=== PATIENT | male | born 1945 | race Caucasian/White ===

== ENCOUNTER 2018-04-17 10:42 | Emergency (ER) | payer OTHER, SELFPAY ==
[2018-04-17 10:49] VITALS: BP 122/81; PULSE 99; RESP 18; TEMP 36.2; O2SAT 98
[2018-04-17 11:07] VITALS: BP 129/85; PULSE 100; RESP 15; TEMP 37.1; O2SAT 97
--- NOTE | 2018-04-17 11:22 | ED_ITS ---
HPI - Male Genitourinary General Chief complaint: Urogenital-Male Stated complaint: BLOOD IN URINE Time Seen by Provider: 04/17/18 11:21 Source: patient Mode of arrival: ambulatory Limitations: no limitations History of Present Illness HPI Narrative: 72-year-old male on Pradaxa after having heart valve surgery here today with hematuria. He describes blood in his urine with pain this morning. No pain. No back pain. No history kidney stones. No fevers. He also has a bruise around his left eye. No specific trauma. He has been taking his medications. Has been having problems with follow-up with his primary doctor and also his surgeon secondary to the [place] system in his primary doctor leaving. Related Data Allergies Allergy/AdvReac Type Severity Reaction Status Date / Time No Known Drug Allergies Allergy Verified 04/17/18 10:52 Review of Systems Constitutional Denies fever(s) Cardiovascular Denies chest pain and Denies dyspnea Respiratory Denies dyspnea Gastrointestinal Gastrointestinal: Denies abdominal pain Genitourinary Reports hematuria, Denies urinary frequency, Denies urinary hesitancy and Denies urinary incontinence Musculoskeletal Denies myalgias and Denies arthralgias Integumentary/Breasts Comments: Bruising around his left eye Hematologic/Lymphatic Comments: On Pradaxa [facility] Medical History Coronary artery disease (Acute) Heart valve disease (Acute) Social History Smoking Status: Never smoker Exam Initial Vital Signs Initial Vital Signs: Vital Signs Temperature 97.2 F L 04/17/18 10:49 Pulse Rate 99 H 04/17/18 10:49 Respiratory Rate 18 04/17/18 10:49 Blood Pressure 122/81 04/17/18 10:49 Pulse Oximetry 98 04/17/18 10:49 Const General: cooperative, healthy appearing, comfortable, well developed, well groomed and No acute distress Orientation: alert, awake and oriented x3 HENMT Head: normal to inspection and normocephalic Eyes Pupils: PERRL EOM: EOM intact bilaterally Resp Effort & Inspection: normal respiratory effort Cardio Rate: regular rate Pulses: radial pulses present GI Inspection: non-distended Palpation: soft Skin Other: Small bruise on the lateral aspect of the left eye. Neuro General: alert, awake and oriented x3 Extrem General: normal to inspection and capillary refill normal Psych Appearance: grossly normal and well kempt Course Orders Ordered: ED Orders 04/17/18 11:38 Basic Metabolic Panel Stat Complete Blood Count AUTO DIFF Stat Partial Thromboplastin Time Stat Prothrombin Time INR Stat 04/17/18 12:09 Urinalysis and Microscopic Stat Vital Signs - 8 hr 04/17/18 10:49 04/17/18 11:07 04/17/18 12:11 Temperature 97.2 F L 98.7 F Pulse Rate 99 H 100 H 95 H Respiratory Rate 18 15 12 Blood Pressure 122/81 Blood Pressure [Right Arm] 129/85 126/83 Pulse Oximetry 98 97 98 MDM - Male Genitourinary Lab Data Attestation: I reviewed the patient's lab results. Result diagrams: 04/17/18 11:38 04/17/18 11:38 Lab Results 04/17/18 04/17/18 04/17/18 Range/Units 11:38 11:38 11:38 WBC 7.6 (4.5-11.0) X10^3/uL RBC 3.70 L (4.5-5.9) X10^6/uL Hgb 12.6 L (13.5-17.5) g/dL Hct 37.1 L (41-53) % MCV 100.1 H (80-100) fL MCH 34.2 H (26-34) PG MCHC 34.1 (30-36) % RDW 13.7 (11.6-14.8) % Plt Count 164 (150-400) X10^3/uL Neut % (Auto) 70.9 (50-75) % Lymph % (Auto) 19.3 L (25-40) % [place] % (Auto) 7.8 (3-14) % Eos % (Auto) 1.7 L (2-4) % Baso % (Auto) 0.3 (0-2) % Neut # (Auto) 5400 (2955-5829) /uL Lymph # (Auto) 1500 (7118-7766) /uL [place] # (Auto) 600 (0-900) /uL Eos # (Auto) 100 (0-450) /uL Baso # (Auto) 0 (0-100) /uL PT 14.4 H (10.1-12.7) SECONDS INR 1.3 (0.9-1.3) APTT 46 H (26.4-36.2) SECONDS Sodium 137 (137-145) mmol/L Potassium 4.0 (3.4-5.1) mmol/L Chloride 104 (98-107) mmol/L Carbon Dioxide 25 (22-32) mmol/L BUN 17 (9-20) mg/dL Creatinine 0.90 (0.66-1.25) mg/dL Estimated GFR > 60.0 (>60) mL/min BUN/Creatinine Ratio 18.9 (6-22) Glucose 96 (80-110) mg/dL Calcium 8.8 (8.4-10.2) mg/dL Urine Color Urine Appearance Urine pH (4.5-8.0) Ur Specific [place] (1.000-1.035) Urine Protein (Negative) Urine Glucose (UA) (Negative) g/dL Urine Ketones (NEGATIVE) Urine Occult Blood (Negative) Urine Nitrate (Negative) Urine Bilirubin (NEGATIVE) Urine Urobilinogen (0.2) E.U./dL Ur Leukocyte Esterase (NEGATIVE) Urine RBC (0-5/HPF) Urine WBC (0-5/HPF) Urine Bacteria (None) Hyaline Casts (None) Ur Culture Indicated? 04/17/18 Range/Units 12:09 WBC (4.5-11.0) X10^3/uL RBC (4.5-5.9) X10^6/uL Hgb (13.5-17.5) g/dL Hct (41-53) % MCV (80-100) fL MCH (26-34) PG MCHC (30-36) % RDW (11.6-14.8) % Plt Count (150-400) X10^3/uL Neut % (Auto) (50-75) % Lymph % (Auto) (25-40) % [place] % (Auto) (3-14) % Eos % (Auto) (2-4) % Baso % (Auto) (0-2) % Neut # (Auto) (2249-2933) /uL Lymph # (Auto) (0375-8703) /uL [place] # (Auto) (0-900) /uL Eos # (Auto) (0-450) /uL Baso # (Auto) (0-100) /uL PT (10.1-12.7) SECONDS INR (0.9-1.3) APTT (26.4-36.2) SECONDS Sodium (137-145) mmol/L Potassium (3.4-5.1) mmol/L Chloride (98-107) mmol/L Carbon Dioxide (22-32) mmol/L BUN (9-20) mg/dL Creatinine (0.66-1.25) mg/dL Estimated GFR (>60) mL/min BUN/Creatinine Ratio (6-22) Glucose (80-110) mg/dL Calcium (8.4-10.2) mg/dL Urine Color Yellow Urine Appearance Clear Urine pH 6.0 (4.5-8.0) Ur Specific [place] 1.015 (1.000-1.035) Urine Protein Negative (Negative) Urine Glucose (UA) Negative (Negative) g/dL Urine Ketones Negative (NEGATIVE) Urine Occult Blood 3+ H (Negative) Urine Nitrate Negative (Negative) Urine Bilirubin Negative (NEGATIVE) Urine Urobilinogen 0.2 (0.2) E.U./dL Ur Leukocyte Esterase Negative (NEGATIVE) Urine RBC 10-30/hpf H (0-5/HPF) Urine WBC 0-1/hpf (0-5/HPF) Urine Bacteria None seen (None) Hyaline Casts 1-5/lpf (None) Ur Culture Indicated? Cult not indicated MDM Narrative Medical decision making narrative: No signs urinary tract infection. He does have a bruise around his left eye but does not involve vision. Patient is urinating without any problems. His physical exam in in history not consistent with a kidney stone. No indication for antibiotics. I do suspect that this is secondary to the Pradaxa. Informed him that he need increase his fluid intake. Informed him that he did need to make contact with his primary care doctor. He was given return precautions. He expressed understanding agreement plan. Discharge Plan Departure Patient Disposition: Home Clinical Impression: Hematuria, Contusion Instructions: DI for Hematuria Activity Restrictions/Additional Instructions: Continue all of your medications return to the emergency department for any new or worsening symptoms. Make sure your increasing your fluid intake like we discussed.
[2018-04-17 11:48] LABS: Add Manual Diff / Slide Review NO; Basophils Absolute Auto 0 /uL (0-100); Basophils Percent Auto 0.3 % (0-2); Eosinophils Absolute Auto 100 /uL (0-450); Eosinophils Percent Auto 1.7 % (2-4); Hematocrit 37.1 % (41-53); Hemoglobin 12.6 g/dL (13.5-17.5); Lymphocytes Absolute Auto 1500 /uL (1100-4500); Lymphocytes Percent Auto 19.3 % (25-40); Mean Corpuscular HGB Conc 34.1 % (30-36); Mean Corpuscular Hemoglobin 34.2 PG (26-34); Mean Corpuscular Volume 100.1 fL (80-100); Monocytes Absolute Auto 600 /uL (0-900); Monocytes Percent Auto 7.8 % (3-14); Neutrophils Absolute Auto 5400 /uL (1500-7000); Neutrophils Percent Auto 70.9 % (50-75); Platelet Count 164 X10^3/uL (150-400); Red Cell Distribution Width 13.7 % (11.6-14.8); White Blood Cell Count 7.6 X10^3/uL (4.5-11.0)
[2018-04-17 11:52] LABS: INR 1.3 (0.9-1.3); Prothrombin Time 14.4 SECONDS (10.1-12.7)
[2018-04-17 11:54] LABS: PTT Partial Thromboplastin Tim 46 SECONDS (26.4-36.2)
[2018-04-17 11:57] LABS: BUN Creatinine Ratio 18.9 (6-22); Blood Urea Nitrogen 17 mg/dL (9-20); Calcium 8.8 mg/dL (8.4-10.2); Carbon Dioxide 25 mmol/L (22-32); Chloride 104 mmol/L (98-107); Estimated Glomerular Filt Rate > 60.0 mL/min (>60); Glucose 96 mg/dL (80-110); HEMOLYSIS < 15 (0-50); Sodium 137 mmol/L (137-145)
[2018-04-17 12:11] VITALS: BP 126/83; PULSE 95; RESP 12; O2SAT 98
[2018-04-17 12:13] LABS: Bacteria Urine None Seen
[2018-04-17 12:15] LABS: Appearance Urine UA CLEAR; Bilirubin Urine UA NEGATIVE (NEGATIVE); Color Urine UA YELLOW; Glucose Urine UA NEGATIVE (Negative); Ketones Urine UA NEGATIVE (NEGATIVE); Leukocyte Esterase Urine UA NEGATIVE (NEGATIVE); Nitrite Urine UA NEGATIVE (Negative); Occult Blood Urine UA 3+ (Negative); Protein Urine UA NEGATIVE (Negative); Specific Gravity Urine UA 1.015 (1.000-1.035); Urobilinogen Urine UA 0.2 E.U./dL (0.2)
[2018-04-17 12:24] LABS: RBC Urine 10-30/HPF (0-5/HPF); WBC Urine 0-1/HPF (0-5/HPF)
[2018-04-17 12:25] LABS: Culture Indicated Urine Cult Not Indicated; Hyaline Casts Urine 1-5/LPF
== END 2018-04-17 13:31 | disposition home or self-care (01) ==
PROVIDERS: Emergency Provider Emergency Medicine
DX: R31.9 Hematuria, unspecified (principal); S05.12XA Contusion of eyeball and orbital tissues, left eye, initial encounter
CPT/HCPCS: 36415; 80048; 81001; 85025; 85610; 85730; 99283

== ENCOUNTER 2022-02-25 11:06 | Inpatient (IN) | payer OTHER, SELFPAY ==
[2022-02-25] VITALS (28 sets, daily range): BP systolic 107–161; BP diastolic 60–91; PULSE 86–108; RESP 18–40; TEMP 36.6–37.9; O2SAT 91–98; BMI 24.4
--- NOTE | 2022-02-25 11:36 | DI.RAD.S_ITS ---
PROCEDURE: XR CHEST 1V INDICATIONS: suspected sepsis TECHNIQUE: One view of the chest was acquired. COMPARISON: None. FINDINGS: Surgical changes and devices: Median sternotomy. Lungs and pleura: Mild diffuse reticulonodular pulmonary opacity. No pleural effusions or pneumothorax. Mediastinum: Mediastinal contours appear normal. Heart size is normal. Bones and chest wall: No suspicious bony lesions. Overlying soft tissues appear unremarkable. IMPRESSION: Mild atypical pneumonia. Dictated by: Leonel Chapin M.D. on 02/25/2022 at 12:19 Approved by: Leonel Chapin M.D. on 02/25/2022 at 12:20
[2022-02-25] MEDS: SODIUM CHLORIDE 0.9% 1,000 ML 1000 ML IV (12:19)
[2022-02-25 12:42] LABS: INR 1.2 (0.9-1.3); Prothrombin Time 13.5 SECONDS (10.1-12.7)
[2022-02-25 12:45] LABS: PTT Partial Thromboplastin Tim 29 SECONDS (26-36)
[2022-02-25 12:56] LABS: Alanine Aminotransferase 26 IU/L (<50); Albumin Globulin Ratio 0.9 (1.0-2.8); Alkaline Phosphatase 101 U/L (38-126); Aspartate Aminotransferase 51 IU/L (17-59); BUN Creatinine Ratio 24.7 (6-22); Bilirubin Total 1.5 mg/dL (0.2-1.3); Blood Urea Nitrogen 22 mg/dL (9-20); Calcium 8.4 mg/dL (8.4-10.2); Carbon Dioxide 20 mmol/L (22-32); Chloride 100 mmol/L (98-107); Estimated Glomerular Filt Rate > 60 mL/min (>60); Globulin 4.3 g/dL (1.7-4.1); Glucose 122 mg/dL (80-110); Lipase 38 U/L (23-300); Sodium 132 mmol/L (137-145); Total Protein 8.3 g/dL (6.3-8.2)
[2022-02-25 12:57] LABS: Lactate (Lactic Acid) 1.4 mmol/L (0.7-2.1)
[2022-02-25 13:00] LABS: HEMOLYSIS 240 (0-50); Potassium 4.6 mmol/L (3.4-5.1)
[2022-02-25 13:04] LABS: Add Manual Diff / Slide Review NO; Basophils Absolute Auto 0 /uL (0-100); Basophils Percent Auto 0.1 % (0-2); Eosinophils Absolute Auto 0 /uL (0-450); Hematocrit 42.5 % (41-53); Hemoglobin 14.5 g/dL (13.5-17.5); Lymphocytes Absolute Auto 1000 /uL (1100-4500); Mean Corpuscular HGB Conc 34.1 % (30-36); Mean Corpuscular Hemoglobin 33.4 PG (26-34); Mean Corpuscular Volume 97.9 fL (80-100); Monocytes Absolute Auto 1000 /uL (0-900); Monocytes Percent Auto 7.5 % (3-14); Neutrophils Absolute Auto 11800 /uL (1500-7000); Neutrophils Percent Auto 85.4 % (50-75); Platelet Count 160 X10^3/uL (150-400); Red Blood Cell Count 4.34 X10^6/uL (4.5-5.9); Red Cell Distribution Width 13.7 % (11.6-14.8); White Blood Cell Count 13.8 X10^3/uL (4.5-11.0)
[2022-02-25 13:13] LABS: Procalcitonin 0.37 ng/mL (<0.5)
--- NOTE | 2022-02-25 13:13 | ED_ITS ---
HPI - Fever <Shanel Soto PA-C - Last Filed: 02/25/22 19:58> General Chief Complaint: Fever Stated Complaint: urinating blood t-4/ weak Time Seen by Provider: 02/25/22 12:22 Source: patient and family Mode of arrival: Wheelchair History of Present Illness HPI Narrative: 76-year-old male with past medical history hyperlipidemia, hypertension, type 2 diabetes, status post tricuspid and mitral valve replacements, presents to the ED with 6 days of URI symptoms. Patient endorses fever, chills, cough, chest pain on inspiration, shortness of breath, diarrhea. Patient denies nausea, vomiting, lightheadedness, dizziness, syncope. Patient states he also has some right-sided flank pain which is aggravated on inspiration. Patient states that several family members have been sick with the flu. Patient takes sildenafil for ED PRN. Last sildenafil dose was 6 days ago. Patient has smoked briefly for 1 year when he was 18 years old. Related Data Home Medications Medication Instructions Recorded Confirmed aspirin 81 mg capsule 81 mg PO DAILY 02/25/22 02/25/22 atorvastatin 40 mg tablet 40 mg PO DAILY 02/25/22 02/25/22 folic acid 1 mg tablet 1 mg PO DAILY 02/25/22 02/25/22 lisinopril 2.5 mg tablet 2.5 mg PO DAILY 02/25/22 02/25/22 mecobalamin (vitamin B12) 1,000 1,000 mcg PO DAILY 02/25/22 02/25/22 mcg chewable tablet (B12 Active) metformin 500 mg tablet 500 mg PO DAILY 02/25/22 02/25/22 metoprolol tartrate 50 mg tablet 25 mg PO DAILY 02/25/22 02/25/22 Allergies Allergy/AdvReac Type Severity Reaction Status Date / Time No Known Drug Allergies Allergy Verified 02/25/22 11:31 Review of Systems <Shanel Soto PA-C - Last Filed: 02/25/22 19:58> Review of Systems ROS Unobtainable: All systems reviewed & are unremarkable except as noted in HPI and below Constitutional Constitutional: Reports chills, Reports fatigue, Reports fever(s), Denies frequent falls and Reports lethargy Eyes Eyes: Denies change in vision, Denies eye discharge, Denies irritation and Denies loss of vision ENT Ears, Nose, Mouth, and Throat: Denies change in voice, Denies dizziness, Denies neck pain, Reports sore throat and Denies throat swelling Cardiovascular Cardiovascular: Reports chest pain, Denies irregular heart rhythm, Denies lightheadedness, Denies palpitations, Reports dyspnea, Reports dyspnea on exertion and Reports orthopnea Respiratory Respiratory: Reports cough, Reports pain on inspiration, Reports dyspnea, Reports dyspnea on exertion and Denies wheezing Gastrointestinal Gastrointestinal: Denies abdominal pain, Denies change in bowel habits, Denies diarrhea, Denies nausea and Denies vomiting Genitourinary Genitourinary: Denies hematuria, Denies flank pain, Denies urinary incontinence and Denies urinary urgency Comments: R sided flank pain Musculoskeletal Musculoskeletal: Denies back pain, Denies muscle weakness, Denies neck pain, Denies numbness and Denies tingling Integumentary/Breasts Skin/Breast: Denies pruritus, Denies erythema, Denies rash and Denies wounds Neurologic Neurologic: Denies behavioral changes, Denies confusion, Denies dizziness, Denies frequent falls, Denies loss of vision, Denies numbness and Denies tingling Psychiatric Psychiatric: Denies anxiety, Denies behavioral changes, Denies confusion, Denies depression, Denies homicidal ideation and Denies suicidal ideation Endocrine Endocrine: Reports fatigue, Denies flushing and Denies palpitations Hematologic/Lymphatic Hematologic/Lymphatic: Denies easy bruising Allergic/Immunologic Allergic/Immunologic: Denies urticaria, Denies throat swelling and Denies wheezing Patient History <Shanel Soto PA-C - Last Filed: 02/25/22 19:58> Medical History Coronary artery disease Coronary artery disease Erectile dysfunction Essential hypertension Heart valve disease Type 2 diabetes mellitus with hyperlipidemia Surgical History Heart valve replaced Family History (Updated 02/26/22 @ 03:50 by MEHRAN Preston) Mother Heart attack Brother Non-traffic vehicular accidental Social History household members: spouse Smoking Status: Never smoker Smoking Status: Never smoker alcohol intake frequency: 0-2 drinks per day Substance Use Type: does not use Exam <Shanel Soto PA-C - Last Filed: 02/25/22 19:58> Narrative Exam Narrative: Const General:?cooperative, healthy appearing and comfortable [facility] Head:?normal to inspection Ears:?hearing grossly normal bilaterally Nose:?external nose normal Face and sinus:?normal facial exam and sinuses nontender Mouth:?oral mucosae normal Throat:?posterior oropharynx normal Eyes General:?appearance normal, both eyes and all related structures Neck Neck:?normal visual inspection and no lymphadenopathy noted Resp Effort & Inspection:?normal respiratory effort Auscultation:? Scattered wheezes; fine crackles auscultated in the right lower lobe Cardio Rate:? Tachycardic Rhythm:?regular rhythm Neuro General:?patient alert, patient awake and patient oriented x3 Initial Vital Signs Initial Vital Signs: Vital Signs Temperature 100.2 F H 02/25/22 11:31 Pulse Rate 103 H 02/25/22 11:31 Respiratory Rate 24 02/25/22 11:31 Blood Pressure 137/87 02/25/22 11:31 Pulse Oximetry 94 02/25/22 11:31 Oxygen Delivery Method 02/25/22 11:31 <Jake Lucero DO - Last Filed: 02/26/22 07:15> Initial Vital Signs Initial Vital Signs: Vital Signs Temperature 100.2 F H 02/25/22 11:31 Pulse Rate 103 H 02/25/22 11:31 Respiratory Rate 24 02/25/22 11:31 Blood Pressure 137/87 02/25/22 11:31 Pulse Oximetry 94 02/25/22 11:31 Oxygen Delivery Method 02/25/22 11:31 Course <Shanel Soto PA-C - Last Filed: 02/25/22 19:58> Orders Ordered: Acetaminophen (Acetaminophen 325 Mg Tablet) 650 mg PO Q6H PRN PRN Reason: Fever/Mild Pain (1-3) Albuterol/Ipratropium (Albuterol/Ipratropium 3 Ml Ampul) 3 ml INH [id number] [facility] Last Admin: 02/25/22 23:57 Dose: 3 ml Documented By: ROSY Aspirin (Aspirin 81 Mg Chew Tab) 81 mg PO DAILY [facility] Atorvastatin Calcium (Atorvastatin 20 Mg Tablet) 40 mg PO DAILY [facility] Dextrose (Dextrose 50 % In Water 25 Gm/50 Ml Syringe) 25 gm IV PRN PRN PRN Reason: Hypoglycemia Enoxaparin Sodium (Enoxaparin 40 Mg/0.4 Ml Syringe) 40 mg SUBCUT DAILY [facility] Sodium Chloride (Normal Saline 0.9%) 1,000 mls @ 60 mls/hr IV CONT [facility] Last Admin: 02/25/22 22:14 Dose: 60 mls/hr Documented By: DEVONTE Doxycycline Hyclate 100 mg/ (Sodium Chloride) 100 mls @ 100 mls/hr IV Q12H [facility] Cefepime HCl 2 gm/ Sodium (Chloride) 100 mls @ 200 mls/hr IV Q8H [facility] Vancomycin HCl (Vancomycin) 1,000 mg in 200 mls @ 200 mls/hr IV Q12H [facility] Insulin Human Lispro (Insulin Lispro 100 Unit/Ml 3ml Vial) 0 unit SUBCUT ACHS [facility]; Protocol Last Admin: 02/25/22 22:04 Dose: Not Given Documented By: DEVONTE Lisinopril (Lisinopril 5 Mg Tablet) 2.5 mg PO DAILY [facility] Metoprolol Tartrate (Metoprolol Ir 50 Mg Tablet) 25 mg PO DAILY [facility] Naloxone HCl (Naloxone 0.4 Mg/Ml Vial) 0.2 mg IV Q2MIN PRN PRN Reason: Opiate Reversal Ondansetron HCl (Ondansetron 4 Mg/2 Ml Inj) 4 mg IV Q6HR PRN PRN Reason: Nausea And Vomiting Vancomycin HCl (Vancomycin Trough) 1 request [facility] Stop: 02/27/22 02:31 Vancomycin HCl (Vancomycin Peak) 1 request [facility] [address] [facility] Stop: 02/27/22 05:01 Discontinued Medications Albuterol/Ipratropium (Albuterol/Ipratropium 3 Ml Ampul) 3 ml INH Q1H PRN PRN Reason: Shortness Of Breath Last Admin: 02/25/22 14:06 Dose: 3 ml Documented By: CROW Diphenhydramine HCl (Diphenhydramine 25 Mg Tablet) 25 mg PO NOW ONE Stop: 02/26/22 03:27 Last Admin: 02/26/22 03:37 Dose: 25 mg Documented By: MELODY Sodium Chloride (Normal Saline 0.9%) 1,000 mls @ 1,000 mls/hr IV BOLUS ONE Stop: 02/25/22 12:35 Last Infusion: 02/25/22 13:29 Dose: 0 mls/hr Documented By: Admin: 02/25/22 12:19 Dose: 1,000 mls/hr Documented By: ROSALINDA Sodium Chloride (Normal Saline 0.9%) 2,381.37 mls @ 793.79 mls/hr 30 ml/kg infuse over 3 hr (2381.37 ml) IV NOW ONE Stop: 02/25/22 16:13 Last Infusion: 02/25/22 16:13 Dose: 0 mls/hr Documented By: Admin: 02/25/22 14:03 Dose: 793.79 mls/hr Documented By: JAYJAY Piperacillin Sod/Tazobactam (Sod 4.5 gm/ Sodium Chloride) 100 mls @ 200 mls/hr IV NOW ONE Stop: 02/25/22 13:24 Last Infusion: 02/25/22 14:49 Dose: 0 mls/hr Documented By: Admin: 02/25/22 14:04 Dose: 200 mls/hr Documented By: JAYJAY Vancomycin HCl (Vancomycin) 1,000 mg in 200 mls @ 200 mls/hr IV NOW ONE Stop: 02/25/22 14:22 Last Infusion: 02/25/22 16:12 Dose: 0 mls/hr Documented By: Admin: 02/25/22 15:04 Dose: 200 mls/hr Documented By: JAYJAY Doxycycline Hyclate 100 mg/ (Sodium Chloride) 100 mls @ 100 mls/hr IV NOW ONE Stop: 02/25/22 17:41 Last Infusion: 02/25/22 20:52 Dose: 0 mls/hr Documented By: Admin: 02/25/22 19:34 Dose: 100 mls/hr Documented By: JAYJAY Cefepime HCl 2 gm/ Sodium (Chloride) 100 mls @ 200 mls/hr IV Q8HR [facility] Last Infusion: 02/25/22 23:40 Dose: 0 mls/hr Documented By: Admin: 02/25/22 23:07 Dose: 200 mls/hr Documented By: MELODY Vancomycin HCl (Vancomycin) 1,250 mg in 250 mls @ 250 mls/hr IV Q12H [facility] Last Infusion: 02/26/22 06:19 Dose: 0 mls/hr Documented By: Admin: 02/26/22 03:37 Dose: 250 mls/hr Documented By: MELODY Ketorolac Tromethamine (Ketorolac 30 Mg/Ml Vial) 15 mg IV NOW ONE Stop: 02/25/22 14:26 Last Admin: 02/25/22 14:50 Dose: 15 mg Documented By: JAYJAY Ondansetron HCl (Ondansetron 4 Mg/2 Ml Inj) 4 mg IV NOW PRN PRN Reason: Nausea And Vomiting Ondansetron HCl (Ondansetron 4 Mg Odt) 4 mg SL NOW PRN PRN Reason: Nausea And Vomiting Vital Signs Vital signs: Vital Signs - 8 hr 02/25/22 12:06 02/25/22 12:07 02/25/22 12:07 Pulse Rate 92 H 91 H Respiratory Rate 30 H 25 H Blood Pressure 143/85 H Pulse Oximetry 94 95 Oxygen Delivery Method Oxygen Flow Rate Fraction of Inspired Oxygen 02/25/22 12:30 02/25/22 12:30 02/25/22 13:00 Pulse Rate 95 H Respiratory Rate 22 Blood Pressure 110/72 155/81 H Pulse Oximetry 94 Oxygen Delivery Method Oxygen Flow Rate Fraction of Inspired Oxygen 02/25/22 13:00 02/25/22 13:31 02/25/22 14:07 Pulse Rate 93 H 92 H Respiratory Rate 22 18 Blood Pressure Pulse Oximetry 93 94 95 Oxygen Delivery Method Room Air Nasal Cannula Nasal Cannula Oxygen Flow Rate 2 2 Fraction of Inspired Oxygen 28 02/25/22 13:30 02/25/22 14:00 02/25/22 14:30 Pulse Rate 95 H 90 97 H Respiratory Rate Blood Pressure 150/77 H 141/78 H 137/72 Pulse Oximetry 95 95 98 Oxygen Delivery Method Room Air Room Air Oxygen Flow Rate Fraction of Inspired Oxygen 02/25/22 15:00 02/25/22 15:30 02/25/22 13:30 Pulse Rate 95 H Respiratory Rate Blood Pressure 139/77 149/75 H 150/77 H Pulse Oximetry 95 Oxygen Delivery Method Room Air Oxygen Flow Rate Fraction of Inspired Oxygen 02/25/22 13:30 02/25/22 14:00 02/25/22 14:00 Pulse Rate 95 H 90 Respiratory Rate 37 H 34 H Blood Pressure 141/78 H Pulse Oximetry 94 95 Oxygen Delivery Method Oxygen Flow Rate Fraction of Inspired Oxygen 02/25/22 14:30 02/25/22 14:30 02/25/22 15:04 Pulse Rate 97 H 108 H Respiratory Rate 31 H 40 H Blood Pressure 137/72 Pulse Oximetry 93 96 Oxygen Delivery Method Oxygen Flow Rate Fraction of Inspired Oxygen 02/25/22 15:06 02/25/22 15:06 02/25/22 15:30 Pulse Rate 107 H Respiratory Rate 37 H Blood Pressure 139/77 149/75 H Pulse Oximetry 95 Oxygen Delivery Method Oxygen Flow Rate Fraction of Inspired Oxygen 02/25/22 15:30 Pulse Rate 106 H Respiratory Rate 33 H Blood Pressure Pulse Oximetry 95 Oxygen Delivery Method Oxygen Flow Rate Fraction of Inspired Oxygen <Jake Lucero, DO - Last Filed: 02/26/22 07:15> Orders Ordered: Acetaminophen (Acetaminophen 325 Mg Tablet) 650 mg PO Q6H PRN PRN Reason: Fever/Mild Pain (1-3) Albuterol/Ipratropium (Albuterol/Ipratropium 3 Ml Ampul) 3 ml INH [id number] [facility] Last Admin: 02/25/22 23:57 Dose: 3 ml Documented By: ROSY Aspirin (Aspirin 81 Mg Chew Tab) 81 mg PO DAILY [facility] Atorvastatin Calcium (Atorvastatin 20 Mg Tablet) 40 mg PO DAILY [facility] Dextrose (Dextrose 50 % In Water 25 Gm/50 Ml Syringe) 25 gm IV PRN PRN PRN Reason: Hypoglycemia Enoxaparin Sodium (Enoxaparin 40 Mg/0.4 Ml Syringe) 40 mg SUBCUT DAILY [facility] Sodium Chloride (Normal Saline 0.9%) 1,000 mls @ 60 mls/hr IV CONT [facility] Last Admin: 02/25/22 22:14 Dose: 60 mls/hr Documented By: TLS Doxycycline Hyclate 100 mg/ (Sodium Chloride) 100 mls @ 100 mls/hr IV Q12H [facility] Cefepime HCl 2 gm/ Sodium (Chloride) 100 mls @ 200 mls/hr IV Q8H [facility] Vancomycin HCl (Vancomycin) 1,000 mg in 200 mls @ 200 mls/hr IV Q12H [facility] Insulin Human Lispro (Insulin Lispro 100 Unit/Ml 3ml Vial) 0 unit SUBCUT ACHS [facility]; Protocol Last Admin: 02/25/22 22:04 Dose: Not Given Documented By: TLS Lisinopril (Lisinopril 5 Mg Tablet) 2.5 mg PO DAILY [facility] Metoprolol Tartrate (Metoprolol Ir 50 Mg Tablet) 25 mg PO DAILY [facility] Naloxone HCl (Naloxone 0.4 Mg/Ml Vial) 0.2 mg IV Q2MIN PRN PRN Reason: Opiate Reversal Ondansetron HCl (Ondansetron 4 Mg/2 Ml Inj) 4 mg IV Q6HR PRN PRN Reason: Nausea And Vomiting Vancomycin HCl (Vancomycin Trough) 1 request [facility] Stop: 02/27/22 02:31 Vancomycin HCl (Vancomycin Peak) 1 request [facility] [address] Stop: 02/27/22 05:01 Discontinued Medications Albuterol/Ipratropium (Albuterol/Ipratropium 3 Ml Ampul) 3 ml INH Q1H PRN PRN Reason: Shortness Of Breath Last Admin: 02/25/22 14:06 Dose: 3 ml Documented By: CROW Diphenhydramine HCl (Diphenhydramine 25 Mg Tablet) 25 mg PO NOW ONE Stop: 02/26/22 03:27 Last Admin: 02/26/22 03:37 Dose: 25 mg Documented By: MELODY Sodium Chloride (Normal Saline 0.9%) 1,000 mls @ 1,000 mls/hr IV BOLUS ONE Stop: 02/25/22 12:35 Last Infusion: 02/25/22 13:29 Dose: 0 mls/hr Documented By: Admin: 02/25/22 12:19 Dose: 1,000 mls/hr Documented By: ROSALINDA Sodium Chloride (Normal Saline 0.9%) 2,381.37 mls @ 793.79 mls/hr 30 ml/kg infuse over 3 hr (2381.37 ml) IV NOW ONE Stop: 02/25/22 16:13 Last Infusion: 02/25/22 16:13 Dose: 0 mls/hr Documented By: Admin: 02/25/22 14:03 Dose: 793.79 mls/hr Documented By: JAYJAY Piperacillin Sod/Tazobactam (Sod 4.5 gm/ Sodium Chloride) 100 mls @ 200 mls/hr IV NOW ONE Stop: 02/25/22 13:24 Last Infusion: 02/25/22 14:49 Dose: 0 mls/hr Documented By: Admin: 02/25/22 14:04 Dose: 200 mls/hr Documented By: JAYJAY Vancomycin HCl (Vancomycin) 1,000 mg in 200 mls @ 200 mls/hr IV NOW ONE Stop: 02/25/22 14:22 Last Infusion: 02/25/22 16:12 Dose: 0 mls/hr Documented By: Admin: 02/25/22 15:04 Dose: 200 mls/hr Documented By: JAYJAY Doxycycline Hyclate 100 mg/ (Sodium Chloride) 100 mls @ 100 mls/hr IV NOW ONE Stop: 02/25/22 17:41 Last Infusion: 02/25/22 20:52 Dose: 0 mls/hr Documented By: Admin: 02/25/22 19:34 Dose: 100 mls/hr Documented By: JAYJAY Cefepime HCl 2 gm/ Sodium (Chloride) 100 mls @ 200 mls/hr IV Q8HR [facility] Last Infusion: 02/25/22 23:40 Dose: 0 mls/hr Documented By: Admin: 02/25/22 23:07 Dose: 200 mls/hr Documented By: MELODY Vancomycin HCl (Vancomycin) 1,250 mg in 250 mls @ 250 mls/hr IV Q12H [facility] Last Infusion: 02/26/22 06:19 Dose: 0 mls/hr Documented By: Admin: 02/26/22 03:37 Dose: 250 mls/hr Documented By: MELODY Ketorolac Tromethamine (Ketorolac 30 Mg/Ml Vial) 15 mg IV NOW ONE Stop: 02/25/22 14:26 Last Admin: 02/25/22 14:50 Dose: 15 mg Documented By: JAYJAY Ondansetron HCl (Ondansetron 4 Mg/2 Ml Inj) 4 mg IV NOW PRN PRN Reason: Nausea And Vomiting Ondansetron HCl (Ondansetron 4 Mg Odt) 4 mg SL NOW PRN PRN Reason: Nausea And Vomiting Vital Signs Vital signs: Vital Signs - 8 hr 02/25/22 12:06 02/25/22 12:07 02/25/22 12:07 Pulse Rate 92 H 91 H Respiratory Rate 30 H 25 H Blood Pressure 143/85 H Pulse Oximetry 94 95 Oxygen Delivery Method Oxygen Flow Rate Fraction of Inspired Oxygen 02/25/22 12:30 02/25/22 12:30 02/25/22 13:00 Pulse Rate 95 H Respiratory Rate 22 Blood Pressure 110/72 155/81 H Pulse Oximetry 94 Oxygen Delivery Method Oxygen Flow Rate Fraction of Inspired Oxygen 02/25/22 13:00 02/25/22 13:31 02/25/22 14:07 Pulse Rate 93 H 92 H Respiratory Rate 22 18 Blood Pressure Pulse Oximetry 93 94 95 Oxygen Delivery Method Room Air Nasal Cannula Nasal Cannula Oxygen Flow Rate 2 2 Fraction of Inspired Oxygen 28 02/25/22 13:30 02/25/22 14:00 02/25/22 14:30 Pulse Rate 95 H 90 97 H Respiratory Rate Blood Pressure 150/77 H 141/78 H 137/72 Pulse Oximetry 95 95 98 Oxygen Delivery Method Room Air Room Air Oxygen Flow Rate Fraction of Inspired Oxygen 02/25/22 15:00 02/25/22 15:30 02/25/22 13:30 Pulse Rate 95 H Respiratory Rate Blood Pressure 139/77 149/75 H 150/77 H Pulse Oximetry 95 Oxygen Delivery Method Room Air Oxygen Flow Rate Fraction of Inspired Oxygen 02/25/22 13:30 02/25/22 14:00 02/25/22 14:00 Pulse Rate 95 H 90 Respiratory Rate 37 H 34 H Blood Pressure 141/78 H Pulse Oximetry 94 95 Oxygen Delivery Method Oxygen Flow Rate Fraction of Inspired Oxygen 02/25/22 14:30 02/25/22 14:30 02/25/22 15:04 Pulse Rate 97 H 108 H Respiratory Rate 31 H 40 H Blood Pressure 137/72 Pulse Oximetry 93 96 Oxygen Delivery Method Oxygen Flow Rate Fraction of Inspired Oxygen 02/25/22 15:06 02/25/22 15:06 02/25/22 15:30 Pulse Rate 107 H Respiratory Rate 37 H Blood Pressure 139/77 149/75 H Pulse Oximetry 95 Oxygen Delivery Method Oxygen Flow Rate Fraction of Inspired Oxygen 02/25/22 15:30 Pulse Rate 106 H Respiratory Rate 33 H Blood Pressure Pulse Oximetry 95 Oxygen Delivery Method Oxygen Flow Rate Fraction of Inspired Oxygen MDM - Fever <Shanel Soto PA-C - Last Filed: 02/25/22 19:58> Lab Data Result diagrams: 02/25/22 11:50 02/25/22 11:50 Labs: Lab Results 02/25/22 02/25/22 02/25/22 Range/Units 11:47 11:50 11:50 WBC 13.8 H (4.5-11.0) X10^3/uL RBC 4.34 L (4.5-5.9) X10^6/uL Hgb 14.5 (13.5-17.5) g/dL Hct 42.5 (41-53) % MCV 97.9 (80-100) fL MCH 33.4 (26-34) PG MCHC 34.1 (30-36) % RDW 13.7 (11.6-14.8) % Plt Count 160 (150-400) X10^3/uL Neut % (Auto) 85.4 H (50-75) % Lymph % (Auto) 7.0 L (25-40) % Citrus % (Auto) 7.5 (3-14) % Eos % (Auto) 0.0 L (2-4) % Baso % (Auto) 0.1 (0-2) % Neut # (Auto) 96886 H (0863-6073) /uL Lymph # (Auto) 1000 L (9740-2643) /uL Citrus # (Auto) 1000 H (0-900) /uL Eos # (Auto) 0 (0-450) /uL Baso # (Auto) 0 (0-100) /uL PT 13.5 H (10.1-12.7) SECONDS INR 1.2 (0.9-1.3) APTT 29 (26-36) SECONDS D-Dimer (<500) ng/ml Sodium (137-145) mmol/L Potassium (3.4-5.1) mmol/L Chloride (98-107) mmol/L Carbon Dioxide (22-32) mmol/L BUN (9-20) mg/dL Creatinine (0.66-1.25) mg/dL Estimated GFR (>60) mL/min BUN/Creatinine Ratio (6-22) Glucose (80-110) mg/dL Lactate (0.7-2.1) mmol/L Calcium (8.4-10.2) mg/dL Magnesium 1.9 (1.6-2.3) mg/dL Total Bilirubin (0.2-1.3) mg/dL AST (17-59) IU/L ALT (<50) IU/L Alkaline Phosphatase (38-126) U/L Total Creatine Kinase (55-170) U/L CK-MB (CK-2) CK-MB (CK-2) Rel Index Troponin I (0.01-0.034) ng/mL NT-Pro-B Natriuret Pep (<450) pg/mL Total Protein (6.3-8.2) g/dL Albumin (3.5-5.0) g/dL Globulin (1.7-4.1) g/dL Albumin/Globulin Ratio (1.0-2.8) Lipase (23-300) U/L Procalcitonin (<0.5) ng/mL SARS-CoV-2 (PCR) (Negative) Influenza A (RT-PCR) (NEGATIVE) Influenza B (RT-PCR) (NEGATIVE) RSV (PCR) (Negative) 02/25/22 02/25/22 02/25/22 Range/Units 11:50 11:50 11:50 WBC (4.5-11.0) X10^3/uL RBC (4.5-5.9) X10^6/uL Hgb (13.5-17.5) g/dL Hct (41-53) % MCV (80-100) fL MCH (26-34) PG MCHC (30-36) % RDW (11.6-14.8) % Plt Count (150-400) X10^3/uL Neut % (Auto) (50-75) % Lymph % (Auto) (25-40) % Citrus % (Auto) (3-14) % Eos % (Auto) (2-4) % Baso % (Auto) (0-2) % Neut # (Auto) (1231-4149) /uL Lymph # (Auto) (4359-2558) /uL Citrus # (Auto) (0-900) /uL Eos # (Auto) (0-450) /uL Baso # (Auto) (0-100) /uL PT (10.1-12.7) SECONDS INR (0.9-1.3) APTT (26-36) SECONDS D-Dimer (<500) ng/ml Sodium 132 L (137-145) mmol/L Potassium 4.6 (3.4-5.1) mmol/L Chloride 100 (98-107) mmol/L Carbon Dioxide 20 L (22-32) mmol/L BUN 22 H (9-20) mg/dL Creatinine 0.89 (0.66-1.25) mg/dL Estimated GFR > 60 (>60) mL/min BUN/Creatinine Ratio 24.7 H (6-22) Glucose 122 H (80-110) mg/dL Lactate 1.4 (0.7-2.1) mmol/L Calcium 8.4 (8.4-10.2) mg/dL Magnesium (1.6-2.3) mg/dL Total Bilirubin 1.5 H (0.2-1.3) mg/dL AST 51 (17-59) IU/L ALT 26 (<50) IU/L Alkaline Phosphatase 101 (38-126) U/L Total Creatine Kinase (55-170) U/L CK-MB (CK-2) CK-MB (CK-2) Rel Index Troponin I (0.01-0.034) ng/mL NT-Pro-B Natriuret Pep (<450) pg/mL Total Protein 8.3 H (6.3-8.2) g/dL Albumin 4.0 (3.5-5.0) g/dL Globulin 4.3 H (1.7-4.1) g/dL Albumin/Globulin Ratio 0.9 L (1.0-2.8) Lipase 38 (23-300) U/L Procalcitonin 0.37 (<0.5) ng/mL SARS-CoV-2 (PCR) Negative (Negative) Influenza A (RT-PCR) Flu a positive H (NEGATIVE) Influenza B (RT-PCR) Flu b negative (NEGATIVE) RSV (PCR) Negative (Negative) 02/25/22 02/25/22 02/25/22 Range/Units 14:00 14:00 14:00 WBC (4.5-11.0) X10^3/uL RBC (4.5-5.9) X10^6/uL Hgb (13.5-17.5) g/dL Hct (41-53) % MCV (80-100) fL MCH (26-34) PG MCHC (30-36) % RDW (11.6-14.8) % Plt Count (150-400) X10^3/uL Neut % (Auto) (50-75) % Lymph % (Auto) (25-40) % Citrus % (Auto) (3-14) % Eos % (Auto) (2-4) % Baso % (Auto) (0-2) % Neut # (Auto) (3158-9231) /uL Lymph # (Auto) (9471-2942) /uL Citrus # (Auto) (0-900) /uL Eos # (Auto) (0-450) /uL Baso # (Auto) (0-100) /uL PT (10.1-12.7) SECONDS INR (0.9-1.3) APTT (26-36) SECONDS D-Dimer 1462 H (<500) ng/ml Sodium (137-145) mmol/L Potassium (3.4-5.1) mmol/L Chloride (98-107) mmol/L Carbon Dioxide (22-32) mmol/L BUN (9-20) mg/dL Creatinine (0.66-1.25) mg/dL Estimated GFR (>60) mL/min BUN/Creatinine Ratio (6-22) Glucose (80-110) mg/dL Lactate (0.7-2.1) mmol/L Calcium (8.4-10.2) mg/dL Magnesium (1.6-2.3) mg/dL Total Bilirubin (0.2-1.3) mg/dL AST (17-59) IU/L ALT (<50) IU/L Alkaline Phosphatase (38-126) U/L Total Creatine Kinase 84 (55-170) U/L CK-MB (CK-2) TNP CK-MB (CK-2) Rel Index TNP Troponin I 0.015 (0.01-0.034) ng/mL NT-Pro-B Natriuret Pep 945 H (<450) pg/mL Total Protein (6.3-8.2) g/dL Albumin (3.5-5.0) g/dL Globulin (1.7-4.1) g/dL Albumin/Globulin Ratio (1.0-2.8) Lipase (23-300) U/L Procalcitonin (<0.5) ng/mL SARS-CoV-2 (PCR) (Negative) Influenza A (RT-PCR) (NEGATIVE) Influenza B (RT-PCR) (NEGATIVE) RSV (PCR) (Negative) Point of Care Testing Glucose POC 112 Imaging Data Chest x-ray: Radiologist's Impression: PROCEDURE:? XR CHEST 1V ? INDICATIONS:? suspected sepsis ? TECHNIQUE:? One view of the chest was acquired.? ? COMPARISON:? None. ? FINDINGS:? ? Surgical changes and devices:? Median sternotomy. ? Lungs and pleura:? Mild diffuse reticulonodular pulmonary opacity.? No pleural effusions or pneumothorax.? ? Mediastinum:? Mediastinal contours appear normal.? Heart size is normal.? ? Bones and chest wall:? No suspicious bony lesions.? Overlying soft tissues appear unremarkable.? ? IMPRESSION:? Mild atypical pneumonia. ? ? Dictated by: Leonel Chapin M.D. on 02/25/2022 at 12:19 ? ? CT scan - chest: Radiologist's Impression: PROCEDURE:? CT ANGIO CHEST PE PROTOCOL ? INDICATIONS:? Pleuritic CP; dyspnea ? TECHNIQUE:? After the administration of intravenous contrast, 2 mm thick sections acquired from the pulmonary apices to the posterior costophrenic angles.? 3-dimensional maximum intensity projection (MIP) coronal and sagittal reformats were then acquired through the thorax.? For radiation dose reduction, the following was used:? automated exposure control, adjustment of mA and/or kV according to patient size.? ? COMPARISON:? [facility], CR, XR CHEST 1V, 02/25/2022, 11:49. ? FINDINGS:? Image quality:? Excellent.? ? Pulmonary arteries:? Pulmonary arteries are normal in size, and demonstrate no intraluminal filling defects to suggest central pulmonary embolism.? ? Lungs and pleura:? There is diffuse bilateral bronchial and peribronchial thickening.? There are innumerable ill-defined miliary nodular densities with associated ground-glass opacities and focal areas of more confluent airspace consolidation.? Findings are consistent with a diffuse inflammatory or infectious process.? Differential also includes sarcoidosis.? Pulmonary tuberculosis is part of the differential.? No pleural effusions or pneumothorax.? Central and peripheral airways are patent.? ? Mediastinum:? Heart size is normal, without pericardial effusion.? Remote midline sternotomy, with mitral clip.? Mitral valvuloplasty.? There is normal variant arch anatomy, in which the right subclavian artery is apparently located off the proximal descending thoracic aorta.? There is fairly extensive symmetric mediastinal and bilateral hilar adenopathy.? [place] [employer] [place] lymph nodes include a pretracheal lymph node measuring 1.6 cm x 1.5 cm in diameter, a cluster of AP window lymph nodes, the largest of which measures 1.7 cm, and conglomerate subcarinal lymphadenopathy measuring approximately 3.4 x 1.4 cm.? There are calcifications in the subcarinal lymph nodes consistent with chronic granulomatous disease.? Thoracic aorta is normal in caliber and enhancement.? Esophagus is normal in caliber, without hiatal hernia.? ? Bones and chest wall:? No suspicious bony lesions.? Ribs and thoracic spine appear intact throughout.? Thyroid gland is unremarkable..? No axillary or supraclavicular adenopathy.? ? ? Abdomen:? There is mild to moderate right hydronephrosis and proximal hydroureter.? Numerous tiny splenic calcifications are consistent with chronic granulomatous disease. ? IMPRESSION:? ? 1. No evidence acute pulmonary emboli. ? 2. There are findings which are consistent with chronic granulomatous disease. ? 3. There is extensive symmetric mediastinal and hilar adenopathy, which may all be secondary to chronic granulomatous disease. ? 4. In addition, there is diffuse bronchial wall thickening and peribronchial thickening, and there are innumerable ill-defined miliary densities in the lungs, some of which cholecystic to create more confluent areas of airspace consolidation. ? 5.? Constellation of findings is consistent with a diffuse inflammatory or infectious process.? Included in the differential is pulmonary tuberculosis, as well as sarcoidosis. ? ? Comment: Findings were discussed with Dr. Lucero on? 02/25/2022 at 1614 hours ? ? Dictated by: Law Orozco M.D. on 02/25/2022 at 16:06 ? ? Approved by: Law Orozco M.D. on 02/25/2022 at 16:22 ? MDM Narrative Medical decision making narrative: 76-year-old male with past medical history hyperlipidemia, hypertension, type 2 diabetes, status post tricuspid and mitral valve replacements, presents to the ED with 6 days of URI symptoms. Concern for URI versus bronchitis versus pneumonia versus PE versus ACS versus CHF exacerbation versus sepsis versus other. Will obtain EKG, chest x-ray, labs, troponin, BNP, D-dimer, lactate. Patient was observed to desat to 90 % on room air when he attempted to sit up. Patient is on 2 L of nasal cannula for dyspnea. Patient is saturating in the mid to high 90s on 2 L of nasal cannula. Patient endorses orthopnea, states he is able to breathe better when upright. Patient complains of lower back pain. Patient given ketorolac. White count elevated to 13.8, patient is tachypneic to 24, , tachycardic to 92. Temp 100.2? F. chest x-ray shows atypical pneumonia. Patient positive for influenza A. Patient is positive SIRS with the source as pneumonia. Sepsis protocol was activated, blood cultures were obtained, sepsis fluids initiated, broad-spectrum antibiotics started. Dimer was elevated, CTA done to rule out PE. CTA does not show a pulmonary embolism, however showed diffuse bronchial wall thickening, peribronchial thi ckening, innumerable ill-defined miliary densities in the lungs with airspace consolidation. The constellation of findings is consistent with a diffuse inflammatory or infectious process, with pulmonary tuberculosis as well as sarcoidosis included in the differential. Dr. Hammond from Infectious diseases at [facility] was consulted. She recommends further infectious diseases workup including sputum testing every 8 hours which should be induced if not able to be produced spontaneously by the patient, testing for Coccidioides, urinary antigen. She recommends starting oseltamivir. She also recommended cefepime, vancomycin, doxycycline. Patient continued to be stable in the emergency room, saturating at the mid 90s on 2 L of nasal cannula. Hospitalist Dr. Echols was consulted, he accepts the patient for admission. <Jake Lucero, DO - Last Filed: 02/26/22 07:15> Lab Data Labs: Lab Results 02/25/22 02/25/22 02/25/22 Range/Units 11:47 11:50 11:50 WBC 13.8 H (4.5-11.0) X10^3/uL RBC 4.34 L (4.5-5.9) X10^6/uL Hgb 14.5 (13.5-17.5) g/dL Hct 42.5 (41-53) % MCV 97.9 (80-100) fL MCH 33.4 (26-34) PG MCHC 34.1 (30-36) % RDW 13.7 (11.6-14.8) % Plt Count 160 (150-400) X10^3/uL Neut % (Auto) 85.4 H (50-75) % Lymph % (Auto) 7.0 L (25-40) % Citrus % (Auto) 7.5 (3-14) % Eos % (Auto) 0.0 L (2-4) % Baso % (Auto) 0.1 (0-2) % Neut # (Auto) 02201 H (4881-4942) /uL Lymph # (Auto) 1000 L (1897-1795) /uL Citrus # (Auto) 1000 H (0-900) /uL Eos # (Auto) 0 (0-450) /uL Baso # (Auto) 0 (0-100) /uL PT 13.5 H (10.1-12.7) SECONDS INR 1.2 (0.9-1.3) APTT 29 (26-36) SECONDS D-Dimer (<500) ng/ml Sodium (137-145) mmol/L Potassium (3.4-5.1) mmol/L Chloride (98-107) mmol/L Carbon Dioxide (22-32) mmol/L BUN (9-20) mg/dL Creatinine (0.66-1.25) mg/dL Estimated GFR (>60) mL/min BUN/Creatinine Ratio (6-22) Glucose (80-110) mg/dL Lactate (0.7-2.1) mmol/L Calcium (8.4-10.2) mg/dL Magnesium 1.9 (1.6-2.3) mg/dL Total Bilirubin (0.2-1.3) mg/dL AST (17-59) IU/L ALT (<50) IU/L Alkaline Phosphatase (38-126) U/L Total Creatine Kinase (55-170) U/L CK-MB (CK-2) CK-MB (CK-2) Rel Index Troponin I (0.01-0.034) ng/mL NT-Pro-B Natriuret Pep (<450) pg/mL Total Protein (6.3-8.2) g/dL Albumin (3.5-5.0) g/dL Globulin (1.7-4.1) g/dL Albumin/Globulin Ratio (1.0-2.8) Lipase (23-300) U/L Procalcitonin (<0.5) ng/mL SARS-CoV-2 (PCR) (Negative) Influenza A (RT-PCR) (NEGATIVE) Influenza B (RT-PCR) (NEGATIVE) RSV (PCR) (Negative) 02/25/22 02/25/22 02/25/22 Range/Units 11:50 11:50 11:50 WBC (4.5-11.0) X10^3/uL RBC (4.5-5.9) X10^6/uL Hgb (13.5-17.5) g/dL Hct (41-53) % MCV (80-100) fL MCH (26-34) PG MCHC (30-36) % RDW (11.6-14.8) % Plt Count (150-400) X10^3/uL Neut % (Auto) (50-75) % Lymph % (Auto) (25-40) % Citrus % (Auto) (3-14) % Eos % (Auto) (2-4) % Baso % (Auto) (0-2) % Neut # (Auto) (3327-4033) /uL Lymph # (Auto) (8592-6232) /uL Citrus # (Auto) (0-900) /uL Eos # (Auto) (0-450) /uL Baso # (Auto) (0-100) /uL PT (10.1-12.7) SECONDS INR (0.9-1.3) APTT (26-36) SECONDS D-Dimer (<500) ng/ml Sodium 132 L (137-145) mmol/L Potassium 4.6 (3.4-5.1) mmol/L Chloride 100 (98-107) mmol/L Carbon Dioxide 20 L (22-32) mmol/L BUN 22 H (9-20) mg/dL Creatinine 0.89 (0.66-1.25) mg/dL Estimated GFR > 60 (>60) mL/min BUN/Creatinine Ratio 24.7 H (6-22) Glucose 122 H (80-110) mg/dL Lactate 1.4 (0.7-2.1) mmol/L Calcium 8.4 (8.4-10.2) mg/dL Magnesium (1.6-2.3) mg/dL Total Bilirubin 1.5 H (0.2-1.3) mg/dL AST 51 (17-59) IU/L ALT 26 (<50) IU/L Alkaline Phosphatase 101 (38-126) U/L Total Creatine Kinase (55-170) U/L CK-MB (CK-2) CK-MB (CK-2) Rel Index Troponin I (0.01-0.034) ng/mL NT-Pro-B Natriuret Pep (<450) pg/mL Total Protein 8.3 H (6.3-8.2) g/dL Albumin 4.0 (3.5-5.0) g/dL Globulin 4.3 H (1.7-4.1) g/dL Albumin/Globulin Ratio 0.9 L (1.0-2.8) Lipase 38 (23-300) U/L Procalcitonin 0.37 (<0.5) ng/mL SARS-CoV-2 (PCR) Negative (Negative) Influenza A (RT-PCR) Flu a positive H (NEGATIVE) Influenza B (RT-PCR) Flu b negative (NEGATIVE) RSV (PCR) Negative (Negative) 02/25/22 02/25/22 02/25/22 Range/Units 14:00 14:00 14:00 WBC (4.5-11.0) X10^3/uL RBC (4.5-5.9) X10^6/uL Hgb (13.5-17.5) g/dL Hct (41-53) % MCV (80-100) fL MCH (26-34) PG MCHC (30-36) % RDW (11.6-14.8) % Plt Count (150-400) X10^3/uL Neut % (Auto) (50-75) % Lymph % (Auto) (25-40) % Citrus % (Auto) (3-14) % Eos % (Auto) (2-4) % Baso % (Auto) (0-2) % Neut # (Auto) (3894-4683) /uL Lymph # (Auto) (7342-1256) /uL Citrus # (Auto) (0-900) /uL Eos # (Auto) (0-450) /uL Baso # (Auto) (0-100) /uL PT (10.1-12.7) SECONDS INR (0.9-1.3) APTT (26-36) SECONDS D-Dimer 1462 H (<500) ng/ml Sodium (137-145) mmol/L Potassium (3.4-5.1) mmol/L Chloride (98-107) mmol/L Carbon Dioxide (22-32) mmol/L BUN (9-20) mg/dL Creatinine (0.66-1.25) mg/dL Estimated GFR (>60) mL/min BUN/Creatinine Ratio (6-22) Glucose (80-110) mg/dL Lactate (0.7-2.1) mmol/L Calcium (8.4-10.2) mg/dL Magnesium (1.6-2.3) mg/dL Total Bilirubin (0.2-1.3) mg/dL AST (17-59) IU/L ALT (<50) IU/L Alkaline Phosphatase (38-126) U/L Total Creatine Kinase 84 (55-170) U/L CK-MB (CK-2) TNP CK-MB (CK-2) Rel Index TNP Troponin I 0.015 (0.01-0.034) ng/mL NT-Pro-B Natriuret Pep 945 H (<450) pg/mL Total Protein (6.3-8.2) g/dL Albumin (3.5-5.0) g/dL Globulin (1.7-4.1) g/dL Albumin/Globulin Ratio (1.0-2.8) Lipase (23-300) U/L Procalcitonin (<0.5) ng/mL SARS-CoV-2 (PCR) (Negative) Influenza A (RT-PCR) (NEGATIVE) Influenza B (RT-PCR) (NEGATIVE) RSV (PCR) (Negative) Point of Care Testing Glucose POC 112 Discharge Plan Departure Patient Disposition: Admitted As Inpatient Clinical Impression: Sepsis Admit Date/Time: 02/25/22 17:31 Admit Provider: Jareth Echols <Jake Lucero, DO - Last Filed: 02/26/22 07:15> Cosign ED Attending Coschantelature Attestation: Dr Lucero Co-Sign Statement: I was available for consultation during this patient's emergency department visit. This chart is signed by myself for administrative purposes only. I did not have direct contact with this patient during this visit. They were seen independently by the APC.
[2022-02-25 13:24] LABS: Influenza A - CEPHEID Flu A POSITIVE (NEGATIVE); Influenza B - CEPHEID Flu B NEGATIVE (NEGATIVE); Respiratory Syncytial Virus Negative (Negative)
[2022-02-25 13:27] LABS: COVID-19 CEPHEID 4-PLEX PCR Negative (Negative)
[2022-02-25] MEDS: SODIUM CHLORIDE 0.9% 2,381.37 ML 793.79 ML IV (14:03)
[2022-02-25] MEDS: PIPERACILLIN/TAZO 4.5 GM in SODIUM CHLORIDE 0.9% 100 ML IV (14:04)
[2022-02-25] MEDS: ALBUTEROL/IPRATROPIUM 3 ML AMPUL INH ×2 (14:06→23:57)
[2022-02-25 14:22] LABS: Creatine Kinase 84 U/L (55-170)
[2022-02-25 14:24] LABS: D Dimer 1462 ng/ml (<500)
--- NOTE | 2022-02-25 14:28 | DI.CT.S_ITS ---
PROCEDURE: CT ANGIO CHEST PE PROTOCOL INDICATIONS: Pleuritic CP; dyspnea TECHNIQUE: After the administration of intravenous contrast, 2 mm thick sections acquired from the pulmonary apices to the posterior costophrenic angles. 3-dimensional maximum intensity projection (MIP) coronal and sagittal reformats were then acquired through the thorax. For radiation dose reduction, the following was used: automated exposure control, adjustment of mA and/or kV according to patient size. COMPARISON: [facility], CR, XR CHEST 1V, 02/25/2022, 11:49. FINDINGS: Image quality: Excellent. Pulmonary arteries: Pulmonary arteries are normal in size, and demonstrate no intraluminal filling defects to suggest central pulmonary embolism. Lungs and pleura: There is diffuse bilateral bronchial and peribronchial thickening. There are innumerable ill-defined miliary nodular densities with associated ground-glass opacities and focal areas of more confluent airspace consolidation. Findings are consistent with a diffuse inflammatory or infectious process. Differential also includes sarcoidosis. Pulmonary tuberculosis is part of the differential. No pleural effusions or pneumothorax. Central and peripheral airways are patent. Mediastinum: Heart size is normal, without pericardial effusion. Remote midline sternotomy, with mitral clip. Mitral valvuloplasty. There is normal variant arch anatomy, in which the right subclavian artery is apparently located off the proximal descending thoracic aorta. There is fairly extensive symmetric mediastinal and bilateral hilar adenopathy. [place] lymph nodes include a pretracheal lymph node measuring 1.6 cm x 1.5 cm in diameter, a cluster of AP window lymph nodes, the largest of which measures 1.7 cm, and conglomerate subcarinal lymphadenopathy measuring approximately 3.4 x 1.4 cm. There are calcifications in the subcarinal lymph nodes consistent with chronic granulomatous disease. Thoracic aorta is normal in caliber and enhancement. Esophagus is normal in caliber, without hiatal hernia. Bones and chest wall: No suspicious bony lesions. Ribs and thoracic spine appear intact throughout. Thyroid gland is unremarkable.. No axillary or supraclavicular adenopathy. Abdomen: There is mild to moderate right hydronephrosis and proximal hydroureter. Numerous tiny splenic calcifications are consistent with chronic granulomatous disease. IMPRESSION: 1. No evidence acute pulmonary emboli. 2. There are findings which are consistent with chronic granulomatous disease. 3. There is extensive symmetric mediastinal and hilar adenopathy, which may all be secondary to chronic granulomatous disease. 4. In addition, there is diffuse bronchial wall thickening and peribronchial thickening, and there are innumerable ill-defined miliary densities in the lungs, some of which cholecystic to create more confluent areas of airspace consolidation. 5. Constellation of findings is consistent with a diffuse inflammatory or infectious process. Included in the differential is pulmonary tuberculosis, as well as sarcoidosis. Comment: Findings were discussed with Dr. Lucero on 02/25/2022 at 1614 hours Dictated by: Law Orozco M.D. on 02/25/2022 at 16:06 Approved by: Law Orozco M.D. on 02/25/2022 at 16:22
[2022-02-25 14:34] LABS: Troponin I 0.015 ng/mL (0.01-0.034)
[2022-02-25 14:45] LABS: NT-proBNP (BNP-Adult 18+) 945 pg/mL (<450)
[2022-02-25] MEDS: KETOROLAC 30 MG/ML VIAL 15 MG IV (14:50)
[2022-02-25] MEDS: VANCOMYCIN 1,000 MG/200 ML PIGGYBACK 200 MG IV (15:04)
[2022-02-25] MEDS: DOXYCYCLINE 100 MG in SODIUM CHLORIDE 0.9% 100 ML IV (19:34)
[2022-02-25 20:47] LABS: RBC Urine 30-100/HPF (0-5/HPF); WBC Urine 5-10/HPF (0-5/HPF)
[2022-02-25 20:48] LABS: Amorphous Sediment Urine 1+; Bacteria Urine Occasional (0-1); Culture Indicated Urine Specimen Cultured; Mucus Urine 1+ (Negative); Squamous Epithelial Cell Urine 0-1 /HPF (0-5/HPF); Transitional Epi Cells Urine 0-1/HPF (0-5/HPF)
--- NOTE | 2022-02-25 20:50 | P.HP_ITS ---
History of Present Illness History of Present Illness Date Patient Seen: 02/25/22 Time Patient Seen: 20:50 Chief complaint: urinating blood t-4/ weak Narrative: Primo Farnsworth is a 76-year-old male with a history of hyperlipidemia, CAD, hypertension, diabetes type 2, ED, status post tricuspid and mitral valve replacement who presented to the ED complaining of 6 days of fever, chills, cough, chest pain with inspiration, shortness of breath, diarrhea, and right-megan ed flank pain with inspiration. Patient also notes that he has been exposed to multiple family members who have tested positive for the flu. Patient was febrile 100.2, tachycardic heart rate 103, tachypneic RR 24, and 90% on room air BP was labile. 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 Time admit temp 97? point BP 160/85, HR 90, R 24, O2 saturation 94% on 2 L nasal cannula. Patient has a small elevated white count 13.8 with a left shift neutrophils 11,800 mono 1000. procalcitonin, lactate, flu B, COVID, RSV, all normal. Patient's BNP 945, dimer 1462, chest x- ray demonstrates mild atypical pneumonia. CTA is negative for PE, but presented with findings consistent with chronic granulomatous disease extensive symmetric mediastinal and hilar adenopathy, diffuse bronchial wall thickening and peribronchial thickening, and innumerable ill-defined miliary densities in the lungs, some of which cholecystic to create more confluent areas of airspace consolidation.Findings are suggestive of diffuse inflammatory or infectious process like pulmonary tuberculosis or sarcoidosis. Patient is admitted for sepsis without shock, atypical pneumonia, and influenza A. ? 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 Safety & Behavioral: Feels Safe in Current Yes Environment Tobacco & Substance use: Smoking Status Never smoker alcohol intake frequency 0-2 drinks per day Substance Use Type does not use Meds Home Medications and Allergies Home Medications Medication Instructions Recorded Confirmed Type aspirin 81 mg capsule 81 mg PO DAILY 02/25/22 02/25/22 History atorvastatin 40 mg tablet 40 mg PO DAILY 02/25/22 02/25/22 History folic acid 1 mg tablet 1 mg PO DAILY 02/25/22 02/25/22 History lisinopril 2.5 mg tablet 2.5 mg PO DAILY 02/25/22 02/25/22 History mecobalamin (vitamin B12) 1,000 1,000 mcg PO DAILY 02/25/22 02/25/22 History mcg chewable tablet (B12 Active) metformin 500 mg tablet 500 mg PO DAILY 02/25/22 02/25/22 History metoprolol tartrate 50 mg tablet 25 mg PO DAILY 02/25/22 02/25/22 History Allergies Allergy/AdvReac Type Severity Reaction Status Date / Time No Known Drug Allergies Allergy Verified 02/25/22 11:31 Review of Systems Review of Systems Narrative: All 12 point systems reviewed with the patient and are negative except otherwise documented. Exam Vital Signs (past 8 hours): - 02/25/22 13:00 02/25/22 13:00 02/25/22 13:31 Pulse Rate 93 H Respiratory Rate 22 Blood Pressure 155/81 H Pulse Oximetry 93 94 Oxygen Delivery Method Room Air Nasal Cannula Oxygen Flow Rate 2 Fraction of Inspired Oxygen 02/25/22 14:07 02/25/22 13:30 02/25/22 14:00 Pulse Rate 92 H 95 H 90 Respiratory Rate 18 Blood Pressure 150/77 H 141/78 H Pulse Oximetry 95 95 95 Oxygen Delivery Method Nasal Cannula Room Air Oxygen Flow Rate 2 Fraction of Inspired Oxygen 28 02/25/22 14:30 02/25/22 15:00 02/25/22 15:30 Pulse Rate 97 H 95 H Respiratory Rate Blood Pressure 137/72 139/77 149/75 H Pulse Oximetry 98 95 Oxygen Delivery Method Room Air Room Air Oxygen Flow Rate Fraction of Inspired Oxygen 02/25/22 13:30 02/25/22 13:30 02/25/22 14:00 Pulse Rate 95 H Respiratory Rate 37 H Blood Pressure 150/77 H 141/78 H Pulse Oximetry 94 Oxygen Delivery Method Oxygen Flow Rate Fraction of Inspired Oxygen 02/25/22 14:00 02/25/22 14:30 02/25/22 14:30 Pulse Rate 90 97 H Respiratory Rate 34 H 31 H Blood Pressure 137/72 Pulse Oximetry 95 93 Oxygen Delivery Method Oxygen Flow Rate Fraction of Inspired Oxygen 02/25/22 15:04 02/25/22 15:06 02/25/22 15:06 Pulse Rate 108 H 107 H Respiratory Rate 40 H 37 H Blood Pressure 139/77 Pulse Oximetry 96 95 Oxygen Delivery Method Oxygen Flow Rate Fraction of Inspired Oxygen 02/25/22 15:30 02/25/22 15:30 02/25/22 16:00 Pulse Rate 106 H 93 H Respiratory Rate 33 H Blood Pressure 149/75 H 126/60 Pulse Oximetry 95 94 Oxygen Delivery Method Nasal Cannula Nasal Cannula High Flow Nasal Cannula Oxygen Flow Rate 2 2 Fraction of Inspired Oxygen 02/25/22 16:30 02/25/22 17:00 02/25/22 17:30 Pulse Rate 88 87 87 Respiratory Rate 18 Blood Pressure 137/77 138/75 135/73 Pulse Oximetry 94 96 97 Oxygen Delivery Method Nasal Cannula Nasal Cannula Nasal Cannula Oxygen Flow Rate 2 2 2 Fraction of Inspired Oxygen 02/25/22 18:00 02/25/22 18:30 02/25/22 19:00 Pulse Rate 87 86 87 Respiratory Rate Blood Pressure 135/74 129/73 107/91 H Pulse Oximetry 97 93 91 Oxygen Delivery Method Nasal Cannula Nasal Cannula Nasal Cannula Oxygen Flow Rate 2 2 2 Fraction of Inspired Oxygen 02/25/22 19:30 Pulse Rate 88 Respiratory Rate Blood Pressure 134/85 Pulse Oximetry 92 Oxygen Delivery Method Nasal Cannula Oxygen Flow Rate 2 Fraction of Inspired Oxygen Fraction of Inspired Oxygen 28 SaO2/FiO2 Ratio 339 Oxygen Delivery Method Nasal Cannula Oxygen Flow Rate 2 Narrative Exam Narrative: General: Patient is a well-developed, well-nourished youngish 76 yr old male in no distress at this time. HEENT: Normocephalic, atraumatic, extraocular muscles intact, oral pharynx is clear and mucous membranes are moist. Neck is supple and symmetric, trachea is midline, no adenopathy, no thyroid enlargement, nontender, no masses palpated. Negative for JVD Chest: mild nasal flaring, retractions, tachypnic and labored breathing. Lungs: Auscultation of all lung lujan coarse, type decreased, left greater than right, crackles bilateral bases, occasional diffuse expiratory wheezing Cardio: S1 & S2 with regular rate and rhythm without murmur, rubs, or gallops, no carotid bruit, no cardiac pulsations present. Abdomen: Soft possible mild tenderness (pt grimace with palpation but denied pain) negative for organomegaly, or masses. Bowel sounds are hypoactive present in all 4 quadrants without guarding or rebound, no CVA tenderness. Musculoskeletal: Muscle strength and tone are equal within normal limits, no deformity, crepitus, effusions, cyanosis, clubbing or edema present. Full range of motion intact radial and pedal pulses are normal. Skin: Warm dry and intact without rashes, ulcerations or petechiae. Neuro: Alert and orientated x3, moves all extremity all extremities, sensation to touch intact, no gross deficits noted of cranial nerves. Psych: Patient has a well-kept appearance, appropriate affect, patient's mental status attitude thought context and judgments appear slightly inappropriate suggestive mild dementia, lower suspicion for encephalopathy. Objective Labs Result Diagrams: 02/25/22 11:50 02/25/22 11:50 Labs: Laboratory Results - last 24 hr 02/25/22 02/25/22 02/25/22 11:50 11:50 11:50 WBC 13.8 H RBC 4.34 L Hgb 14.5 Hct 42.5 MCV 97.9 MCH 33.4 MCHC 34.1 RDW 13.7 Plt Count 160 Neut % (Auto) 85.4 H Lymph % (Auto) 7.0 L Meagher % (Auto) 7.5 Eos % (Auto) 0.0 L Baso % (Auto) 0.1 Neut # (Auto) 36552 H Lymph # (Auto) 1000 L Meagher # (Auto) 1000 H Eos # (Auto) 0 Baso # (Auto) 0 PT 13.5 H INR 1.2 APTT 29 D-Dimer Sodium 132 L Potassium 4.6 Chloride 100 Carbon Dioxide 20 L BUN 22 H Creatinine 0.89 Estimated GFR > 60 BUN/Creatinine Ratio 24.7 H Glucose 122 H Lactate Calcium 8.4 Total Bilirubin 1.5 H AST 51 ALT 26 Alkaline Phosphatase 101 Total Creatine Kinase CK-MB (CK-2) CK-MB (CK-2) Rel Index Troponin I NT-Pro-B Natriuret Pep Total Protein 8.3 H Albumin 4.0 Globulin 4.3 H Albumin/Globulin Ratio 0.9 L Lipase 38 Procalcitonin 0.37 Urine RBC Urine WBC Ur Squamous Epith Cells Ur Transition Epith Cell Amorphous Sediment Urine Bacteria Urine Mucus Ur Culture Indicated? SARS-CoV-2 (PCR) Influenza A (RT-PCR) Influenza B (RT-PCR) RSV (PCR) 02/25/22 02/25/22 02/25/22 11:50 11:50 14:00 WBC RBC Hgb Hct MCV MCH MCHC RDW Plt Count Neut % (Auto) Lymph % (Auto) Meagher % (Auto) Eos % (Auto) Baso % (Auto) Neut # (Auto) Lymph # (Auto) Meagher # (Auto) Eos # (Auto) Baso # (Auto) PT INR APTT D-Dimer Sodium Potassium Chloride Carbon Dioxide BUN Creatinine Estimated GFR BUN/Creatinine Ratio Glucose Lactate 1.4 Calcium Total Bilirubin AST ALT Alkaline Phosphatase Total Creatine Kinase 84 CK-MB (CK-2) TNP CK-MB (CK-2) Rel Index TNP Troponin I 0.015 NT-Pro-B Natriuret Pep Total Protein Albumin Globulin Albumin/Globulin Ratio Lipase Procalcitonin Urine RBC Urine WBC Ur Squamous Epith Cells Ur Transition Epith Cell Amorphous Sediment Urine Bacteria Urine Mucus Ur Culture Indicated? SARS-CoV-2 (PCR) Negative Influenza A (RT-PCR) Flu a positive H Influenza B (RT-PCR) Flu b negative RSV (PCR) Negative 02/25/22 02/25/22 02/25/22 14:00 14:00 19:45 WBC RBC Hgb Hct MCV MCH MCHC RDW Plt Count Neut % (Auto) Lymph % (Auto) Meagher % (Auto) Eos % (Auto) Baso % (Auto) Neut # (Auto) Lymph # (Auto) Meagher # (Auto) Eos # (Auto) Baso # (Auto) PT INR APTT D-Dimer 1462 H Sodium Potassium Chloride Carbon Dioxide BUN Creatinine Estimated GFR BUN/Creatinine Ratio Glucose Lactate Calcium Total Bilirubin AST ALT Alkaline Phosphatase Total Creatine Kinase CK-MB (CK-2) CK-MB (CK-2) Rel Index Troponin I NT-Pro-B Natriuret Pep 945 H Total Protein Albumin Globulin Albumin/Globulin Ratio Lipase Procalcitonin Urine RBC 30-100/hpf H Urine WBC 5-10/hpf H Ur Squamous Epith Cells 0-1 /hpf Ur Transition Epith Cell 0-1/hpf Amorphous Sediment 1+ Urine Bacteria Occasional (0-1) Urine Mucus 1+ H Ur Culture Indicated? Specimen cultured SARS-CoV-2 (PCR) Influenza A (RT-PCR) Influenza B (RT-PCR) RSV (PCR) Assessment & Plan Assessment & Plan narrative: Primo Farnsworth is a 76-year-old male with a history of hyperlipidemia, CAD, hypertension, diabetes type 2, ED, status post tricuspid and mitral valve replacement who presented to the ED complaining of 6 days of fever, chills, cough, chest pain with inspiration, shortness of breath, diarrhea, and right- sided flank pain with inspiration presented to ED was febrile, tachycardic, tachypneic, 90% on room air with labile blood pressures, positive influenza a, atypical pneumonia, meeting SIRS criteria. 1. Sepsis without septic shock, likely secondary to atypical pneumonia, acute, present on admission -ED was febrile 100.2, tachycardic heart rate 103, tachypneic RR 24, and 90% on room air (dyspneic on exertion and mild desaturate) BP was labile. SOFA:3 -patient desatting 90% rm air, oxygen support for O2 sat 94% with 2 L appears more for comfort than actual respiratory support. -atypical pneumonia possible chronic granulomatous disease, pulmonary TB, or sarcoidosis. -On Admit observable increased work of breathing, continued mild diaphoresis, and inability to complete a sentence without taking multiple breaths -admit temp 97? point BP 160/85, HR 90, R 24, O2 saturation 94% on 2 L nasal cannula -white count 13.8 with a left shift neutrophils 11,800 mono 1000. procalcitonin, lactate, flu B, COVID, RSV- WNL. -ordered CRP, ESR, repeat procalcitonin -chest x-ray demonstrates mild atypical pneumonia -dimer 1462, CTA is negative for PE, but presented with findings consistent with chronic granulomatous disease extensive symmetric mediastinal and hilar adenopathy, diffuse bronchial wall thickening and peribronchial thickening, and innumerable ill-defined miliary densities in the lungs, some of which cholecystic to create more confluent areas of airspace consolidation.Findings are suggestive of diffuse inflammatory or infectious process like pulmonary tuberculosis or sarcoidosis. -[facility] infectious disease consult Dr. Danyelle Hammond: has graciously agreed to follow this case for phone consult. -in ED received Zosyn, vanco, doxycycline. -patient to continue vancomycin, doxycycline and cefepime -symptoms support: Respiratory consult, DuoNeb, incentive spirometry 2. Influenza A, acute, present on admission -symptom management -respiratory consult, DuoNebs, incentive spirometry 3. Hypertension, essential, chronic, present on admission -history tricuspid and mitral valve replacement -continue metoprolol 4. Diabetes [id number] in addition to hyperlipidemia, chronic, present on admission -patient admitted under diabetic protocol, low-dose sliding scale -hold metformin -continue atorvastatin, lisinopril Code status:Full Surrogate decision maker:Alicia JULIAN PCR:Negative DVT/VTE prophylaxis: Lovenox 40 and SCDs Disposition: Patient admitted to acute care, for treatment of sepsis, and symptom management of influenza a, expected length stay greater than 2 midnights. I have utilized all available immediate resources to obtain, update, or review the patient's current medications. I confirmed that the patient's advanced care plan is present, Code status is documented and/or surrogate decision maker is listed in the patient's medical record. I have personally reviewed patient's chart notes from PCP, specialists, diagnostic imaging, and laboratory, Time Spent With Patient Critical Care time: I spent a total of [] minutes of critical care time on this patient's care today; this time is exclusive of procedural time.
[2022-02-25] MEDS: SODIUM CHLORIDE 0.9% 1,000 ML 60 ML IV (22:14)
[2022-02-25 22:23] LABS: Magnesium 1.9 mg/dL (1.6-2.3)
[2022-02-25] MEDS: CEFEPIME 2 GM in SODIUM CHLORIDE 0.9% 100 ML IV (23:07)
[2022-02-26] VITALS (13 sets, daily range): BP systolic 152–168; BP diastolic 85–100; PULSE 83–107; RESP 18–26; TEMP 35.8–36.8; O2SAT 93–98
[2022-02-26] MEDS: VANCOMYCIN 1,250 MG/250 ML PIGGYBACK 250 MG IV (03:37)
[2022-02-26] MEDS: diphenhydrAMINE 25 MG TABLET PO (03:37)
[2022-02-26 07:53] LABS: Add Manual Diff / Slide Review NO; Basophils Absolute Auto 0 /uL (0-100); Basophils Percent Auto 0.1 % (0-2); Eosinophils Absolute Auto 0 /uL (0-450); Hematocrit 34.4 % (41-53); Hemoglobin 11.7 g/dL (13.5-17.5); Lymphocytes Absolute Auto 1300 /uL (1100-4500); Lymphocytes Percent Auto 12.3 % (25-40); Mean Corpuscular HGB Conc 34.1 % (30-36); Mean Corpuscular Hemoglobin 33.1 PG (26-34); Mean Corpuscular Volume 96.9 fL (80-100); Monocytes Absolute Auto 900 /uL (0-900); Monocytes Percent Auto 8.1 % (3-14); Neutrophils Absolute Auto 8700 /uL (1500-7000); Neutrophils Percent Auto 79.5 % (50-75); Platelet Count 152 X10^3/uL (150-400); Red Blood Cell Count 3.55 X10^6/uL (4.5-5.9); Red Cell Distribution Width 13.8 % (11.6-14.8); White Blood Cell Count 10.9 X10^3/uL (4.5-11.0)
[2022-02-26 07:57] LABS: Lactate (Lactic Acid) 0.9 mmol/L (0.7-2.1)
[2022-02-26 07:58] LABS: Alanine Aminotransferase 22 IU/L (<50); Albumin Globulin Ratio 0.9 (1.0-2.8); Alkaline Phosphatase 93 U/L (38-126); Aspartate Aminotransferase 34 IU/L (17-59); BUN Creatinine Ratio 21.8 (6-22); Bilirubin Total 0.5 mg/dL (0.2-1.3); Blood Urea Nitrogen 19 mg/dL (9-20); Calcium 7.8 mg/dL (8.4-10.2); Carbon Dioxide 22 mmol/L (22-32); Chloride 107 mmol/L (98-107); Estimated Glomerular Filt Rate > 60 mL/min (>60); Globulin 3.3 g/dL (1.7-4.1); Glucose 88 mg/dL (80-110); HEMOLYSIS < 15 (0-50); Potassium 3.4 mmol/L (3.4-5.1); Sodium 138 mmol/L (137-145); Total Protein 6.3 g/dL (6.3-8.2)
[2022-02-26] MEDS: CEFEPIME 2 GM in SODIUM CHLORIDE 0.9% 100 ML IV ×2 (08:07→16:39)
--- NOTE | 2022-02-26 08:40 | P.PN_ITS ---
Subjective Subjective Date Patient Seen: 02/26/22 Interval history: Patient feeling better today. 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 Due to this he smokes cannabis with a pipe, and he is wondering if his CT findings are from this. Exam Vital Signs (past 8 hours): - 02/26/22 01:00 02/26/22 04:00 02/26/22 04:03 Temperature 98.0 F 98.3 F Pulse Rate 91 H 88 Respiratory Rate 26 H 26 H Blood Pressure 161/86 H 159/92 H Pulse Oximetry 96 98 98 Oxygen Delivery Method Nasal Cannula Oxygen Flow Rate 2 2 2 Fraction of Inspired Oxygen 28 SaO2/FiO2 Ratio 339 Oxygen Delivery Method Nasal Cannula Oxygen Flow Rate 2 Narrative Exam Narrative: General: Patient is a well-developed, well-nourished youngish 76 yr old male in no distress at this time. HEENT: Normocephalic, atraumatic, extraocular muscles intact, oral pharynx is clear and mucous membranes are moist. Neck is supple and symmetric, trachea is midline, no adenopathy, no thyroid enlargement, nontender, no masses palpated. Negative for JVD Chest: mild nasal flaring, retractions, tachypnic and labored breathing. Lungs: Auscultation of all lung lujan coarse, type decreased, left greater than right, crackles bilateral bases, occasional diffuse expiratory wheezing Cardio: S1 & S2 with regular rate and rhythm without murmur, rubs, or gallops, no carotid bruit, no cardiac pulsations present. Abdomen: Soft possible mild tenderness (pt grimace with palpation but denied pain) negative for organomegaly, or masses. Bowel sounds are hypoactive present in all 4 quadrants without guarding or rebound, no CVA tenderness. Musculoskeletal: Muscle strength and tone are equal within normal limits, no deformity, crepitus, effusions, cyanosis, clubbing or edema present. Full range of motion intact radial and pedal pulses are normal. Skin: Warm dry and intact without rashes, ulcerations or petechiae. Neuro: Alert and orientated x3, moves all extremity all extremities, sensation to touch intact, no gross deficits noted of cranial nerves. Psych: Patient has a well-kept appearance, appropriate affect, patient's mental status attitude thought context and judgments appear slightly inappropriate suggestive mild dementia, lower suspicion for encephalopathy. Objective Labs Result Diagrams: 02/26/22 07:27 02/26/22 07:27 Labs: Laboratory Results - last 24 hr 02/25/22 02/25/22 02/25/22 11:47 11:50 11:50 WBC 13.8 H RBC 4.34 L Hgb 14.5 Hct 42.5 MCV 97.9 MCH 33.4 MCHC 34.1 RDW 13.7 Plt Count 160 Neut % (Auto) 85.4 H Lymph % (Auto) 7.0 L [place] % (Auto) 7.5 Eos % (Auto) 0.0 L Baso % (Auto) 0.1 Neut # (Auto) 93681 H Lymph # (Auto) 1000 L Trimble # (Auto) 1000 H Eos # (Auto) 0 Baso # (Auto) 0 PT 13.5 H INR 1.2 APTT 29 D-Dimer Sodium Potassium Chloride Carbon Dioxide BUN Creatinine Estimated GFR BUN/Creatinine Ratio Glucose Lactate Calcium Magnesium 1.9 Total Bilirubin AST ALT Alkaline Phosphatase Total Creatine Kinase CK-MB (CK-2) CK-MB (CK-2) Rel Index Troponin I NT-Pro-B Natriuret Pep Total Protein Albumin Globulin Albumin/Globulin Ratio Lipase Procalcitonin Urine RBC Urine WBC Ur Squamous Epith Cells Ur Transition Epith Cell Amorphous Sediment Urine Bacteria Urine Mucus Ur Culture Indicated? SARS-CoV-2 (PCR) Influenza A (RT-PCR) Influenza B (RT-PCR) RSV (PCR) 02/25/22 02/25/22 02/25/22 11:50 11:50 11:50 WBC RBC Hgb Hct MCV MCH MCHC RDW Plt Count Neut % (Auto) Lymph % (Auto) Trimble % (Auto) Eos % (Auto) Baso % (Auto) Neut # (Auto) Lymph # (Auto) Trimble # (Auto) Eos # (Auto) Baso # (Auto) PT INR APTT D-Dimer Sodium 132 L Potassium 4.6 Chloride 100 Carbon Dioxide 20 L BUN 22 H Creatinine 0.89 Estimated GFR > 60 BUN/Creatinine Ratio 24.7 H Glucose 122 H Lactate 1.4 Calcium 8.4 Magnesium Total Bilirubin 1.5 H AST 51 ALT 26 Alkaline Phosphatase 101 Total Creatine Kinase CK-MB (CK-2) CK-MB (CK-2) Rel Index Troponin I NT-Pro-B Natriuret Pep Total Protein 8.3 H Albumin 4.0 Globulin 4.3 H Albumin/Globulin Ratio 0.9 L Lipase 38 Procalcitonin 0.37 Urine RBC Urine WBC Ur Squamous Epith Cells Ur Transition Epith Cell Amorphous Sediment Urine Bacteria Urine Mucus Ur Culture Indicated? SARS-CoV-2 (PCR) Negative Influenza A (RT-PCR) Flu a positive H Influenza B (RT-PCR) Flu b negative RSV (PCR) Negative 02/25/22 02/25/22 02/25/22 14:00 14:00 14:00 WBC RBC Hgb Hct MCV MCH MCHC RDW Plt Count Neut % (Auto) Lymph % (Auto) [place]im[place] % (Auto) Eos % (Auto) Baso % (Auto) Neut # (Auto) Lymph # (Auto) Trimble # (Auto) Eos # (Auto) Baso # (Auto) PT INR APTT D-Dimer 1462 H Sodium Potassium Chloride Carbon Dioxide BUN Creatinine Estimated GFR BUN/Creatinine Ratio Glucose Lactate Calcium Magnesium Total Bilirubin AST ALT Alkaline Phosphatase Total Creatine Kinase 84 CK-MB (CK-2) TNP CK-MB (CK-2) Rel Index TNP Troponin I 0.015 NT-Pro-B Natriuret Pep 945 H Total Protein Albumin Globulin Albumin/Globulin Ratio Lipase Procalcitonin Urine RBC Urine WBC Ur Squamous Epith Cells Ur Transition Epith Cell Amorphous Sediment Urine Bacteria Urine Mucus Ur Culture Indicated? SARS-CoV-2 (PCR) Influenza A (RT-PCR) Influenza B (RT-PCR) RSV (PCR) 02/25/22 02/26/22 02/26/22 19:45 05:00 07:27 WBC 10.9 RBC 3.55 L Hgb 11.7 L Hct 34.4 L MCV 96.9 MCH 33.1 MCHC 34.1 RDW 13.8 Plt Count 152 Neut % (Auto) 79.5 H Lymph % (Auto) 12.3 L Trim[place] % (Auto) 8.1 Eos % (Auto) 0.0 L Baso % (Auto) 0.1 Neut # (Auto) 8700 H Lymph # (Auto) 1300 Trimble # (Auto) 900 Eos # (Auto) 0 Baso # (Auto) 0 PT INR APTT D-Dimer Sodium Potassium Chloride Carbon Dioxide BUN Creatinine Estimated GFR BUN/Creatinine Ratio Glucose Lactate Calcium Magnesium Total Bilirubin AST ALT Alkaline Phosphatase Total Creatine Kinase CK-MB (CK-2) CK-MB (CK-2) Rel Index Troponin I NT-Pro-B Natriuret Pep Total Protein Albumin Globulin Albumin/Globulin Ratio Lipase Procalcitonin 0.40 Urine RBC 30-100/hpf H Urine WBC 5-10/hpf H Ur Squamous Epith Cells 0-1 /hpf Ur Transition Epith Cell 0-1/hpf Amorphous Sediment 1+ Urine Bacteria Occasional (0-1) Urine Mucus 1+ H Ur Culture Indicated? Specimen cultured SARS-CoV-2 (PCR) Influenza A (RT-PCR) Influenza B (RT-PCR) RSV (PCR) 02/26/22 02/26/22 07:27 07:27 WBC RBC Hgb Hct MCV MCH MCHC RDW Plt Count Neut % (Auto) Lymph % (Auto) Trimble % (Auto) Eos % (Auto) Baso % (Auto) Neut # (Auto) Lymph # (Auto) Trimble # (Auto) Eos # (Auto) Baso # (Auto) PT INR APTT D-Dimer Sodium 138 Potassium 3.4 D Chloride 107 Carbon Dioxide 22 BUN 19 Creatinine 0.87 Estimated GFR > 60 BUN/Creatinine Ratio 21.8 Glucose 88 Lactate 0.9 Calcium 7.8 L Magnesium Total Bilirubin 0.5 AST 34 ALT 22 Alkaline Phosphatase 93 Total Creatine Kinase CK-MB (CK-2) CK-MB (CK-2) Rel Index Troponin I NT-Pro-B Natriuret Pep Total Protein 6.3 Albumin 3.0 L Globulin 3.3 Albumin/Globulin Ratio 0.9 L Lipase Procalcitonin Urine RBC Urine WBC Ur Squamous Epith Cells Ur Transition Epith Cell Amorphous Sediment Urine Bacteria Urine Mucus Ur Culture Indicated? SARS-CoV-2 (PCR) Influenza A (RT-PCR) Influenza B (RT-PCR) RSV (PCR) [facility] Medical History Coronary artery disease Coronary artery disease Erectile dysfunction Essential hypertension Heart valve disease Type 2 diabetes mellitus with hyperlipidemia Surgical History Heart valve replaced Family History (Updated 02/26/22 @ 03:50 by MEHRAN Preston) Mother Heart attack Brother Non-traffic vehicular accidental Social History household members: spouse Smoking Status: Never smoker Assessment & Plan Assessment & Plan narrative: 1. Sepsis without septic shock, likely secondary to atypical pneumonia vs influenza, acute, present on admission -ED was febrile 100.2, tachycardic heart rate 103, tachypneic RR 24, and 90% on room air (dyspneic on exertion and mild desaturate) BP was labile. SOFA:3 -patient desatting 90% rm air, oxygen support for O2 sat 94% with 2 L appears more for comfort than actual respiratory support. -atypical pneumonia possible chronic granulomatous disease, pulmonary TB, or sarcoidosis. -On Admit observable increased work of breathing, continued mild diaphoresis, and inability to complete a sentence without taking multiple breaths -admit temp 97? point BP 160/85, HR 90, R 24, O2 saturation 94% on 2 L nasal cannula -white count 13.8 with a left shift neutrophils 11,800 mono 1000. pr ocalcitonin, lactate, flu B, COVID, RSV- WNL. -ordered CRP, ESR, repeat procalcitonin -chest x-ray demonstrates mild atypical pneumonia -dimer 1462, CTA is negative for PE, but presented with findings consistent with chronic granulomatous disease extensive symmetric mediastinal and hilar adenopathy, diffuse bronchial wall thickening and peribronchial thickening, and innumerable ill-defined miliary densities in the lungs, some of which cholecystic to create more confluent areas of airspace consolidation. Findings are suggestive of diffuse inflammatory or infectious process like pulmonary tu berculosis or sarcoidosis. -[facility] infectious disease consult Dr. Danyelle Hammond: has graciously agreed to follow this case for phone consult. -in ED received Zosyn, vanco, doxycycline. -patient to continue vancomycin, doxycycline and cefepime -symptoms support: Respiratory consult, DuoNeb, incentive spirometry -add ESAU serum level to test for sarcoidosis -continue airborne isolation until AFB sputums neg x3 2. Influenza A, acute, present on admission -symptom management -respiratory consult, DuoNebs, incentive spirometry 3. Hypertension, essential, chronic, present on admission -history tricuspid and mitral valve replacement -continue metoprolol 4. Diabetes [id number] in addition to hyperlipidemia, chronic, present on admission -patient admitted under diabetic protocol, low-dose sliding scale -hold metformin -continue atorvastatin, lisinopril Code status:Full Surrogate decision maker:Kaaron Farnsworth COVID PCR:Negative DVT/VTE prophylaxis: Lovenox 40 and SCDs Disposition: Pending infectious workup for pulmonary findings. Likely 2-3 days. Time Spent With Patient Critical Care time: I spent a total of [] minutes of critical care time on this patient's care today; this time is exclusive of procedural time. Quality VTE Deep Vein Thrombosis/Pulmonary Embolism Present on Admission: No
[2022-02-26] MEDS: ALBUTEROL/IPRATROPIUM 3 ML AMPUL INH (08:55)
[2022-02-26] MEDS: ASPIRIN 81 MG CHEW TAB PO (09:33)
[2022-02-26] MEDS: lisinopriL 5 MG TABLET 2.5 MG PO (09:33)
[2022-02-26] MEDS: METOPROLOL IR 50 MG TABLET 25 MG PO (09:35)
[2022-02-26] MEDS: ATORVASTATIN 20 MG TABLET 40 MG PO (09:36)
[2022-02-26] MEDS: DOXYCYCLINE 100 MG in SODIUM CHLORIDE 0.9% 100 ML IV ×2 (09:37→21:15)
[2022-02-26] MEDS: ENOXAPARIN 40 MG/0.4 ML SYRINGE SUBCUT (09:37)
[2022-02-26] MEDS: POTASSIUM CHLORIDE 20 MEQ TAB 40 MEQ PO (09:39)
[2022-02-26 10:20] LABS: Erythrocyte Sedimentation Rate 83 MM/HR (0-15)
[2022-02-26] MEDS: INSULIN LISPRO 100 UNIT/ML 3ML VIAL SUBCUT (12:19)
--- NOTE | 2022-02-26 13:13 | PT-IP ANOTE ---
PT eval received. Pt with pending TB test result talked to hospitalist and agreed to hold PT eval at this time. pt mobilizing with nursing and stated that pt is SBA with mobility.
--- NOTE | 2022-02-26 13:29 | OT.IPNOTE ---
Hold OT eval as awaiting results of TB, nursing able to assist pt for all ADl needs.
--- NOTE | 2022-02-26 14:18 | CM.DANOTE ---
DCP Assessment: [facility] confirmed[facility] confirmed: Le[facility] De Leon MD @ [place] Pt is a 76 y.o. F who presented to the ER with URI symptoms. Pt admitted to the AC unit for sepsis related symptoms and to further manage and evaluation symptoms. DCP attempted to get in contact with pt by phone but DCP not able to. DCP able to get in contact with Alicia, pt . She states that pt is normally independent at baseline and drives his own POV. She states that they live in a single family home in [place]. Alicia states she attempted to come up here but they are not allowing any visits. DCP explained further to Alicia and she verbalized understanding. Alicia wants to be informed of any results and be contacted with any new information. DCP verbalized that the team will keep her aware. Alicia thankful for discussion. P: Unclear needs at this time. R/o TB infection. Anticipate home once medically stable. DCP to continue to follow case. Argelia Hill RN/CHAD Discharge Planning/Care Management CM Discharge Assessment Start: 02/26/22 14:17 Freq: Status: Active Protocol: Document 02/26/22 14:17 FERNANDO (Rec: 02/26/22 14:18 FERNANDO [id number]) Discharge Planning Assessment Assigned Civil Engineering Manager Argelia Hill RN/CHAD Advance Directives? Yes Advance Directives on File No History Provided By Patient,Medical Record Prior Living Arrangements House Household Members spouse Type of transporation used prior to Drives own vehicle admit Independent with ADL's Yes Is patient alert and oriented? Yes Discharge Plan Home Transportation Arrangement Spouse POV Referrals Initiated None needed Additional Comment At this time. Unclear needs. Whiteboard Updated in Patient Room with No name and ext. # of Civil Engineering Manager Comment Unable to enter room due to isolation precautions. Review Status In Process Please Provide Date Initial DC 02/26/22 Assessment Was Performed Next Review Type Continued Stay Review
--- NOTE | 2022-02-26 14:31 | PC.NURSE ---
Pt a&o conversant, continues on NC O2. sats in mid 90's. brought in home meds. Pt offers novjonathan c/o.
[2022-02-26] MEDS: VANCOMYCIN 1,000 MG/200 ML PIGGYBACK 200 MG IV (15:38)
[2022-02-26 19:03] LABS: Hemoglobin A1C% w Est Avg Glu 6.1 % (4.0-6.0)
[2022-02-26] MEDS: SODIUM CHLORIDE 0.9% 1,000 ML 60 ML IV (22:12)
[2022-02-26] MEDS: ACETAMINOPHEN 325 MG TABLET 650 MG PO (22:13)
[2022-02-27] VITALS (14 sets, daily range): BP systolic 117–178; BP diastolic 66–98; PULSE 78–111; RESP 16–22; TEMP 36.4–36.8; O2SAT 94–97
[2022-02-27] MEDS: diphenhydrAMINE 25 MG TABLET PO (00:19)
[2022-02-27] MEDS: CEFEPIME 2 GM in SODIUM CHLORIDE 0.9% 100 ML IV ×3 (00:19→16:18)
[2022-02-27] MEDS: VANCOMYCIN TROUGH 1 REQUEST MISC (02:35)
[2022-02-27] MEDS: VANCOMYCIN 1,000 MG/200 ML PIGGYBACK 200 MG IV (03:15)
[2022-02-27 03:55] LABS: Vancomycin Trough 7.4 ug/mL (10-20)
[2022-02-27] MEDS: VANCOMYCIN PEAK 1 REQUEST MISC (05:15)
[2022-02-27 06:00] LABS: Alanine Aminotransferase 27 IU/L (<50); Albumin 3.4 g/dL (3.5-5.0); Alkaline Phosphatase 112 U/L (38-126); Aspartate Aminotransferase 36 IU/L (17-59); Bilirubin Total 0.7 mg/dL (0.2-1.3); Blood Urea Nitrogen 18 mg/dL (9-20); Calcium 8.4 mg/dL (8.4-10.2); Carbon Dioxide 20 mmol/L (22-32); Chloride 110 mmol/L (98-107); Estimated Glomerular Filt Rate > 60 mL/min (>60); Globulin 3.5 g/dL (1.7-4.1); Glucose 115 mg/dL (80-110); HEMOLYSIS < 15 (0-50); Potassium 3.6 mmol/L (3.4-5.1); Sodium 141 mmol/L (137-145); Total Protein 6.9 g/dL (6.3-8.2)
[2022-02-27 06:04] LABS: Vancomycin Peak 18.4 ug/mL (20-40)
[2022-02-27 07:10] LABS: Add Manual Diff / Slide Review NO; Basophils Absolute Auto 0 /uL (0-100); Basophils Percent Auto 0.2 % (0-2); Eosinophils Absolute Auto 0 /uL (0-450); Eosinophils Percent Auto 0.1 % (2-4); Hematocrit 35.5 % (41-53); Hemoglobin 12.1 g/dL (13.5-17.5); Lymphocytes Absolute Auto 1400 /uL (1100-4500); Lymphocytes Percent Auto 12.4 % (25-40); Mean Corpuscular HGB Conc 34.2 % (30-36); Mean Corpuscular Hemoglobin 33.2 PG (26-34); Mean Corpuscular Volume 96.9 fL (80-100); Monocytes Absolute Auto 1000 /uL (0-900); Monocytes Percent Auto 8.9 % (3-14); Neutrophils Absolute Auto 9100 /uL (1500-7000); Neutrophils Percent Auto 78.4 % (50-75); Platelet Count 193 X10^3/uL (150-400); Red Blood Cell Count 3.66 X10^6/uL (4.5-5.9); Red Cell Distribution Width 13.5 % (11.6-14.8); White Blood Cell Count 11.7 X10^3/uL (4.5-11.0)
--- NOTE | 2022-02-27 08:28 | PT-IP ANOTE ---
Pt is still pending TB test result. Per nursing notes, pt is SBA with mobility and also confirmed yesterday by [facility]. Talked with hospitalist who stated that no therapy needs at this time and orders can be discharged.
[2022-02-27] MEDS: DOXYCYCLINE 100 MG in SODIUM CHLORIDE 0.9% 100 ML IV ×2 (08:37→22:18)
[2022-02-27] MEDS: ATORVASTATIN 20 MG TABLET 40 MG PO (08:38)
[2022-02-27] MEDS: ASPIRIN 81 MG CHEW TAB PO (08:38)
[2022-02-27] MEDS: ENOXAPARIN 40 MG/0.4 ML SYRINGE SUBCUT (08:39)
--- NOTE | 2022-02-27 08:49 | P.PN_ITS ---
Subjective Subjective Date Patient Seen: 02/27/22 Interval history: Patient feeling better but fatigued. Now off O2. No sputum was collected yesterday unfortunately. Exam Vital Signs (past 8 hours): - 02/27/22 01:55 02/27/22 04:00 02/27/22 06:00 Temperature 97.5 F L 98.3 F Pulse Rate 111 H 86 Respiratory Rate 19 22 Blood Pressure 165/97 H 162/95 H Pulse Oximetry 95 96 97 Oxygen Delivery Method Nasal Cannula Oxygen Flow Rate 2 2 2 02/27/22 02:15 Temperature Pulse Rate 88 Respiratory Rate 20 Blood Pressure Pulse Oximetry 95 Oxygen Delivery Method Oxygen Flow Rate Fraction of Inspired Oxygen 28 SaO2/FiO2 Ratio 339 Oxygen Delivery Method Nasal Cannula Oxygen Flow Rate 2 Narrative Exam Narrative: General: Patient is a well-developed, well-nourished youngish 76 yr old male in no distress at this time. HEENT: Normocephalic, atraumatic, extraocular muscles intact, oral pharynx is clear and mucous membranes are moist. Neck is supple and symmetric, trachea is midline, no adenopathy, no thyroid enlargement, nontender, no masses palpated. Negative for JVD Chest: mild nasal flaring, retractions, tachypnic and labored breathing. Lungs: Auscultation of all lung lujan coarse, type decreased, left greater th an right, crackles bilateral bases, occasional diffuse expiratory wheezing Cardio: S1 & S2 with regular rate and rhythm without murmur, rubs, or gallops, no carotid bruit, no cardiac pulsations present. Abdomen: Soft possible mild tenderness (pt grimace with palpation but denied pain) negative for organomegaly, or masses. Bowel sounds are hypoactive present in all 4 quadrants without guarding or rebound, no CVA tenderness. Musculoskeletal: Muscle strength and tone are equal within normal limits, no deformity, crepitus, effusions, cyanosis, clubbing or edema present. Full range of motion intact radial and pedal pulses are normal. Skin: Warm dry and intact without rashes, ulcerations or petechiae. Neuro: Alert and orientated x3, moves all extremity all extremities, sensation to touch intact, no gross deficits noted of cranial nerves. Psych: Patient has a well-kept appearance, appropriate affect, patient's mental status attitude thought context and judgments appear slightly inappropriate suggestive mild dementia, lower suspicion for encephalopathy. Objective Labs Result Diagrams: 02/27/22 05:15 02/27/22 05:15 Labs: Laboratory Results - last 24 hr 02/25/22 02/26/22 02/26/22 11:47 05:00 07:00 WBC RBC Hgb Hct MCV MCH MCHC RDW Plt Count Neut % (Auto) Lymph % (Auto) Wright % (Auto) Eos % (Auto) Baso % (Auto) Neut # (Auto) Lymph # (Auto) Wright # (Auto) Eos # (Auto) Baso # (Auto) ESR 83 H Sodium Potassium Chloride Carbon Dioxide BUN Creatinine Estimated GFR BUN/Creatinine Ratio Glucose Hemoglobin A1c 6.1 H Calcium Total Bilirubin AST ALT Alkaline Phosphatase C-Reactive Protein 35.0 H Total Protein Albumin Globulin Albumin/Globulin Ratio Vancomycin Peak Vancomycin Trough 02/27/22 02/27/22 02/27/22 02:35 05:15 05:15 WBC 11.7 H RBC 3.66 L Hgb 12.1 L Hct 35.5 L MCV 96.9 MCH 33.2 MCHC 34.2 RDW 13.5 Plt Count 193 Neut % (Auto) 78.4 H Lymph % (Auto) 12.4 L Wright % (Auto) 8.9 Eos % (Auto) 0.1 L Baso % (Auto) 0.2 Neut # (Auto) 9100 H Lymph # (Auto) 1400 Wright # (Auto) 1000 H Eos # (Auto) 0 Baso # (Auto) 0 ESR Sodium Potassium Chloride Carbon Dioxide BUN Creatinine Estimated GFR BUN/Creatinine Ratio Glucose Hemoglobin A1c Calcium Total Bilirubin AST ALT Alkaline Phosphatase C-Reactive Protein Total Protein Albumin Globulin Albumin/Globulin Ratio Vancomycin Peak 18.4 L Vancomycin Trough 7.4 L 02/27/22 05:15 WBC RBC Hgb Hct MCV MCH MCHC RDW Plt Count Neut % (Auto) Lymph % (Auto) Wright % (Auto) Eos % (Auto) Baso % (Auto) Neut # (Auto) Lymph # (Auto) Wright # (Auto) Eos # (Auto) Baso # (Auto) ESR Sodium 141 Potassium 3.6 Chloride 110 H Carbon Dioxide 20 L BUN 18 Creatinine 0.82 Estimated GFR > 60 BUN/Creatinine Ratio 22.0 Glucose 115 H Hemoglobin A1c Calcium 8.4 Total Bilirubin 0.7 AST 36 ALT 27 Alkaline Phosphatase 112 C-Reactive Protein Total Protein 6.9 Albumin 3.4 L Globulin 3.5 Albumin/Globulin Ratio 1.0 Vancomycin Peak Vancomycin Trough [facility] Medical History Coronary artery disease Coronary artery disease Erectile dysfunction Essential hypertension Heart valve disease Type 2 diabetes mellitus with hyperlipidemia Surgical History Heart valve replaced Family History (Updated 02/26/22 @ 03:50 by MEHRAN Preston) Mother Heart attack Brother Non-traffic vehicular accidental Social History household members: spouse Smoking Status: Never smoker Assessment & Plan Assessment & Plan narrative: 1. Sepsis without septic shock, likely secondary to atypical pneumonia vs influenza, acute, present on admission. Sepsis now resolved. -ED was febrile 100.2, tachycardic heart rate 103, tachypneic RR 24, and 90% on room air (dyspneic on exertion and mild desaturate) BP was labile. SOFA:3 -patient desatting 90% rm air, oxygen support for O2 sat 94% with 2 L appears more for comfort than actual respiratory support. -chest x-ray demonstrates mild atypical pneumonia -dimer 1462, CTA is negative for PE, but presented with findings consistent with chronic granulomatous disease extensive symmetric mediastinal and hilar a denopathy, diffuse bronchial wall thickening and peribronchial thickening, and innumerable ill-defined miliary densities in the lungs, some of which cholecystic to create more confluent areas of airspace consolidation. Findings are suggestive of diffuse inflammatory or infectious process like pulmonary tuberculosis or sarcoidosis. -[facility] infectious disease consult Dr. Danyelle Hammond: has graciously agreed to follow this case for phone consult. -patient to continue vancomycin, doxycycline and cefepime -symptoms support: Respiratory consult, DuoNeb, incentive spirometry -added ESAU serum level to test for sarcoidosis -continue airborne isolation until AFB sputums neg x3 2. Influenza A, acute, present on admission -symptom management -respiratory consult, DuoNebs, incentive spirometry 3. Hypertension, essential, chronic, present on admission -history tricuspid and mitral valve replacement -continue metoprolol 4. Diabetes [id number] in addition to hyperlipidemia, chronic, presen t on admission -patient admitted under diabetic protocol, low-dose sliding scale -hold metformin -continue atorvastatin, lisinopril Code status:Full Surrogate decision maker: Alicia JULIAN PCR:Negative DVT/VTE prophylaxis: Lovenox 40 and SCDs Disposition: Pending infectious workup for pulmonary findings. Likely 2-3 days. Time Spent With Patient Critical Care time: I spent a total of [] minutes of critical care time on this patient's care today; this time is exclusive of procedural time. Quality VTE Deep Vein Thrombosis/Pulmonary Embolism Present on Admission: No
[2022-02-27] MEDS: lisinopriL 5 MG TABLET 2.5 MG PO (09:06)
[2022-02-27] MEDS: METOPROLOL IR 50 MG TABLET 25 MG PO (09:06)
[2022-02-27] MEDS: VANCOMYCIN 1,500 MG/300 ML PIGGYBACK 200 MG IV ×2 (10:54→23:22)
--- NOTE | 2022-02-27 11:09 | OT.IPNOTE ---
Okay per hospitalist to discharge OT eval orders as per nursing,pt doing well with ADl and mobility needs. Still pending TB results.
[2022-02-27 14:49] LABS: Legionella pneumo Antigen Negative (Negative)
--- NOTE | 2022-02-27 15:27 | PC.NURSE ---
1st sputum sample collected at 1445 and sent to lab
[2022-02-27] MEDS: SODIUM CHLORIDE 0.9% 1,000 ML 60 ML IV (16:18)
[2022-02-27] MEDS: ALBUTEROL/IPRATROPIUM 3 ML AMPUL INH (19:39)
[2022-02-28] VITALS (19 sets, daily range): BP systolic 130–199; BP diastolic 71–106; PULSE 75–81; RESP 18–20; TEMP 36.4–36.7; O2SAT 94–98
[2022-02-28] MEDS: CEFEPIME 2 GM in SODIUM CHLORIDE 0.9% 100 ML IV ×4 (01:24→23:35)
[2022-02-28] MEDS: ACETAMINOPHEN 325 MG TABLET 650 MG PO ×2 (01:30→21:43)
[2022-02-28] MEDS: diphenhydrAMINE 25 MG TABLET PO ×2 (01:31→21:41)
[2022-02-28] MEDS: HYDROCODONE/ACET 5/325 TABLET 1 TAB PO (03:21)
[2022-02-28] MEDS: MORPHINE 2 MG/ML INJ IV (03:56)
[2022-02-28] MEDS: KETOROLAC 30 MG/ML VIAL 15 MG IV ×2 (06:59→13:37)
[2022-02-28 07:22] LABS: Add Manual Diff / Slide Review NO; Basophils Absolute Auto 0 /uL (0-100); Basophils Percent Auto 0.2 % (0-2); Eosinophils Absolute Auto 0 /uL (0-450); Eosinophils Percent Auto 0.2 % (2-4); Hematocrit 35.6 % (41-53); Hemoglobin 12.4 g/dL (13.5-17.5); Lymphocytes Absolute Auto 1600 /uL (1100-4500); Lymphocytes Percent Auto 13.2 % (25-40); Mean Corpuscular HGB Conc 34.6 % (30-36); Mean Corpuscular Hemoglobin 33.4 PG (26-34); Mean Corpuscular Volume 96.4 fL (80-100); Monocytes Absolute Auto 1100 /uL (0-900); Monocytes Percent Auto 8.9 % (3-14); Neutrophils Absolute Auto 9700 /uL (1500-7000); Neutrophils Percent Auto 77.5 % (50-75); Platelet Count 247 X10^3/uL (150-400); Red Cell Distribution Width 13.1 % (11.6-14.8); White Blood Cell Count 12.5 X10^3/uL (4.5-11.0)
--- NOTE | 2022-02-28 07:32 | PC.NURSE ---
pt alert and oriented X4 able to make needs known, RA sats >94 % voids per urinal clear sosa UOP able to ambulate in room independently. pt had been sleeping well , but awoke at approximately 0315 c/o severe pain in lower lungs and low back described as pressure. Md notified and order for [place] 1 tabs givn at 0321, on reassess pain had increased to 8/10 and pt was writhing in bed and unable to tolerate discomfort, again Md notified and MS 2 mg IVP administered at 0356 with relief for awhile. @ 0645 pt called and said the pain was aagian 10/10 and writhing in bed Md notified and 15mg Toradol IVP administered reassess pt was calm and appeared to be sleeping. Report given to oncheather RAMIREZ .
[2022-02-28 07:34] LABS: Alanine Aminotransferase 30 IU/L (<50); Albumin 3.5 g/dL (3.5-5.0); Alkaline Phosphatase 118 U/L (38-126); Aspartate Aminotransferase 40 IU/L (17-59); BUN Creatinine Ratio 19.6 (6-22); Bilirubin Total 0.6 mg/dL (0.2-1.3); Blood Urea Nitrogen 18 mg/dL (9-20); Calcium 8.8 mg/dL (8.4-10.2); Carbon Dioxide 19 mmol/L (22-32); Chloride 111 mmol/L (98-107); Estimated Glomerular Filt Rate > 60 mL/min (>60); Globulin 3.6 g/dL (1.7-4.1); Glucose 120 mg/dL (80-110); HEMOLYSIS < 15 (0-50); Potassium 3.8 mmol/L (3.4-5.1); Sodium 141 mmol/L (137-145); Total Protein 7.1 g/dL (6.3-8.2)
[2022-02-28] MEDS: lisinopriL 5 MG TABLET 2.5 MG PO (08:26)
[2022-02-28] MEDS: ASPIRIN 81 MG CHEW TAB PO (08:26)
[2022-02-28] MEDS: METOPROLOL IR 50 MG TABLET 25 MG PO ×2 (08:27→21:41)
[2022-02-28] MEDS: ENOXAPARIN 40 MG/0.4 ML SYRINGE SUBCUT (08:27)
[2022-02-28] MEDS: ATORVASTATIN 20 MG TABLET 40 MG PO (08:27)
--- NOTE | 2022-02-28 09:25 | PM.PN.1 ---
Subjective Subjective Interval history: Patient having severe bilateral flank pain which started last night and improved with IV toradol. Also some chest tightness this morning. Says pain is like getting kicked in the back and is worse with deep breaths. Exam Vital Signs (past 8 hours): - 02/28/22 03:46 02/28/22 03:47 02/28/22 04:00 Temperature 98.1 F Pulse Rate 81 Respiratory Rate 20 Blood Pressure 194/102 H Pulse Oximetry 96 96 Oxygen Delivery Method Room Air Oxygen Flow Rate 0 02/28/22 08:11 02/28/22 08:26 Temperature 97.5 F L Pulse Rate 80 80 Respiratory Rate 20 Blood Pressure 182/97 H 182/97 H Pulse Oximetry 98 Oxygen Delivery Method Oxygen Flow Rate 1 Fraction of Inspired Oxygen 21 SaO2/FiO2 Ratio 447 Oxygen Delivery Method Room Air Oxygen Flow Rate 1 Narrative Exam Narrative: General: Patient is a well-developed, well-nourished youngish 76 yr old male in no distress at this time. HEENT: Normocephalic, atraumatic, extraocular muscles intact, oral pharynx is clear and mucous membranes are moist. Neck is supple and symmetric, trachea is midline, no adenopathy, no thyroid enlargement, nontender, no masses palpated. Negative for JVD Chest: mild nasal flaring, retractions, tachypnic and labored breathing. Lungs: Auscultation of all lung lujan coarse, type decreased, left greater than right, crackles bilateral bases, occasional diffuse expiratory wheezing Cardio: S1 & S2 with regular rate and rhythm without murmur, rubs, or gallops, no carotid bruit, no cardiac pulsations present. Abdomen: Soft possible mild tenderness (pt grimace with palpation but denied pain) negative for organomegaly, or masses. Bowel sounds are hypoactive present in all 4 quadrants without guarding or rebound, no CVA tenderness. Musculoskeletal: Pain to palpation of bilateral flanks, worse pain with deep breaths Skin: Warm dry and intact without rashes, ulcerations or petechiae. Neuro: Alert and orientated x3, moves all extremity all extremities, sensation to touch intact, no gross deficits noted of cranial nerves. Psych: Patient has a well-kept appearance, appropriate affect, patient's mental status attitude thought context and judgments appear slightly inappropriate suggestive mild dementia, lower suspicion for encephalopathy. Objective Labs Result Diagrams: 02/28/22 06:53 02/28/22 06:53 Labs: Laboratory Results - last 24 hr 02/26/22 02/28/22 02/28/22 07:27 06:53 06:53 WBC 12.5 H RBC 3.70 L Hgb 12.4 L Hct 35.6 L MCV 96.4 MCH 33.4 MCHC 34.6 RDW 13.1 Plt Count 247 Neut % (Auto) 77.5 H Lymph % (Auto) 13.2 L Kimble % (Auto) 8.9 Eos % (Auto) 0.2 L Baso % (Auto) 0.2 Neut # (Auto) 9700 H Lymph # (Auto) 1600 Kimble # (Auto) 1100 H Eos # (Auto) 0 Baso # (Auto) 0 Sodium 141 Potassium 3.8 Chloride 111 H Carbon Dioxide 19 L BUN 18 Creatinine 0.92 Estimated GFR > 60 BUN/Creatinine Ratio 19.6 Glucose 120 H Calcium 8.8 Total Bilirubin 0.6 AST 40 ALT 30 Alkaline Phosphatase 118 Total Protein 7.1 Albumin 3.5 Globulin 3.6 Albumin/Globulin Ratio 1.0 L.pneumophila Antigen Negative [facility] Medical History Coronary artery disease Coronary artery disease Erectile dysfunction Essential hypertension Heart valve disease Type 2 diabetes mellitus with hyperlipidemia Surgical History Heart valve replaced Family History (Updated 02/26/22 @ 03:50 by MEHRAN Preston) Mother Heart attack Brother Non-traffic vehicular accidental Social History household members: spouse Smoking Status: Never smoker Assessment & Plan Assessment & Plan narrative: 1. Sepsis without septic shock, likely secondary to atypical pneumonia vs influenza, acute, present on admission. Sepsis now resolved. -ED was febrile 100.2, tachycardic heart rate 103, tachypneic RR 24, and 90% on room air (dyspneic on exertion and mild desaturate) BP was labile. SOFA:3 -patient desatting 90% rm air, oxygen support for O2 sat 94% with 2 L appears more for comfort than actual respiratory support. -chest x-ray demonstrates mild atypical pneumonia -dimer 1462, CTA is negative for PE, but presented with findings consistent with chronic granulomatous disease extensive symmetric mediastinal and hilar adenopathy, diffuse bronchial wall thickening and peribronchial thickening, and innumerable ill-defined miliary densities in the lungs, some of which cholecystic to create more confluent areas of airspace consolidation. Findings are suggestive of diffuse inflammatory or infectious process like pulmonary tuberculosis or sarcoidosis. -[facility] infectious disease consult Dr. Danyelle Hammond: has graciously agreed to follow this case for phone consult. -patient to continue vancomycin, doxycycline and cefepime -symptoms support: Respiratory consult, DuoNeb, incentive spirometry -added ESAU serum level to test for sarcoidosis -continue airborne isolation until AFB sputums neg x3 2. Influenza A, acute, present on admission -symptom management -respiratory consult, DuoNebs, incentive spirometry 3. Hypertension, essential, chronic, present on admission -history tricuspid and mitral valve replacement -continue metoprolol 4. Diabetes [id number]-[id number] in addition to hyperlipidemia, chronic, present on admission -patient admitted under diabetic protocol, low-dose sliding scale -hold metformin -continue atorvastatin, lisinopril 5. Bilateral flank pain, not present on admission -etiology could be pleuritic pain from PNA vs kidney stones vs dissection -stat CTA CAP ordered -continue IV toradol PRN Code status:Full Surrogate decision maker: Alicia JULIAN PCR:Negative DVT/VTE prophylaxis: Lovenox 40 and SCDs Disposition: Pending infectious workup for pulmonary findings. Likely 2-3 days. Time Spent With Patient Critical Care time: I spent a total of [] minutes of critical care time on this patient's care today; this time is exclusive of procedural time. Quality VTE Deep Vein Thrombosis/Pulmonary Embolism Present on Admission: No
[2022-02-28] MEDS: VANCOMYCIN 1,500 MG/300 ML PIGGYBACK 200 MG IV (10:44)
[2022-02-28] MEDS: DOXYCYCLINE 100 MG in SODIUM CHLORIDE 0.9% 100 ML IV (13:13)
--- NOTE | 2022-02-28 14:08 | DI.CT.S_ITS ---
PROCEDURE: CT ANGIO CHEST ABDOMEN PELVIS INDICATIONS: severe flank pain,rule out AAA, dissection, or kidney stones TECHNIQUE: Precontrast 5 mm thick sections acquired from the lung apices to the iliac crests. After the administration of intravenous contrast, 2.5 mm thick sections again acquired from the lung apices to the iliac crests. Maximum intensity projection (MIP) oblique sagittal and coronal reformats were then acquired. For radiation dose reduction, the following was used: automated exposure control. COMPARISON: [facility], CT, CT ANGIO CHEST PE PROTOCOL, 02/25/2022, 14:49. FINDINGS: Image quality: Adequate. Aorta: No aneurysm or dissection. CHEST: Lungs and pleura: Interval worsening of left lower lobe consolidation and bilateral diffuse micronodularity, which appears largely in a peribronchovascular/centrilobular distribution. Interlobular septal thickening also demonstrated, also worsened compared to before. Small bilateral pleural effusions, left larger than right, new. Mediastinum: Aberrant right subclavian artery variant anatomy. No pericardial effusion. Coronary artery calcifications are present. Mitral valve prosthesis. Nonspecific mediastinal and hilar adenopathy present. Bones and chest wall: No axillary adenopathy by size criteria. No vertebral body compression fractures. Prior median sternotomy. ABDOMEN: Solid organs: Liver is unremarkable in size. Multiple hepatic and splenic calcifications/granulomata redemonstrated. Gallbladder is unremarkable . Biliary system is non dilated. Pancreas enhances normally. Spleen is normal in size and enhancement. No adrenal nodules. A 6 millimeter stone is present at the right UPJ with moderate upstream hydronephrosis. Density of the stone is approximately 851 Hounsfield units. Mild delay in right renal enhancement. Peritoneum and bowel: No free air or substantial free fluid. No bowel obstruction. Colonic diverticulosis present without evidence of acute diverticulitis. Mild right retroperitoneal edema/fluid/stranding. Nodes and vessels: No retroperitoneal or mesenteric adenopathy by size criteria. Inferior vena cava is normal in morphology. PELVIS: Genitourinary: Bladder wall thickness is normal. Bones: No vertebral body compression fractures. IMPRESSION: 1. No aortic dissection demonstrated. 2. A 6 millimeter stone is present at the right ureteropelvic junction with moderate upstream hydronephrosis. 3. Interval worsening of left lower lobe consolidation and bilateral pulmonary micronodularity. New pleural effusions also demonstrated. Findings are suspected to be at least in part related to pulmonary edema, underlying infection/pneumonia also possible/suspected. Dictated by: Evan Shoemaker M.D. on 02/28/2022 at 14:54 Approved by: Evan Shoemaker M.D. on 02/28/2022 at 15:14
[2022-02-28] MEDS: FUROSEMIDE 40 MG/4 ML VIAL IV (16:08)
[2022-02-28 16:25] LABS: Troponin I 0.014 ng/mL (0.01-0.034)
[2022-02-28] MEDS: TAMSULOSIN 0.4 MG CAPSULE 0.8 MG PO (17:25)
[2022-02-28 18:34] LABS: Angiotensin Converting Enzyme 12 U/L (14-82)
--- NOTE | 2022-02-28 20:20 | PC.NURSE ---
13:20 Pt used call light for help. Pt states, pain 10/10 sharp, right and left side of back under ribs and chest ache that is dull left side of chest that is worse when he breathes in. Patient moaning and states,pain is killing me. Pt states, [facility] told me that he has kidney stones that are deep and not concerning. Vital signs b/p 199/106, HR 78, O2 97%, RR 22, temp. 97.8. 13:30 IV toradol given see MAY. Spoke to Dr. Echols in person and notified. Dr. Echols states, will order troponin, EKG, CTA chest/abdomen/pelvis, nitroglycerin, b/p increase may be from pain will do cardiac work up, will see patient. 14:03 Reassessed patient, patient states,pain 0/10 and no chest ache, reassessed vital signs b/p 178/90 heart rate 80, notified Dr. Echols and he states, do not give nitroglycerin since chest ache has resolved, blood pressure ok.
[2022-02-28] MEDS: KETOROLAC 30 MG/ML VIAL IV (21:41)
[2022-02-28 22:37] LABS: Vancomycin Trough 21.1 ug/mL (10-20)
[2022-02-28] MEDS: VANCOMYCIN TROUGH 1 REQUEST MISC (22:47)
[2022-03-01] VITALS (9 sets, daily range): BP systolic 160–186; BP diastolic 88–96; PULSE 72–94; RESP 16–20; TEMP 36.3–37.1; O2SAT 95–98
[2022-03-01] MEDS: DOXYCYCLINE 100 MG in SODIUM CHLORIDE 0.9% 100 ML IV ×2 (00:54→12:01)
--- NOTE | 2022-03-01 09:04 | PM.PN.1 ---
Subjective Subjective Date Patient Seen: 03/01/22 Interval history: Patient feeling much better today and has no further flank pain. Exam Vital Signs (past 8 hours): - 03/01/22 02:58 03/01/22 03:11 Temperature 97.3 F L Pulse Rate 72 Respiratory Rate 20 Blood Pressure 160/88 H Pulse Oximetry 96 98 Oxygen Delivery Method Nasal Cannula Oxygen Flow Rate 2 4 Fraction of Inspired Oxygen 28 SaO2/FiO2 Ratio 342 Oxygen Delivery Method Nasal Cannula Oxygen Flow Rate 4 Narrative Exam Narrative: General: Patient is a well-developed, well-nourished youngish 76 yr old male in no distress at this time. HEENT: Normocephalic, atraumatic, extraocular muscles intact, oral pharynx is clear and mucous membranes are moist. Neck is supple and symmetric, trachea is midline, no adenopathy, no thyroid enlargement, nontender, no masses palpated. Negative for JVD Chest: mild nasal flaring, retractions, tachypnic and labored breathing. Lungs: Auscultation of all lung lujan coarse, type decreased, left greater than right, crackles bilateral bases, occasional diffuse expiratory wheezing Cardio: S1 & S2 with regular rate and rhythm without murmur, rubs, or gallops, no carotid bruit, no cardiac pulsations present. Abdomen: Soft possible mild tenderness (pt grimace with palpation but denied pain) negative for organomegaly, or masses. Bowel sounds are hypoactive present in all 4 quadrants without guarding or rebound, no CVA tenderness. Musculoskeletal: No flank pain currently Skin: Warm dry and intact without rashes, ulcerations or petechiae. Neuro: Alert and orientated x3, moves all extremity all extremities, sensation to touch intact, no gross deficits noted of cranial nerves. Psych: Patient has a well-kept appearance, appropriate affect, patient's mental status attitude thought context and judgments appear slightly inappropriate suggestive mild dementia, lower suspicion for encephalopathy. Objective Labs Result Diagrams: 02/28/22 06:53 02/28/22 06:53 Labs: Laboratory Results - last 24 hr 02/26/22 02/28/22 02/28/22 07:27 15:35 21:45 Troponin I 0.014 Angiotensin Convert Enz 12 L Vancomycin Trough 21.1 H* [facility] Medical History Coronary artery disease Coronary artery disease Erectile dysfunction Essential hypertension Heart valve disease Type 2 diabetes mellitus with hyperlipidemia Surgical History Heart valve replaced Family History (Updated 02/26/22 @ 03:50 by Nedra Morgan [facility]) Mother Heart attack Brother Non-traffic vehicular accidental Social History household members: spouse Smoking Status: Never smoker Assessment & Plan Assessment & Plan narrative: 1. Sepsis without septic shock, likely secondary to atypical pneumonia vs influenza, acute, present on admission. Sepsis now resolved. -ED was febrile 100.2, tachycardic heart rate 103, tachypneic RR 24, and 90% on room air (dyspneic on exertion and mild desaturate) BP was labile. SOFA:3 -patient desatting 90% rm air, oxygen support for O2 sat 94% with 2 L appears more for comfort than actual respiratory support. -chest x-ray demonstrates mild atypical pneumonia -dimer 1462, CTA is negative for PE, but presented with findings consistent with chronic granulomatous disease extensive symmetric mediastinal and hilar adenopathy, diffuse bronchial wall thickening and peribronchial thickening, and innumerable ill-defined miliary densities in the lungs, some of which cholecystic to create more confluent areas of airspace consolidation. Findings are suggestive of diffuse inflammatory or infectious process like pulmonary tuberculosis or sarcoidosis. -[facility] infectious disease consult Dr. Danyelle Hammond: has graciously agreed to follow this case for phone consult. -patient to continue vancomycin, doxycycline and cefepime -symptoms support: Respiratory consult, DuoNeb, incentive spirometry -ESAU level 12 pointing away from sarcoidosis -continue airborne isolation until AFB sputums neg x3 2. Influenza A, acute, present on admission -symptom management -respiratory consult, DuoNebs, incentive spirometry 3. Hypertension, essential, chronic, present on admission -history tricuspid and mitral valve replacement -continue metoprolol 4. Diabetes plu-xoadsnq-lgmwshohj in addition to hyperlipidemia, chronic, present on admission -patient admitted under diabetic protocol, low-dose sliding scale -hold metformin -continue atorvastatin, lisinopril 5. Right nephrolithiasis with mod hydronephrosis, not present on admission -CT KUB on 02/28 with 6mm stone at uteropelvic juction with mod hydro -Dr. Dyson urology consulted, rec flomax and pain control -patient's pain resolved on 03/01 suggesting he may have passed the stone -repeat CT KUB ordered to confirm resolution -continue IV toradol PRN Code status:Full Surrogate decision maker: Alicia JULIAN PCR:Negative DVT/VTE prophylaxis: Lovenox 40 and SCDs Disposition: Pending infectious workup for pulmonary findings. Home in likely 1 day. Time Spent With Patient Critical Care time: I spent a total of [] minutes of critical care time on this patient's care today; this time is exclusive of procedural time. Quality VTE Deep Vein Thrombosis/Pulmonary Embolism Present on Admission: No
[2022-03-01] MEDS: TAMSULOSIN 0.4 MG CAPSULE 0.8 MG PO (09:21)
[2022-03-01] MEDS: ATORVASTATIN 20 MG TABLET 40 MG PO (09:21)
[2022-03-01] MEDS: CEFEPIME 2 GM in SODIUM CHLORIDE 0.9% 100 ML IV ×2 (09:21→15:09)
[2022-03-01] MEDS: lisinopriL 5 MG TABLET 2.5 MG PO (09:22)
[2022-03-01] MEDS: METOPROLOL IR 50 MG TABLET 25 MG PO ×2 (09:23→21:13)
[2022-03-01] MEDS: SENNOSIDES 8.6 MG TABLET PO ×2 (11:08→21:14)
[2022-03-01] MEDS: polyethylene glycoL 3350 17 GM POWD.PACK PO (11:08)
[2022-03-01 11:54] LABS: Vancomycin Peak 14.9 ug/mL (20-40)
--- NOTE | 2022-03-01 15:25 | CM.DPC ---
Addendum entered by Argelia Hill R.N. 03/01/22 15:28: PT/OT are discharging orders. ADJ Original Note: DCP Cont: Pt was discussed in morning rounds. Per MD, pt now has kidney stone and being managed with pain medication. Pt needing to pass stone and urology is consulted. Awaiting sputum results. PT still not able to work with pt. Unclear needs. DCP to continue to follow case. Argelia Hill RN/DCP
--- NOTE | 2022-03-01 15:33 | DI.CT.S_ITS ---
PROCEDURE: CT KIDNEY URETER BLADDER (KUB) INDICATIONS: assess for resolution of kidney stone TECHNIQUE: Axial sections were acquired from the lung bases to the pubic symphysis. Coronal and sagittal reformats were performed. For radiation dose reduction, the following was used: automated exposure control, adjustment of mA and/or kV according to patient size. COMPARISON: [facility], CT, CT ANGIO CHEST ABDOMEN PELVIS, 02/28/2022, 14:31. FINDINGS: Image quality: Excellent. Lung bases: Ill-defined patchy ground-glass opacities are again seen scattered in visualized bilateral lower lung lujan not significantly changed from previous study. Small bilateral pleural effusion is seen. Calcified granuloma are again seen in right lower lobe unchanged from prior study. Heart: N heart size is normal, no pericardial effusion. Pacemaker leads are seen. URINARY: Right Kidney: There is moderate right-sided hydronephrosis unchanged from previous study. 6 millimeter hyperdensity is noted involving posterior cortex of lower pole right kidney new since previous study and is of indeterminate etiology. Right Ureter: 7 millimeter proximal right ureteral stone is again seen just distal to right UPJ and measures 648 Hounsfield unit in density. More distal right ureter is normal in size. Left Kidney: 1-2 mm nonobstructing left renal calculi are seen. No left-sided hydronephrosis. Left Ureter: No hydroureter. Bladder: Diffuse bladder wall thickening is seen. No discrete bladder wall mass. Excreted contrast material is noted in bilateral ureters and urinary bladder. No definite bladder stones. ABDOMEN: Liver: There is hepatomegaly. No discrete hepatic lesion.. Gallbladder: Unremarkable. Biliary ducts: Unremarkable. Pancreas: Unremarkable. Spleen: Numerous calcified granuloma are seen scattered in splenic parenchyma.. Adrenal Glands: Unremarkable. Stomach and Bowel: Stomach, small bowel loops, and colon are unremarkable. Sigmoid diverticulosis is again seen no CT evidence of acute diverticulitis. No abscess collection. Peritoneum: No abnormal intraperitoneal fluid. No free air. Ventral Wall: No hernia. Abdominal Nodes: No enlarged retroperitoneal or mesenteric lymph nodes. Vessels: Aorta and inferior vena cava are normal in size. PELVIS: Pelvic Organs: Enlarged prostate gland with mass effect on floor of urinary bladder is again seen and unchanged. Pelvic Nodes: Unremarkable. Miscellaneous: No inguinal hernias are seen. Bones: No suspicious bony lesion. No acute vertebral body compression fracture. IMPRESSION: 1. 7 mm obstructing right proximal ureteral stone unchanged in appearance or position compared to previous study. Persistent moderate right-sided hydronephrosis. Interval development of 6 millimeter hyperdense nodule involving posterior cortex of lower pole right kidney new since prior study and may represent a hemorrhagic cyst. 2. Nonobstructing left renal calculi. No left-sided hydronephrosis or hydroureter. 3. Diffuse bladder wall thickening, no discrete bladder wall mass. Enlarged prostate gland with mass effect on floor of urinary bladder. Finding may represent chronic urinary outlet obstruction. 4. Persistent patchy airspace opacities and ground-glass opacities in bilateral lower lung lujan suggestive of pulmonary infiltrates possibly from atypical viral pneumonia. Dictated by: Dwaine Jenkins M.D. on 03/01/2022 at 16:56 Approved by: Dwaine Jenkins M.D. on 03/01/2022 at 17:05
[2022-03-01] MEDS: INSULIN LISPRO 100 UNIT/ML 3ML VIAL SUBCUT (16:47)
[2022-03-01] MEDS: diphenhydrAMINE 25 MG TABLET PO (21:13)
[2022-03-01] MEDS: KETOROLAC 30 MG/ML VIAL IV (21:14)
[2022-03-01] MEDS: SODIUM CHLORIDE 0.9% FLUSH 10 ML IV (21:14)
[2022-03-02] VITALS (13 sets, daily range): BP systolic 150–189; BP diastolic 78–105; PULSE 74–91; RESP 14–20; TEMP 36.3–37; O2SAT 94–97
[2022-03-02] MEDS: CEFEPIME 2 GM in SODIUM CHLORIDE 0.9% 100 ML IV ×4 (01:00→23:06)
[2022-03-02] MEDS: DOXYCYCLINE 100 MG in SODIUM CHLORIDE 0.9% 100 ML IV ×2 (01:32→11:52)
[2022-03-02] MEDS: ATORVASTATIN 20 MG TABLET 40 MG PO (09:26)
[2022-03-02] MEDS: METOPROLOL IR 50 MG TABLET 25 MG PO ×2 (09:26→21:09)
[2022-03-02] MEDS: polyethylene glycoL 3350 17 GM POWD.PACK PO (09:26)
[2022-03-02] MEDS: SENNOSIDES 8.6 MG TABLET PO ×2 (09:26→21:09)
[2022-03-02] MEDS: lisinopriL 5 MG TABLET 2.5 MG PO (09:27)
[2022-03-02] MEDS: SODIUM CHLORIDE 0.9% FLUSH 10 ML IV ×2 (09:27→21:20)
[2022-03-02] MEDS: TAMSULOSIN 0.4 MG CAPSULE 0.8 MG PO (09:27)
[2022-03-02] MEDS: INSULIN LISPRO 100 UNIT/ML 3ML VIAL SUBCUT ×2 (09:38→11:45)
[2022-03-02] MEDS: ENOXAPARIN 40 MG/0.4 ML SYRINGE SUBCUT (11:13)
--- NOTE | 2022-03-02 15:47 | CM.DPC ---
DCP Cont: It is noted by last P.T. note that patient is ambulating in room, one person assist, no therapy needs, patient was discharged from therapy. Discussed patient during team rounds. Hospitalist is awaiting test to see if patient has TB. Patient also has kidney stone, unclear at this time if this would be surgically removed. P: DCP to continue to follow. Patient should be able to go home when deemed medically stable. Justine Alarcon RN/Set Up Mold Technician
--- NOTE | 2022-03-02 17:46 | PC.NURSE ---
Day shift: Dr Harry made aware that Pt's BP still elevated. No new orders at this time.
--- NOTE | 2022-03-02 18:43 | PM.PN.1 ---
Subjective Subjective Interval history: 76 yo male w/DM2, CAD, HTN, hyperlipidemia, ED, s/p TVR and MVR admitted w/influenza A. 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 Patient reports he is feeling better overall. No significant myalgias or arthralgias. He is expectorating some clear to whitish sputum. He denies any prior history of hemoptysis. No prior history of TB exposures. His is home with influenza. Exam Vital Signs (past 8 hours): - 03/01/22 14:08 03/01/22 14:59 03/01/22 18:18 Temperature 98.7 F Pulse Rate 94 H Respiratory Rate 18 Blood Pressure 171/96 H Pulse Oximetry 96 98 97 Oxygen Delivery Method Room Air Room Air Oxygen Flow Rate 0 03/01/22 20:27 Temperature 97.7 F Pulse Rate 86 Respiratory Rate 18 Blood Pressure 164/95 H Pulse Oximetry 96 Oxygen Delivery Method Oxygen Flow Rate Fraction of Inspired Oxygen 28 SaO2/FiO2 Ratio 342 Oxygen Delivery Method Room Air Oxygen Flow Rate 0 Narrative Exam Narrative: GEN: Alert and oriented x 3, NAD HEENT:NC, Face symmetric CHEST: Respiratory excursions symmetric, inspiratory wheezes/rhonchi bilaterally CV: RRR, no M/R/G ABD: Soft, NT/ND, BT present in all 4 quadrants, no organomegaly or masses EXTR: warm, well perfused, no C/C/E SKIN: warm and dry, no rash NEURO: Alert and oriented x 3, nonfocal Objective Labs Result Diagrams: 02/28/22 06:53 02/28/22 06:53 Labs: Laboratory Results - last 24 hr 02/26/22 02/28/22 03/01/22 07:27 21:45 11:22 Vancomycin Peak 14.9 L Vancomycin Trough 21.1 H* Coccidioides Ab CF Ttr 1:2 H [facility] Medical History Coronary artery disease Coronary artery disease Erectile dysfunction Essential hypertension Heart valve disease Type 2 diabetes mellitus with hyperlipidemia Surgical History Heart valve replaced Family History (Updated 02/26/22 @ 03:50 by MEHRAN Preston) Mother Heart attack Brother Non-traffic vehicular accidental Social History household members: spouse Smoking Status: Never smoker Assessment & Plan Assessment & Plan narrative: 1. Influenza A Patient was influenza positive on 02/25/22. Continuing symptomatic care. 2. LLL consolidation w/L>R small bilat pleural effusions Remains on doxycycline and cefepime. Overall, he is improving. 3. Miliary densities in the lungs seen on CT Sputum AFB x 3 obtained. Smear is negative. Cultures pending. Will send a QuantiFERON gold test as well. Remains in negative pressure isolation. Additional consideration is sarcoidosis. 4. Right ureteropelvic 6 mm stone w/associated moderate hydronephrosis Patient continues on flomax. Pain well controlled. F/u CT done last night which revealed no change in stone position. May need f/u w/urology if stone doesn't pass or pain returns. He is asymptomatic presently. 5. Chronic granulomatous disease Evidence of chronic granulomatous disease seen w/extensive mediastinal and hilar adenopathy. He did have positive Coccidioides antibodies on admission. 6. DM2 Continue controlled carb diet, FSBG. Metformin held. 7. Chronic essential HTN continue lisinopril, metoprolol. He has had moderate blood pressure elevations. Metoprolol was increased to b.i.d. earlier this hospitalization. Will add as needed hydralazine for now. 8. Hyperlipidemia Continue statin therapy. Resolved issues: Sepsis without septic shock, felt to be d/t atypical pneumonia vs influenza A infection Code status Full Prophy? Lovenox 40 and SCDs Disposition: Pending infectious workup for pulmonary findings. Home in likely 1 day. Time Spent With Patient Critical Care time: I spent a total of [] minutes of critical care time on this patient's care today; this time is exclusive of procedural time. Quality VTE Deep Vein Thrombosis/Pulmonary Embolism Present on Admission: No
[2022-03-02] MEDS: diphenhydrAMINE 25 MG TABLET PO (21:09)
[2022-03-02] MEDS: ACETAMINOPHEN 325 MG TABLET 650 MG PO (21:09)
[2022-03-02] MEDS: DOXYCYCLINE HYCLATE 100 MG TABLET PO (21:09)
[2022-03-03] VITALS (10 sets, daily range): BP systolic 139–177; BP diastolic 87–96; PULSE 69–88; RESP 16–19; TEMP 36.6–36.8; O2SAT 96–97
[2022-03-03] MEDS: TAMSULOSIN 0.4 MG CAPSULE 0.8 MG PO (08:02)
[2022-03-03] MEDS: SENNOSIDES 8.6 MG TABLET PO ×2 (08:02→20:34)
[2022-03-03] MEDS: DOXYCYCLINE HYCLATE 100 MG TABLET PO ×2 (08:02→20:34)
[2022-03-03] MEDS: METOPROLOL IR 50 MG TABLET 25 MG PO ×2 (08:02→20:34)
[2022-03-03] MEDS: ATORVASTATIN 20 MG TABLET 40 MG PO (08:02)
[2022-03-03] MEDS: polyethylene glycoL 3350 17 GM POWD.PACK PO (08:02)
[2022-03-03] MEDS: lisinopriL 5 MG TABLET 2.5 MG PO (08:03)
[2022-03-03] MEDS: ENOXAPARIN 40 MG/0.4 ML SYRINGE SUBCUT (08:03)
[2022-03-03] MEDS: CEFEPIME 2 GM in SODIUM CHLORIDE 0.9% 100 ML IV ×3 (08:10→23:19)
[2022-03-03] MEDS: ACETAMINOPHEN 325 MG TABLET 650 MG PO (12:02)
[2022-03-03] MEDS: INSULIN LISPRO 100 UNIT/ML 3ML VIAL SUBCUT (12:03)
[2022-03-03] MEDS: MORPHINE 2 MG/ML INJ IV ×2 (15:02→23:19)
[2022-03-03] MEDS: MORPHINE 4 MG/ML INJ IV ×2 (15:43→18:38)
--- NOTE | 2022-03-03 15:49 | PC.NURSE ---
Day shift: Pt c/o rt kidney and rt flank pain with spasms in that area. Dr Harry made aware. ordered more IV pain medication. Will continue to monitor.
[2022-03-03] MEDS: OXYCODONE IR 5 MG TABLET PO ×2 (16:44→20:40)
--- NOTE | 2022-03-03 17:42 | PM.PN.1 ---
Subjective Subjective Interval history: 76 yo male w/DM2, CAD, HTN, hyperlipidemia, ED, s/p TVR and MVR admitted w/influenza A.? 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 Patient reports he is feeling better overall.? No significant myalgias or arthralgias.? He did have some flank pain earlier this afternoon but after having a shower he notes his pain is relieved. The pain has continued to be in the left flank, it has not traveled around or migrated down the groin. Exam Vital Signs (past 8 hours): - 03/03/22 13:09 03/03/22 13:00 03/03/22 17:10 Temperature 98.1 F Pulse Rate 84 Respiratory Rate 18 Blood Pressure 157/90 H Pulse Oximetry 96 97 97 Oxygen Delivery Method Room Air Room Air Oxygen Flow Rate 0 Fraction of Inspired Oxygen 28 SaO2/FiO2 Ratio 342 Oxygen Delivery Method Room Air Oxygen Flow Rate 0 Narrative Exam Narrative: GEN: Alert and oriented x 3, NAD HEENT:NC, Face symmetric CHEST: Respiratory excursions symmetric, coarse with scattered rhonchi CV: RRR, no M/R/G ABD: Soft, NT/ND, BT present in all 4 quadrants, no organomegaly or masses EXTR: warm, well perfused, no C/C/E SKIN: warm and dry, no rash NEURO: Alert and oriented x 3, nonfocal Objective Labs Result Diagrams: 02/28/22 06:53 02/28/22 06:53 [facility] Medical History Coronary artery disease Coronary artery disease Erectile dysfunction Essential hypertension Heart valve disease Type 2 diabetes mellitus with hyperlipidemia Surgical History Heart valve replaced Family History (Updated 02/26/22 @ 03:50 by MEHRAN Preston) Mother Heart attack Brother Non-traffic vehicular accidental Social History household members: spouse Smoking Status: Never smoker Assessment & Plan Assessment & Plan narrative: 1.? Influenza A Patient was influenza positive on 02/25/22.? Continuing symptomatic care. 2.? LLL consolidation w/L>R small bilat pleural effusions Remains on doxycycline and cefepime.? Overall, he is improving. Cefepime will be complete tomorrow. Doxycycline was initiated on February 25 as likely could be discontinued tomorrow. 3.? Miliary densities in the lungs seen on CT Sputum AFB x 3 obtained.? Smear is negative.? Cultures pending.? QuantiFERON gold sent but tests will not return for approximately 5 days. 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 Will discontinue droplet precautions. 4.? Right ureteropelvic 6 mm stone w/associated moderate hydronephrosis Patient continues on flomax.? Pain well controlled.? F/u CT done on March 01 which revealed no change in stone position.? May need f/u w/urology if stone doesn't pass or pain returns.? He is presently having minimal pain. 5.? Chronic granulomatous disease Evidence of chronic granulomatous disease seen w/extensive mediastinal and hilar adenopathy.? He did have positive Coccidioides antibodies on admission. 6.? DM2 Continue controlled carb diet, FSBG.? Metformin held. 7. Chronic essential HTN continue lisinopril, metoprolol.? He has had moderate blood pressure elevations.? Metoprolol was increased to b.i.d. earlier this hospitalization.? Will add as needed hydralazine for now. 8.? Hyperlipidemia Continue statin therapy. Resolved issues: Sepsis without septic shock, felt to be d/t atypical pneumonia vs influenza A infection ? Code status Full Prophy? Lovenox 40 and SCDs Disposition: Possible discharge later today Time Spent With Patient Critical Care time: I spent a total of [] minutes of critical care time on this patient's care today; this time is exclusive of procedural time. Quality VTE Deep Vein Thrombosis/Pulmonary Embolism Present on Admission: No
[2022-03-03] MEDS: HYDROMORPHONE 0.5 MG INJ IV (20:27)
[2022-03-03] MEDS: ONDANSETRON 4 MG/2 ML INJ IV (20:49)
[2022-03-03] MEDS: SODIUM CHLORIDE 0.9% FLUSH 10 ML IV (23:21)
[2022-03-03] MEDS: KETOROLAC 30 MG/ML VIAL IV (23:44)
[2022-03-04] VITALS (16 sets, daily range): BP systolic 114–177; BP diastolic 70–108; PULSE 70–94; RESP 15–22; TEMP 35.9–37.1; O2SAT 95–97
--- NOTE | 2022-03-04 | DI.RAD.S_ITS ---
PROCEDURE: XR KUB INDICATIONS: Right ureteral calculus TECHNIQUE: One view of the abdomen acquired. COMPARISON: [facility], CT, CT KIDNEY URETER BLADDER (KUB), 03/01/2022, 16:35. FINDINGS: Surgical changes and devices: Remote valvuloplasty, mitral clip, midline sternotomy wires Bowel: Bowel gas pattern is normal. Soft tissues: The right ureteral stone is visualized at the level of the top of L3. By CT, it measures 4 x 5 mm. Visualized solid organ contours appear normal in size. Bones: No suspicious bony lesions. IMPRESSION: Continued presence of right ureteral stone, not significantly changed in location. Dictated by: Law Orozco M.D. on 03/04/2022 at 12:19 Approved by: Lwa Orozco M.D. on 03/04/2022 at 12:22
--- NOTE | 2022-03-04 | DI.RAD.S_ITS ---
PROCEDURE: XR ABDOMEN 1V INDICATIONS: Right sided kidney stone. TECHNIQUE: A single intra-operative image acquired by the Urology service. COMPARISON: None. FINDINGS: A stent projects over the right renal fossa. Suspected adjacent calculus.. IMPRESSION: A stent projects over the right renal fossa. Please see operative note for full details. Dictated by: Miller Devlin M.D. on 03/04/2022 at 18:25 Approved by: Miller Devlin M.D. on 03/04/2022 at 18:26
[2022-03-04] MEDS: MORPHINE 4 MG/ML INJ IV ×5 (02:38→16:07)
[2022-03-04] MEDS: SODIUM CHLORIDE 0.9% FLUSH 10 ML IV ×2 (02:39→09:07)
--- NOTE | 2022-03-04 06:01 | PC.NURSE ---
Pt c/o that his pain has been worsening all night, he states my pain isn't on my back anymore but rather all over my stomach and once you give me the Iv medication the pain goes away. Pt urine has been strained throughout this shift, no particles noted other than some small blood clots. Urine continues to be tea color.
[2022-03-04] MEDS: ONDANSETRON 4 MG/2 ML INJ IV ×3 (06:47→16:07)
[2022-03-04] MEDS: KETOROLAC 30 MG/ML VIAL IV (06:48)
--- NOTE | 2022-03-04 06:56 | PC.NURSE ---
pt continues to be nauseated and increase pain, spoke to Dr. Sosa, pt NPO now for possible surgical procedure.
[2022-03-04 08:42] LABS: Basophils Absolute Auto 0 /uL (0-100); Basophils Percent Auto 0.3 % (0-2); Eosinophils Absolute Auto 0 /uL (0-450); Hemoglobin 11.8 g/dL (13.5-17.5); Lymphocytes Absolute Auto 900 /uL (1100-4500); Monocytes Absolute Auto 600 /uL (0-900); Platelet Count 277 X10^3/uL (150-400)
[2022-03-04 08:43] LABS: Add Manual Diff / Slide Review NO; Eosinophils Percent Auto 0.4 % (2-4); Hematocrit 33.9 % (41-53); Lymphocytes Percent Auto 10.1 % (25-40); Mean Corpuscular HGB Conc 34.9 % (30-36); Mean Corpuscular Hemoglobin 33.1 PG (26-34); Mean Corpuscular Volume 94.7 fL (80-100); Monocytes Percent Auto 6.6 % (3-14); Neutrophils Absolute Auto 7300 /uL (1500-7000); Neutrophils Percent Auto 82.6 % (50-75); Red Blood Cell Count 3.58 X10^6/uL (4.5-5.9); Red Cell Distribution Width 12.9 % (11.6-14.8); White Blood Cell Count 8.8 X10^3/uL (4.5-11.0)
[2022-03-04 08:49] LABS: BUN Creatinine Ratio 17.7 (6-22); Blood Urea Nitrogen 28 mg/dL (9-20); Calcium 8.7 mg/dL (8.4-10.2); Carbon Dioxide 23 mmol/L (22-32); Chloride 104 mmol/L (98-107); Estimated Glomerular Filt Rate 44 mL/min (>60); Glucose 148 mg/dL (80-110); HEMOLYSIS < 15 (0-50); Potassium 4.3 mmol/L (3.4-5.1); Sodium 136 mmol/L (137-145)
[2022-03-04] MEDS: CEFEPIME 2 GM in SODIUM CHLORIDE 0.9% 100 ML IV (09:00)
[2022-03-04] MEDS: lisinopriL 5 MG TABLET 2.5 MG PO (09:04)
[2022-03-04] MEDS: METOCLOPRAMIDE 10 MG/2 ML INJ IV (10:00)
--- NOTE | 2022-03-04 10:28 | P.PN_ITS ---
Subjective Subjective Date Patient Seen: 03/04/22 Interval history: Patient still having right flank pain. Nabeel consulted and will take to OR for stent placement today. Exam Vital Signs (past 8 hours): - 03/04/22 07:26 03/04/22 09:04 Temperature 96.7 F L Pulse Rate 72 72 Respiratory Rate 20 Blood Pressure 175/103 H 175/103 H Pulse Oximetry 95 Oxygen Flow Rate 0 Fraction of Inspired Oxygen 28 SaO2/FiO2 Ratio 342 Oxygen Delivery Method Room Air Oxygen Flow Rate 0 Narrative Exam Narrative: GEN: Alert and oriented x 3, mod distress HEENT:NC, Face symmetric CHEST: Respiratory excursions symmetric, coarse with scattered rhonchi CV: RRR, no M/R/G ABD: Soft, NT/ND, BT present in all 4 quadrants, no organomegaly or masses EXTR: warm, well perfused, no C/C/E SKIN: warm and dry, no rash NEURO: Alert and oriented x 3, nonfocal Objective Labs Result Diagrams: 03/04/22 08:08 03/04/22 08:08 Labs: Laboratory Results - last 24 hr 03/04/22 03/04/22 08:08 08:08 WBC 8.8 RBC 3.58 L Hgb 11.8 L Hct 33.9 L MCV 94.7 MCH 33.1 MCHC 34.9 RDW 12.9 Plt Count 277 Neut % (Auto) 82.6 H Lymph % (Auto) 10.1 L [place] % (Auto) 6.6 Eos % (Auto) 0.4 L Baso % (Auto) 0.3 Neut # (Auto) 7300 H Lymph # (Auto) 900 L [place] # (Auto) 600 Eos # (Auto) 0 Baso # (Auto) 0 Sodium 136 L Potassium 4.3 Chloride 104 Carbon Dioxide 23 BUN 28 H Creatinine 1.58 H Estimated GFR 44 L BUN/Creatinine Ratio 17.7 Glucose 148 H Calcium 8.7 PFSH Medical History Coronary artery disease Coronary artery disease Erectile dysfunction Essential hypertension Heart valve disease Type 2 diabetes mellitus with hyperlipidemia Surgical History Heart valve replaced Family History Mother Heart attack Brother Non-traffic vehicular accidental Social History household members: spouse Smoking Status: Never smoker Assessment & Plan Assessment & Plan narrative: 1.? Influenza A Patient was influenza positive on 02/25/22.? Continuing symptomatic care. 2.? LLL consolidation w/L>R small bilat pleural effusions Completed course of doxycycline and cefepime.? Overall, he is improving. 3.? Miliary densities in the lungs seen on CT Sputum AFB x 3 obtained.? Smear is negative.? Cultures pending.? QuantiFERON gold sent but tests will not return for approximately 5 days. 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 Will discontinue droplet precautions. 4.? Right ureteropelvic 6 mm stone w/associated moderate hydronephrosis Patient continues on flomax.? Pain well controlled.? F/u CT done on March 01 which revealed no change in stone position.? Dr. Lees placed stent on 03/04 with improvement in pain. 5.? Chronic granulomatous disease Evidence of chronic granulomatous disease seen w/extensive mediastinal and hilar adenopathy.? He did have positive Coccidioides antibodies on admission. 6.? DM2 Continue controlled carb diet, FSBG.? Metformin held. 7. Chronic essential HTN continue lisinopril, metoprolol.? He has had moderate blood pressure el evations.? Metoprolol was increased to b.i.d. earlier this hospitalization.? Will add as needed hydralazine for now. 8.? Hyperlipidemia Continue statin therapy. Resolved issues: Sepsis without septic shock, felt to be d/t atypical pneumonia vs influenza A infection ? Code status Full Prophy? Lovenox 40 and SCDs Disposition: Possible discharge home on 03/05. Time Spent With Patient Critical Care time: I spent a total of [] minutes of critical care time on this patient's care today; this time is exclusive of procedural time. Quality VTE Deep Vein Thrombosis/Pulmonary Embolism Present on Admission: No
[2022-03-04 11:29] LABS: COVID19 -Nasal RAPID Negative (Negative)
--- NOTE | 2022-03-04 13:18 | PM.CN ---
History of Present Illness Consult details Date Patient Seen: 03/04/22 Time Patient Seen: 11:15 Chief complaint: urinating blood t-4/ weak Reason for consult: Obstructing 7 mm right proximal ureteral calculus. Requesting provider: Jareth Echols Narrative: Primo is a 76-year-old gentleman admitted for evaluation, and management of multitude of constitutional symptoms, and upper respiratory symptoms for previous 5 days. He was subsequently diagnosed with the flu. Approximately 3-4 days ago he began complaining of severe right flank and upper abdominal pain. CT KUB 03/01/2022, identified an obstructing 7 mm right proximal ureteral calculus. Patient remained in-house until staff urologist in call coverage was available today. Urology consultation requested. The patient reports having been told he had of stone many [facility] at [facility] but was told ?it will never bother you. He thinks that he coughs so violently the previous few days that he dislodged the stone. Meds Home Medications and Allergies Home Medications Medication Instructions Recorded Confirmed Type aspirin 81 mg capsule 81 mg PO DAILY 02/25/22 02/25/22 History atorvastatin 40 mg tablet 40 mg PO DAILY 02/25/22 02/25/22 History folic acid 1 mg tablet 1 mg PO DAILY 02/25/22 02/25/22 History lisinopril 2.5 mg tablet 2.5 mg PO DAILY 02/25/22 02/25/22 History mecobalamin (vitamin B12) 1,000 1,000 mcg PO DAILY 02/25/22 02/25/22 History mcg chewable tablet (B12 Active) metformin 500 mg tablet 500 mg PO DAILY 02/25/22 02/25/22 History metoprolol tartrate 50 mg tablet 25 mg PO DAILY 02/25/22 02/25/22 History Allergies Allergy/AdvReac Type Severity Reaction Status Date / Time No Known Drug Allergies Allergy Verified 02/25/22 11:31 Review of Systems Review of Systems ROS: Yes All systems reviewed with the patient and are negative except as otherwise documented Exam Vital Signs (past 8 hours): - 03/04/22 07:26 03/04/22 09:04 03/04/22 11:15 Temperature 96.7 F L 96.8 F L Pulse Rate 72 72 70 Respiratory Rate 20 20 Blood Pressure 175/103 H 175/103 H 143/83 H Pulse Oximetry 95 95 Oxygen Delivery Method Oxygen Flow Rate 0 0 03/04/22 09:00 Temperature Pulse Rate Respiratory Rate Blood Pressure Pulse Oximetry 96 Oxygen Delivery Method Room Air Oxygen Flow Rate Fraction of Inspired Oxygen 28 SaO2/FiO2 Ratio 342 Oxygen Delivery Method Room Air Oxygen Flow Rate 0 Narrative Exam Narrative: He is a well-developed, thin elderly male appearing older than his stated age. Head/neck-sclera clear and pupils are round and equal. No visible evidence of adenopathy or JVD. Chest-equal and unlabored expansion bilaterally. Heart-normal sinus rhythm. Objective Labs Result Diagrams: 03/04/22 08:08 03/04/22 08:08 Labs: Laboratory Results - last 24 hr 03/04/22 03/04/22 03/04/22 08:08 08:08 10:30 WBC 8.8 RBC 3.58 L Hgb 11.8 L Hct 33.9 L MCV 94.7 MCH 33.1 MCHC 34.9 RDW 12.9 Plt Count 277 Neut % (Auto) 82.6 H Lymph % (Auto) 10.1 L [place] % (Auto) 6.6 Eos % (Auto) 0.4 L Baso % (Auto) 0.3 Neut # (Auto) 7300 H Lymph # (Auto) 900 L [place] # (Auto) 600 Eos # (Auto) 0 Baso # (Auto) 0 Sodium 136 L Potassium 4.3 Chloride 104 Carbon Dioxide 23 BUN 28 H Creatinine 1.58 H Estimated GFR 44 L BUN/Creatinine Ratio 17.7 Glucose 148 H Calcium 8.7 SARS-CoV-2 (PCR) Negative [facility] Medical History Coronary artery disease Coronary artery disease Erectile dysfunction Essential hypertension Heart valve disease Type 2 diabetes mellitus with hyperlipidemia Surgical History Heart valve replaced Family History Mother Heart attack Brother Non-traffic vehicular accidental Social History household members: spouse Tobacco & Substance Use Smoking Status: Never smoker Assessment & Plan Assessment & Plan narrative: Assessment: 1. Obstructing 7 mm right proximal ureteral calculus. 2. Intractable right renal colic. Plan: 1. Discussion and informed consent obtained for CYSTOSCOPY/PLACEMENT RIGHT URETERAL STENT. 2. The patient will require return to OR for definitive treatment by laser or shockwave lithotripsy. 3. Obtain KUB film evaluate radiopaque versus radiolucent stone. Reviewed findings, discussed impression, and options. Explained rationale and indications for relief of right renal structure length ureteral stent. Explained the common side effects, possible complications, perioperative limitations/restrictions, and reasonable expectations of outcomes and recovery following cystoscopy and placement right ureteral stent. He had no further specific questions indicates a desire to proceed. Time Spent With Patient Critical Care time: I spent a total of [] minutes of critical care time on this patient's care today; this time is exclusive of procedural time.
[2022-03-04] MEDS: HYDROMORPHONE 0.5 MG INJ IV (14:46)
[2022-03-04] MEDS: LACTATED RINGERS 1,000 ML 21 ML IV (14:50)
--- NOTE | 2022-03-04 16:35 | PM.PREOP ---
Pre-operative Note COVID-19 Criteria for continued procedure: Expected advancement of disease process, Possibility delay results in more complex future surgery or treatment, Continuing or worsening of significant or severe pain, Deterioration of the patient's condition or overall health, Delay expected to result in less-positive ultimate med/surg outcome and Non-surgical alternatives not available or appropriate per current SOC Interval Note History & Physical reviewed/Exam performed by Physician: Yes Changes to H&P: No
--- NOTE | 2022-03-04 17:14 | SUR.OPER ---
Lithotomy on padded OR bed, head on pillow, arms secured on padded arm boards at <90 degrees abduction. Legs secured in padded yellow fins stirrups.
[2022-03-04] MEDS: CEFAZOLIN 2 GM/100 ML PREMIX 100 ML IV (17:30)
--- NOTE | 2022-03-04 17:40 | PM.OP.1 ---
Operative Date/Time/Diagnoses Date of procedure: 03/04/22 Time of procedure: 17:40 Pre-op diagnosis: 1. Obstructing 7 mm right proximal ureteral calculus. 2. Intractable right renal colic. Post-op diagnosis: same Procedure & Clinicians Procedure: 1. CYSTOSCOPY/RIGHT PROXIMAL URETERAL STONE MANIPULATION WITHOUT REMOVAL. 2. CYSTOSCOPY/PLACEMENT RIGHT URETERAL STENT (6 Iranian by 22-32 cm multi-length). Same procedure as scheduled: Yes Indications: 1. Obstructing 7 mm right proximal ureteral calculus. 2. Intractable right renal colic. Surgeon: Jarad Lees Click Yes if Unassisted: Yes Anesthesia Type: General Operative Notes Findings: 1. Urethra-normal caliber without annular stricture or lesion. 2. External sphincter-coapted with normal overlying urothelium. 3. Prostate-4.5+ cm length with very elevated median bar and moderately obstructing lateral lobes. 4. Bladder-1 to 2+ trabeculation. Normal ureteral orifices bilaterally. Obstructive efflux observed after stone manipulation and retrograde repositioning within the central renal collecting system. Closure Type: not applicable Specimen(s): none sent Applied: other (Six Iranian by 22-32 cm multi-length stent.) Estimated Blood Loss (mL): 0 Complications: none Post-operative Condition: stable Disposition: PACU Plan for aftercare: Acute care-hospitalist service.
--- NOTE | 2022-03-04 17:51 | PC.NURSE ---
Pt is A&OX3, SBP elevated to 170's this shift when patient in pain. Pain with abdominal cramps severe 10 controlled well this shift with PRN morhpine IV 4mg, and 05mg dilaudid IV. Pt also complains of severe nausea, and is given zofran PRN alternating with reglan PRN with good effect. He voids twice dark yellow urine, which is strained with a filter no stone found. Pt is kept NPO for plan to have stents placed today. He is taken via bed at 1600 to preop by PREOP RN.
[2022-03-04] MEDS: LACTATED RINGERS 1,000 ML 125 ML IV (19:35)
[2022-03-05] MEDS: LACTATED RINGERS 1,000 ML 125 ML IV (02:21)
[2022-03-05 05:44] VITALS: BP 164/98; PULSE 106; RESP 20; TEMP 36.1; O2SAT 96
[2022-03-05] MEDS: MORPHINE 4 MG/ML INJ IV (06:22)
[2022-03-05 07:05] LABS: Add Manual Diff / Slide Review NO; Basophils Absolute Auto 0 /uL (0-100); Basophils Percent Auto 0.3 % (0-2); Eosinophils Absolute Auto 100 /uL (0-450); Eosinophils Percent Auto 1.5 % (2-4); Hemoglobin 12.4 g/dL (13.5-17.5); Lymphocytes Absolute Auto 1200 /uL (1100-4500); Lymphocytes Percent Auto 12.5 % (25-40); Mean Corpuscular HGB Conc 34.4 % (30-36); Mean Corpuscular Hemoglobin 33.1 PG (26-34); Mean Corpuscular Volume 96.1 fL (80-100); Monocytes Absolute Auto 700 /uL (0-900); Monocytes Percent Auto 7.5 % (3-14); Neutrophils Absolute Auto 7500 /uL (1500-7000); Neutrophils Percent Auto 78.2 % (50-75); Platelet Count 292 X10^3/uL (150-400); Red Blood Cell Count 3.75 X10^6/uL (4.5-5.9); Red Cell Distribution Width 13.4 % (11.6-14.8); White Blood Cell Count 9.6 X10^3/uL (4.5-11.0)
[2022-03-05 07:08] LABS: BUN Creatinine Ratio 19.5 (6-22); Blood Urea Nitrogen 23 mg/dL (9-20); Carbon Dioxide 25 mmol/L (22-32); Chloride 103 mmol/L (98-107); Estimated Glomerular Filt Rate > 60 mL/min (>60); Glucose 129 mg/dL (80-110); HEMOLYSIS < 15 (0-50); Potassium 4.1 mmol/L (3.4-5.1); Sodium 138 mmol/L (137-145)
--- NOTE | 2022-03-05 07:43 | P.PN_ITS ---
Subjective Subjective Date Patient Seen: 03/05/22 Time Patient Seen: 07:25 Interval history: The patient is postoperative morning 1 status post cystoscopy and placement right ureteral stent for obstructing 7 mm right proximal ureteral calculus. Overall, he has had a smooth an excellent recovery with the exception of inability to empty bladder. He was straight cath in PACU before transfer to floor. He is voiding 100 cc volumes. Most recent bladder scan was 675 cc. The patient voices reluctance prepared and catheterization. Explained rationale and indications to maintain bladder emptying and avoid over-distention and related risks of bladder injury. Exam Vital Signs (past 8 hours): - 03/05/22 05:44 Temperature 97.0 F L Pulse Rate 106 H Respiratory Rate 20 Blood Pressure 164/98 H Pulse Oximetry 96 Oxygen Flow Rate 0 Fraction of Inspired Oxygen 28 SaO2/FiO2 Ratio 342 Oxygen Delivery Method Room Air Oxygen Flow Rate 0 Narrative Exam Narrative: He is awake and lying in bed and in no distress. Objective Labs Result Diagrams: 03/05/22 05:45 03/05/22 05:45 Labs: Laboratory Results - last 24 hr 03/04/22 03/04/22 03/04/22 08:08 08:08 10:30 WBC 8.8 RBC 3.58 L Hgb 11.8 L Hct 33.9 L MCV 94.7 MCH 33.1 MCHC 34.9 RDW 12.9 Plt Count 277 Neut % (Auto) 82.6 H Lymph % (Auto) 10.1 L [place] % (Auto) 6.6 Eos % (Auto) 0.4 L Baso % (Auto) 0.3 Neut # (Auto) 7300 H Lymph # (Auto) 900 L [place] # (Auto) 600 Eos # (Auto) 0 Baso # (Auto) 0 Sodium 136 L Potassium 4.3 Chloride 104 Carbon Dioxide 23 BUN 28 H Creatinine 1.58 H Estimated GFR 44 L BUN/Creatinine Ratio 17.7 Glucose 148 H Calcium 8.7 SARS-CoV-2 (PCR) Negative 03/05/22 03/05/22 05:45 05:45 WBC 9.6 RBC 3.75 L Hgb 12.4 L Hct 36.0 L MCV 96.1 MCH 33.1 MCHC 34.4 RDW 13.4 Plt Count 292 Neut % (Auto) 78.2 H Lymph % (Auto) 12.5 L [place] % (Auto) 7.5 Eos % (Auto) 1.5 L Baso % (Auto) 0.3 Neut # (Auto) 7500 H Lymph # (Auto) 1200 [place] # (Auto) 700 Eos # (Auto) 100 Baso # (Auto) 0 Sodium 138 Potassium 4.1 Chloride 103 Carbon Dioxide 25 BUN 23 H Creatinine 1.18 Estimated GFR > 60 BUN/Creatinine Ratio 19.5 Glucose 129 H Calcium 9.0 SARS-CoV-2 (PCR) PFSH Medical History Coronary artery disease Coronary artery disease Erectile dysfunction Essential hypertension Heart valve disease Type 2 diabetes mellitus with hyperlipidemia Surgical History Heart valve replaced Family History Mother Heart attack Brother Non-traffic vehicular accidental Social History household members: spouse Smoking Status: Never smoker Assessment & Plan Assessment & Plan narrative: Assessment: 1. Stable postop day 1 status post cystoscopy and placement right ureteral stent for obstructing right proximal ureteral calculus and severe right renal colic. 2. Incomplete bladder emptying. Plan: 1. Bladder scan and straight cath for residuals greater than 200 as ordered. 2. Rx tamsulosin 0.4 mg now and then 0.4 mg at HS beginning this evening. 3. Although catheterizations status is currently pending prior to discharge, patient should have follow-up visit in the Urology Clinic in 10-14 days. Time Spent With Patient Critical Care time: I spent a total of [] minutes of critical care time on this patient's care today; this time is exclusive of procedural time. Quality VTE Deep Vein Thrombosis/Pulmonary Embolism Present on Admission: No
--- NOTE | 2022-03-05 08:06 | PM.DS.1 ---
History of Present Illness History of Present Illness Date Patient Seen: 03/05/22 Time Patient Seen: 20:50 Chief complaint: urinating blood t-4/ weak Narrative: Primo Farnsworth is a 76-year-old male with a history of hyperlipidemia, CAD, hypertension, diabetes type 2, ED, status post tricuspid and mitral valve replacement who presented to the ED complaining of 6 days of fever, chills, cough, chest pain with inspiration, shortness of breath, diarrhea, and right-sided flank pain with inspiration. Patient also notes that he has been exposed to multiple family members who have tested positive for the flu. Patient was febrile 100.2, tachycardic heart rate 103, tachypneic RR 24, and 90% on room air BP was labile. 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 Time admit temp 97? point BP 160/85, HR 90, R 24, O2 saturation 94% on 2 L nasal cannula. Patient has a small elevated white count 13.8 with a left shift neutrophils 11,800 mono 1000. procalcitonin, lactate, flu B, COVID, RSV, all normal. Patient's BNP 945, dimer 1462, chest x-ray demonstrates mild atypical pneumonia. CTA is negative for PE, but presented with findings consistent with chronic granulomatous disease extensive symmetric mediastinal and hilar adenopathy, diffuse bronchial wall thickening and peribronchial thickening, and innumerable ill-defined miliary densities in the lungs, some of which cholecystic to create more confluent areas of airspace consolidation.Findings are suggestive of diffuse inflammatory or infectious process like pulmonary tuberculosis or sarcoidosis. Patient is admitted for sepsis without shock, atypical pneumonia, and influenza A. ? Discharge Providers Provider Date of admission: 02/25/22 17:31 Discharge Date: 03/05/22 Primary care physician: León Kerr Rai, DO Consults: 02/25/22 20:37 Consult to Dietitian, Adult Routine Comment: Reason For Exam: BMI 24,4 02/25/22 20:38 Consult to Occupational Therapy Evaluate & Treat Comment: Physician Instructions: Evaluate and treat Consult to Physical Therapy Evaluate & Treat Comment: Physician Instructions: Evaluate and Treat 02/28/22 15:21 Consult to Urology Routine Comment: Consulting Provider: Blade Dyson Reason for consultation: right kidney stone Discharge provider: Jareth Echols DO Summary Hospital Course Discharge Diagnosis: 1.? Influenza A Patient was influenza positive on 02/25/22.? Continuing symptomatic care. 2.? LLL consolidation w/L>R small bilat pleural effusions Completed course of doxycycline and cefepime.? Overall, he is improving. 3.? Miliary densities in the lungs seen on CT Sputum AFB x 3 obtained and negative.? Smear is negative.? Sputum cultures negative.? QuantiFERON gold negative.? I reviewed case as well as CT images with pulmonology who felt this represents influenza a infection rather than miliary TB, particularly in the setting of negative sputum AFBs.? Will discontinue droplet precautions. 4.? Right ureteropelvic 6 mm stone w/associated moderate hydronephrosis Patient continues on flomax.? Pain well controlled.? F/u CT done on March 01 which revealed no change in stone position.? Dr. Lees placed stent on 03/04 with improvement in pain. 5.? Chronic granulomatous disease Evidence of chronic granulomatous disease seen w/extensive mediastinal and hilar adenopathy.? He did have positive Coccidioides antibodies on admission. 6.? DM2 Continue controlled carb diet, FSBG.? Metformin held. 7. Chronic essential HTN continue lisinopril, metoprolol.? He has had moderate blood pressure elevations.? Metoprolol was increased to b.i.d. earlier this hospitalization.? Will add as needed hydralazine for now. 8.? Hyperlipidemia Continue statin therapy. Hospital Course: Admitted for dyspnea and found to be flu positive. CT chest showed scattered miliary densities concerning for TB so patient was placed on quarantine and AFB sputum sent along with QuantiFERON gold. These came back negative and patient was taken off isolation. Hospitalist spoke with corporate training manager who looked at the scans and felt like the lesions were secondary to flu. While admitted patient had acute onset severe right flank pain and a CT scan showed a 7 mm stone at ureteropelvic junction with moderate hydronephrosis. Urology consulted who initially did not want to take for stent placement due to TB rule out, however he continued to have pain so Dr. Lees consulted took to OR and placed stent with improvement in patient's pain. Postop he had trouble urinating and was retaining urine so a Guerra was placed and he was discharged with this. He will follow-up [facility] for lithotripsy and stent removal. Time Spent with Patient Time spent: Greater than 30 minutes Exam Vital Signs (past 8 hours): - 03/05/22 05:44 Temperature 97.0 F L Pulse Rate 106 H Respiratory Rate 20 Blood Pressure 164/98 H Pulse Oximetry 96 Oxygen Flow Rate 0 Fraction of Inspired Oxygen 28 SaO2/FiO2 Ratio 342 Oxygen Delivery Method Room Air Oxygen Flow Rate 0 Narrative Exam Narrative: GEN: Alert and oriented x 3, mod distress HEENT:NC, Face symmetric CHEST: Respiratory excursions symmetric, coarse with scattered rhonchi CV: RRR, no M/R/G ABD: Soft, NT/ND, BT present in all 4 quadrants, no organomegaly or masses EXTR: warm, well perfused, no C/C/E SKIN: warm and dry, no rash NEURO: Alert and oriented x 3, nonfocal Objective Labs Result Diagrams: 03/05/22 05:45 03/05/22 05:45 Labs: Laboratory Results - last 24 hr 03/04/22 03/04/22 03/04/22 08:08 08:08 10:30 WBC 8.8 RBC 3.58 L Hgb 11.8 L Hct 33.9 L MCV 94.7 MCH 33.1 MCHC 34.9 RDW 12.9 Plt Count 277 Neut % (Auto) 82.6 H Lymph % (Auto) 10.1 L [place] % (Auto) 6.6 Eos % (Auto) 0.4 L Baso % (Auto) 0.3 Neut # (Auto) 7300 H Lymph # (Auto) 900 L [place] # (Auto) 600 Eos # (Auto) 0 Baso # (Auto) 0 Sodium 136 L Potassium 4.3 Chloride 104 Carbon Dioxide 23 BUN 28 H Creatinine 1.58 H Estimated GFR 44 L BUN/Creatinine Ratio 17.7 Glucose 148 H Calcium 8.7 SARS-CoV-2 (PCR) Negative 03/05/22 03/05/22 05:45 05:45 WBC 9.6 RBC 3.75 L Hgb 12.4 L Hct 36.0 L MCV 96.1 MCH 33.1 MCHC 34.4 RDW 13.4 Plt Count 292 Neut % (Auto) 78.2 H Lymph % (Auto) 12.5 L [place] % (Auto) 7.5 Eos % (Auto) 1.5 L Baso % (Auto) 0.3 Neut # (Auto) 7500 H Lymph # (Auto) 1200 [place] # (Auto) 700 Eos # (Auto) 100 Baso # (Auto) 0 Sodium 138 Potassium 4.1 Chloride 103 Carbon Dioxide 25 BUN 23 H Creatinine 1.18 Estimated GFR > 60 BUN/Creatinine Ratio 19.5 Glucose 129 H Calcium 9.0 SARS-CoV-2 (PCR) [facility] Medical History Coronary artery disease Coronary artery disease Erectile dysfunction Essential hypertension Heart valve disease Type 2 diabetes mellitus with hyperlipidemia Surgical History Heart valve replaced Family History Mother Heart attack Brother Non-traffic vehicular accidental Social History household members: spouse Smoking Status: Never smoker Discharge Plan Discharge Plan Patient Disposition: Home Provider Discharge Comment: You had Influenza A. You DO NOT have TB-all testing was negative. The abnormalities on your CT were most likely due to influenza and are improving. You should follow-up with your PCP for repeat CT scan in 3-4 weeks to ensure that the abnormal appearance on your imaging resolves. With regard to kidney stones: You had a stent placed to unclog the stone which was backing up urine. You'll need to have the stone blasted and stent removed with urology at a future time. Drink plenty of fluids. Avoid carbonated beverages Add lemon to your water Avoid oxalate rich foods (beets, chocolate, nuts, spinach, rhubarb, tea) Discharge orders & Medications Prescriptions: Continued atorvastatin 40 mg Tablet 40 mg PO DAILY metformin 500 mg Tablet 500 mg PO DAILY metoprolol tartrate 50 mg Tablet 25 mg PO DAILY folic acid 1 mg Tablet 1 mg PO DAILY lisinopril 2.5 mg Tablet 2.5 mg PO DAILY mecobalamin (vitamin B12) [B12 Active] 1,000 mcg Tablet,Chewable 1,000 mcg PO DAILY aspirin 81 mg Capsule 81 mg PO DAILY No Action tamsulosin 0.4 mg capsule 0.4 mg PO BEDTIME Qty: 90 3RF Follow up/Referrals: León De Leon DO [Primary Care Provider] - Diet/Activity/Treatments Diet: Diet as Tolerated Activity: As tolerated Oxygen: N/A Visit Report/Discharge Packet Instructions: DI for Kidney Stones, DI for Influenza -- Adult Discharge Data Primary Care Provider: León De Leon Quality VTE Deep Vein Thrombosis/Pulmonary Embolism Present on Admission: No
[2022-03-05] MEDS: TAMSULOSIN 0.4 MG CAPSULE PO (09:10)
[2022-03-05] MEDS: FOLIC ACID 1 MG TABLET PO (09:11)
[2022-03-05] MEDS: METFORMIN HCL 500 MG TABLET PO (09:11)
[2022-03-05 09:23] VITALS: BP 176/99; PULSE 101; RESP 19; TEMP 36.9; O2SAT 96
[2022-03-05] MEDS: CYANOCOBALAMIN (VITAMIN B-12) 100 MCG TABLET 1000 MCG PO (10:10)
[2022-03-05 13:09] LABS: QuantiFERON Mitogen Value >10.00 IU/mL (.); QuantiFERON Nil Value 0.01 IU/mL (.); QuantiFERON TB Gold Plus Negative (Negative); QuantiFERON TB1 Ag Value 0.07 IU/mL (.); QuantiFERON TB2 Ag Value 0.04 IU/mL (.)
--- NOTE | 2022-03-05 14:18 | PC.NURSE ---
Pt is A&Ox3. VSS, afebrile on RA. He reports pain more controlled this a.m. He is voiding with hematuria frequently but small amounts. Bladder scan results>500 this a.m. MD Lees at bedside evaluating patient explaining discharge plan. MD Echols at bedside this a.m. Patient still with large PVR. Kc Catheter placed for discharge home. Instantly 1000cc of hematuria filled catheter bag. Pt with good appetite and ambulating independently. He is medically cleared for discharge home with follow up with urology. He is educated about catheter care and leg bag/nigh bag. He verbalizes understanding of medications, activity, kc care and follow up appointments. He is escorted via w/ch for discharge home to private vehicle with his with all of his belongings.
== END 2022-03-05 13:00 | disposition home or self-care (01) | DRG 853 ==
LOC: ED 17:31 → AC 17:32
PROVIDERS: Emergency Medicine; Family Medicine; Nurse Practitioner Family; Specialist; Admitting Provider Student in an Organized Health Care Education/Training Program; Emergency Provider Student in an Organized Health Care Education/Training Program; PCP Family Medicine; Referring Provider Student in an Organized Health Care Education/Training Program; Visit Provider Student in an Organized Health Care Education/Training Program
PROC: 0T968ZZ Drainage of Right Ureter, Via Natural or Artificial Opening Endoscopic (ICD-10-PCS; principal; 2022-03-04 16:15)
DX: A41.9 Sepsis, unspecified organism (principal); J18.9 Pneumonia, unspecified organism; N13.2 Hydronephrosis with renal and ureteral calculous obstruction; J10.1 Influenza due to other identified influenza virus with other respiratory manifestations; I10 Essential (primary) hypertension; E11.9 Type 2 diabetes mellitus without complications; E78.5 Hyperlipidemia, unspecified; D71 Functional disorders of polymorphonuclear neutrophils; Z20.822 Contact with and (suspected) exposure to COVID-19; Z95.2 Presence of prosthetic heart valve; Z79.84 Long term (current) use of oral hypoglycemic drugs
CPT/HCPCS: 0241U; 36415; 52330; 52332; 71045; 71275; 74018; 74174; 74176; 76000; 80048; 80053; 80202; 81003; 81015; 82164; 82550; 82962; 83036; 83605; 83690; 83735; 83880; 84145; 84484; 85025; 85379; 85610; 85651; 85730; 86140; 86480; 86635; 87040; 87086; 87116; 87206; 87449; 87635; 93005; 93010; 94640; 94760; 96365; 96367; 96375; 99232; 99285; C9803; J0690; J0692; J1170; J1650; J1815; J1885; J1940; J2270; J2405; J2543; J2704; J2765; J3010; Q9967

== ENCOUNTER → 2022-03-12 09:03 | Outpatient (CLI) | payer OTHER, SELFPAY ==
[2022-02-25 20:06] VITALS: BMI 24.4
--- NOTE | 2022-03-12 09:04 | DI.RAD.S_ITS ---
PROCEDURE: XR KUB INDICATIONS: Kidney Stones TECHNIQUE: One view of the abdomen acquired. COMPARISON: [facility], CR, XR KUB, 03/04/2022, 11:28. FINDINGS: Surgical changes and devices: Right-sided ureteral stent is seen and is in satisfactory position. Bowel: Bowel gas pattern is nonobstructive. No gross pneumoperitoneum. Large amount of fecal matter throughout the colon is seen. Soft tissues: 6 mm calcification is seen projecting in lower pole right kidney. Previously described small calcification in the expected location of right proximal to mid ureter is no longer seen. Small phleboliths are noted in lower pelvis. Visualized solid organ contours appear normal in size. Bones: No suspicious bony lesions. IMPRESSION: Right-sided ureteral stent in place. Suggestion of a lower pole right renal stone. Previously noted possible right ureteral stone is not definitively seen on the current study. Moderate constipation. No gross free air. Dictated by: Dwaine Jenkins M.D. on 03/12/2022 at 10:21 Approved by: Dwaine Jenkins M.D. on 03/12/2022 at 10:22
== END ==
PROVIDERS: PCP Family Medicine; Referring Provider Specialist; Visit Provider Specialist
DX: N20.1 Calculus of ureter (principal); K59.00 Constipation, unspecified; Z96.0 Presence of urogenital implants
CPT/HCPCS: 74018

== ENCOUNTER 2022-05-03 08:32 | Day surgery (SDC) | payer OTHER, SELFPAY ==
[2022-02-25 20:06] VITALS: BMI 24.4
[2022-05-01 10:09] VITALS: BMI 25.1
--- NOTE | 2022-05-03 | DI.RAD.S_ITS ---
PROCEDURE: XR KUB INDICATIONS: Right renal calculus TECHNIQUE: One view of the abdomen acquired. COMPARISON: [facility], CR, XR KUB, 03/12/2022, 9:04. [facility], CR, XR KUB, 03/04/2022, 11:28. FINDINGS: Surgical changes and devices: A right ureteral stent is in similar position. Bowel: Bowel gas pattern is normal. Soft tissues: Suspected pelvic phleboliths. Again seen is a right lower pole suspected renal calculus measuring about 6 mm. Evaluation is somewhat limited by overlapping bowel gas. Bones: Scattered degenerative changes. IMPRESSION: Similar positioning right ureteral stent calcified right lower pole 6 mm calculus. Pelvic calcifications are probably phleboliths. Dictated by: Miller Devlin M.D. on 05/03/2022 at 9:04 Approved by: Miller Devlin M.D. on 05/03/2022 at 9:07
[2022-05-03] MEDS: LACTATED RINGERS 1,000 ML 21 ML IV (09:36)
[2022-05-03 09:52] VITALS: BP 169/94; PULSE 74; RESP 16; TEMP 36.2; O2SAT 98; BMI 25.1
--- NOTE | 2022-05-03 09:53 | PM.PREOP ---
Pre-operative Note Interval Note History & Physical reviewed/Exam performed by Physician: Yes Changes to H&P: No
[2022-05-03] MEDS: CEFAZOLIN 2 GM/100 ML PREMIX 100 ML IV (10:36)
--- NOTE | 2022-05-03 10:38 | SUR.OPER ---
Supine on ESWL table, head on pillow, arms padded and tucked at sides, legs uncrossed. Pt positioned per direction and supervision of Dr Lees.
--- NOTE | 2022-05-03 11:17 | P.OP_ITS ---
Operative Date/Time/Diagnoses Date of procedure: 05/03/22 Time of procedure: 11:17 Pre-op diagnosis: 1. 7 mm right renal calculus. 2. History of right renal colic. 3. Retained right ureteral stent. Procedure & Clinicians Procedure: 1. Right extracorporeal shockwave lithotripsy (maximal power level 7.5 x 2000 shocks). 2. Cystoscopy/right ureteral stent removal. Same procedure as scheduled: Yes Indications: 1. 7 mm right renal calculus. 2. History of right renal colic. 3. Retained right ureteral stent. Surgeon: Jarad Lees Click Yes if Unassisted: Yes Anesthesia Type: General Operative Notes Findings: Index calculus unchanged in position compared to preoperative imaging. Closure Type: not applicable Specimen(s): none sent Estimated Blood Loss (mL): 0 Blood products transfused: none Procedure in detail: The patient was positioned in supine was administered general anesthesia. The above-described calculus was then localized in the X, Y, and Z plane. Lithotripsy was then commenced at minimal power level for 200 shocks. A 2 minute pause was then conducted. Lithotripsy was then resumed and power level was gradually increased to 7.5. The stone and its fragments were relocalized as needed periodically throughout the treatment. At 2000 shocks there was excellent evidence of stone comminution. The patient was then repositioned into semi lithotomy. Abdomen, genitalia, and groin then prepped and draped in sterile fashion. The 22 Fijian panendoscope was then passed the lower urinary tract. An alligator grasper was then used to engage the distal end of the right ureteral stent. Bladder contents were drained. The scope and the engaged right ureteral stent were then withdrawn incompletely removed from the urinary tract. The patient was then repositioned in supine, was awakened, was transferred to [facility] in stable condition. Complications: none Post-operative Disposition: PACU Plan for aftercare: Discharge home.
[2022-05-03 11:28] VITALS: BP 150/89; PULSE 70; RESP 19; TEMP 36.4; O2SAT 100
[2022-05-03 11:31] VITALS: BP 147/87; PULSE 72; RESP 14; O2SAT 100
[2022-05-03] MEDS: FUROSEMIDE 20 MG/2 ML VIAL IV (11:35)
[2022-05-03 11:36] VITALS: BP 145/89; PULSE 78; RESP 18; O2SAT 95
[2022-05-03 11:46] VITALS: BP 138/78; PULSE 74; RESP 16; TEMP 36.4; O2SAT 97
--- NOTE | 2022-05-03 12:42 | SUR.PHASEII ---
IV DC'D WITH NO S/S INFILTRATIION @1117
== END 2022-05-03 12:30 | disposition home or self-care (01) ==
PROVIDERS: PCP Family Medicine; Referring Provider Specialist; Visit Provider Specialist
PROC: (CPT 50590; principal; 2022-05-03 11:00)
PROC: (CPT 50590; 2022-05-03 11:00)
DX: N20.0 Calculus of kidney (principal); Z46.6 Encounter for fitting and adjustment of urinary device
CPT/HCPCS: 50590; 74018; 82962; J0690; J1940; J2405; J2704; J3010

== ENCOUNTER → 2022-06-05 10:06 | Outpatient (CLI) | payer OTHER, SELFPAY ==
[2022-02-25 20:06] VITALS: BMI 24.4
[2022-06-05 11:27] LABS: Calcium 8.8 mg/dL (8.4-10.2); Uric Acid 5.9 mg/dL (3.5-8.5)
[2022-06-07 08:36] LABS: Calcium 8.7 mg/dL (8.6-10.2); Parathyroid Hormone, Intact 32 pg/mL (15-65)
== END ==
PROVIDERS: PCP Family Medicine; Referring Provider Specialist; Visit Provider Specialist
DX: N20.0 Calculus of kidney (principal)
CPT/HCPCS: 36415; 82310; 83970; 84550

== ENCOUNTER 2024-04-30 12:37 | Emergency (ER) | payer OTHER, SELFPAY ==
[2022-02-25 20:06] VITALS: BMI 24.4
[2024-04-30] VITALS (10 sets, daily range): BP systolic 100–146; BP diastolic 59–94; PULSE 70–85; RESP 16–18; TEMP 36.8; O2SAT 93–98; BMI 24.0
[2024-04-30 14:03] LABS: Add Manual Diff / Slide Review NO; Basophils Absolute Auto 0 /uL (0-100); Basophils Percent Auto 0.5 % (0-2); Eosinophils Absolute Auto 200 /uL (0-450); Eosinophils Percent Auto 2.5 % (2-4); Hematocrit 40.2 % (41-53); Hemoglobin 13.8 g/dL (13.5-17.5); Lymphocytes Absolute Auto 2200 /uL (1100-4500); Lymphocytes Percent Auto 24.5 % (25-40); Mean Corpuscular HGB Conc 34.3 % (30-36); Mean Corpuscular Hemoglobin 32.7 PG (26-34); Mean Corpuscular Volume 95.2 fL (80-100); Monocytes Absolute Auto 700 /uL (0-900); Monocytes Percent Auto 7.7 % (3-14); Neutrophils Absolute Auto 5700 /uL (1500-7000); Neutrophils Percent Auto 64.8 % (50-75); Platelet Count 219 X10^3/uL (150-400); Red Blood Cell Count 4.22 X10^6/uL (4.5-5.9); Red Cell Distribution Width 13.1 % (11.6-14.8); White Blood Cell Count 8.9 X10^3/uL (4.5-11.0)
[2024-04-30 14:04] LABS: Alanine Aminotransferase 20 IU/L (<50); Albumin 4.5 g/dL (3.5-5.0); Albumin Globulin Ratio 1.4 (1.0-2.8); Alkaline Phosphatase 73 U/L (38-126); Aspartate Aminotransferase 27 IU/L (17-59); BUN Creatinine Ratio 29.5 (6-22); Bilirubin Total 0.4 mg/dL (0.2-1.3); Blood Urea Nitrogen 38 mg/dL (9-20); Calcium 9.3 mg/dL (8.4-10.2); Carbon Dioxide 23 mmol/L (22-32); Chloride 103 mmol/L (98-107); Estimated Glomerular Filt Rate 56 mL/min (>60); Globulin 3.3 g/dL (1.7-4.1); Glucose 102 mg/dL (80-110); HEMOLYSIS < 15 (0-50); Lipase 195 U/L (23-300); Potassium 4.8 mmol/L (3.4-5.1); Sodium 137 mmol/L (137-145); Total Protein 7.8 g/dL (6.3-8.2)
--- NOTE | 2024-04-30 14:20 | EKG_ITS ---
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
[2024-04-30 14:39] LABS: Urine Volume 10mL (spun)
[2024-04-30 14:41] LABS: Bacteria Urine None Seen; Culture Indicated Urine Cult Not Indicated; RBC Urine None Seen (0-5/HPF); Squamous Epithelial Cell Urine None Seen (0-5/HPF); WBC Urine 0-1/HPF (0-5/HPF)
[2024-04-30] MEDS: ONDANSETRON 4 MG/2 ML INJ IV (15:00)
[2024-04-30] MEDS: MORPHINE 4 MG/ML INJ IV (15:00)
--- NOTE | 2024-04-30 16:02 | ED_ITS ---
HPI - Male Genitourinary General Chief complaint: Urogenital-Male Stated complaint: possible kidney stones. Time Seen by Provider: 04/30/24 13:12 Source: patient Mode of arrival: Family Vehicle Limitations: no limitations History of Present Illness HPI Narrative: [age] old male history atrial fibrillation had cardiac surgery and is no longer anticoagulated, hypertension, dyslipidemia who presents with complaint of low back/flank pain radiating down his buttock and leg. Patient states started about 2 weeks ago started after he would lifted something a little bit heavy. Slowly started to improve but then little bit more lifting exacerbated his symptoms again. Pain is localized at the right flank but also little bit lower the SI region. Radiates down his right buttock little bit towards his knee. He states no fevers, no chills, no chest pain or shortness of breath. No nausea or vomiting. Denies any abdominal pain, no dysuria urgency or frequency. No issues with bowel movements. No bladder or bowel incontinence. No saddle anesthesia. Denies any weakness. 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 Patient has tried tiger balm, lidocaine patches with minimal improvement. Did have some oral ibuprofen which was somewhat helpful. Patient states he has had prior cardiac surgery. No known drug allergies. Former smoker, occasional alcohol, no recreational drugs. Related Data Home Medications Medication Instructions Recorded Confirmed aspirin 81 mg capsule 81 mg PO DAILY 02/25/22 06/19/22 atorvastatin 40 mg tablet 40 mg PO DAILY 02/25/22 06/19/22 folic acid 1 mg tablet 1 mg PO DAILY 02/25/22 06/19/22 lisinopril 2.5 mg tablet 2.5 mg PO DAILY 02/25/22 06/19/22 mecobalamin (vitamin B12) 1,000 1,000 mcg PO DAILY 02/25/22 06/19/22 mcg chewable tablet (B12 Active) metformin 500 mg tablet 500 mg PO BID 02/25/22 06/19/22 metoprolol tartrate 50 mg tablet 25 mg PO DAILY 02/25/22 06/19/22 ascorbic acid (vitamin C) 1,000 mg 500 mg PO BID 03/19/22 06/19/22 tablet cholecalciferol (vitamin D3) 25 25 mcg PO DAILY 03/19/22 06/19/22 mcg (1,000 unit) capsule (Vitamin D3) potassium chloride 20 mEq oral 20 meq PO DAILY 03/19/22 06/19/22 packet sildenafil 100 mg tablet 100 mg PO DAILY PRN Sexual Activity 03/19/22 06/19/22 vitamin E (dl, acetate) 180 mg 180 mg PO DAILY 03/19/22 06/19/22 (400 unit) capsule Previous Rx's Medication Instructions Recorded oxycodone 5 mg tablet 5 mg PO Q4H PRN pain #14 tabs 05/03/22 tamsulosin 0.4 mg capsule 0.4 mg PO BEDTIME #90 caps 07/16/22 prednisone 10 mg tablets in a dose See Rx Instructions PO .COMPLEX 04/30/24 pack #21 ea tramadol 50 mg tablet 50 mg PO Q6H PRN pain #10 tabs 04/30/24 Allergies Allergy/AdvReac Type Severity Reaction Status Date / Time No Known Drug Allergies Allergy Verified 06/19/22 13:19 Review of Systems Review of Systems ROS Unobtainable: All systems reviewed & are unremarkable except as noted in HPI and below Patient History Medical History Retained ureteral stent Skin cancer CHF (congestive heart failure) Right renal stone Hx of renal calculi Hx of skin malignancy Coronary artery disease Erectile dysfunction Type 2 diabetes mellitus with hyperlipidemia Essential hypertension Heart valve disease Coronary artery disease Surgical History Hx of cystoscopy (02/25/22) Hx of hernia repair Hx of appendectomy History of ureter stent Heart valve replaced (2018) Family History Mother Heart attack CVA (cerebral vascular accident) Hx of valvular heart disease Hypertension Brother Non-traffic vehicular accidental Social History marital status: number of children: 2 household members: spouse Smoking Status: Former smoker Smokeless tobacco user: other second hand exposure: No alcohol intake: never caffeine: No Type(s) of exercise: walking frequency: daily Smoking Status: Former smoker tobacco type: pipe alcohol intake frequency: 0-2 drinks per day Exam Narrative Exam Narrative: GENERAL: Alert and oriented x three, male in mild distress HEENT: Head normocephalic, atraumatic, EOMI, pupils reactive, face symmetric, moist mucous membranes NECK: Supple, full range of motion CARDIOVASCULAR: Regular rate and rhythm without murmurs, rubs or gallops. RESPIRATORY: Breath sounds equal bilaterally, no wheezes rales or rhonchi. ABDOMEN: Soft, nontender. Normoactive bowel sounds all 4 quadrants. No guarding or rebound, rigidity, no mass, no pulsatile mass or bruit : No CVA tenderness BACK: No cervical, thoracic or lumbar vertebral point tenderness. Patient has a little bit of tenderness over the SI joint. Patient has slightly decreased range of motion is able to adjust himself in the bed and roll over without issue. Muscle strength is 5/5 in lower extremities, patient does have some increased pain with flexion of the right hip in his lower back. DTRs are 2/4 and lower extremities. Dorsalis pedis and tibialis pulses are 2+ and lower extremities. Sensation is intact in the lower extremities. EXTREMITIES: Normal range of motion, no clubbing or edema. Neurovascularly intact NEUROLOGICAL: Cranial nerves II through XII grossly intact. Moving all extremities SKIN: Warm, dry, no petechiae, no rashes or lesions. Initial Vital Signs Initial Vital Signs: Vital Signs Temperature 98.2 F 04/30/24 12:45 Pulse Rate 79 04/30/24 12:45 Respiratory Rate 18 04/30/24 12:45 Blood Pressure 140/86 04/30/24 12:45 Pulse Oximetry 98 04/30/24 12:45 Oxygen Delivery Method Room Air 04/30/24 12:45 Course Orders Ordered: ED Orders 04/30/24 13:22 EKG-12 Lead Stat 04/30/24 13:34 Complete Blood Count AUTO DIFF Stat Comprehensive Metabolic Panel Stat Lipase Stat 04/30/24 13:45 Urine Microscopic Stat Discontinued Medications Morphine Sulfate (Morphine 4 Mg/Ml Inj) 4 mg IV NOW ONE Stop: 04/30/24 14:33 Last Admin: 04/30/24 15:00 Dose: 4 mg Documented By: JASON Ondansetron HCl (Ondansetron 4 Mg/2 Ml Inj) 4 mg IV NOW PRN PRN Reason: Nausea And Vomiting Last Admin: 04/30/24 15:00 Dose: 4 mg Documented By: JASON Ondansetron HCl (Ondansetron 4 Mg Odt) 4 mg PO NOW PRN PRN Reason: Nausea And Vomiting Vital Signs Vital signs: Vital Signs - 8 hr 04/30/24 12:45 04/30/24 12:55 04/30/24 13:00 Temperature 98.2 F Pulse Rate 79 79 78 Respiratory Rate 18 Blood Pressure 140/86 140/86 140/88 Pulse Oximetry 98 97 96 Oxygen Delivery Method Room Air 04/30/24 13:30 04/30/24 13:39 04/30/24 14:00 Temperature Pulse Rate 85 82 78 Respiratory Rate Blood Pressure 146/94 H 135/79 110/64 Pulse Oximetry 97 97 93 Oxygen Delivery Method 04/30/24 14:30 04/30/24 15:00 04/30/24 16:00 Temperature Pulse Rate 79 73 80 Respiratory Rate Blood Pressure 111/65 109/59 L 100/62 Pulse Oximetry 95 96 96 Oxygen Delivery Method 04/30/24 16:32 Temperature Pulse Rate 70 Respiratory Rate 16 Blood Pressure 116/70 Pulse Oximetry 95 Oxygen Delivery Method Room Air MDM - Male Genitourinary Lab Data 04/30/24 13:34 04/30/24 13:34 Labs: Lab Results 04/30/24 04/30/24 Range/Units 13:34 13:45 WBC 8.9 (4.5-11.0) X10^3/uL RBC 4.22 L (4.5-5.9) X10^6/uL Hgb 13.8 (13.5-17.5) g/dL Hct 40.2 L (41-53) % MCV 95.2 (80-100) fL MCH 32.7 (26-34) PG MCHC 34.3 (30-36) % RDW 13.1 (11.6-14.8) % Plt Count 219 (150-400) X10^3/uL Neut % (Auto) 64.8 (50-75) % Lymph % (Auto) 24.5 L (25-40) % [place] % (Auto) 7.7 (3-14) % Eos % (Auto) 2.5 (2-4) % Baso % (Auto) 0.5 (0-2) % Neut # (Auto) 5700 (5775-6779) /uL Lymph # (Auto) 2200 (0259-7965) /uL [place] # (Auto) 700 (0-900) /uL Eos # (Auto) 200 (0-450) /uL Baso # (Auto) 0 (0-100) /uL Sodium 137 (137-145) mmol/L Potassium 4.8 (3.4-5.1) mmol/L Chloride 103 (98-107) mmol/L Carbon Dioxide 23 (22-32) mmol/L BUN 38 H (9-20) mg/dL Creatinine 1.29 H (0.66-1.25) mg/dL Estimated GFR 56 L (>60) mL/min BUN/Creatinine Ratio 29.5 H (6-22) Glucose 102 (80-110) mg/dL Calcium 9.3 (8.4-10.2) mg/dL Total Bilirubin 0.4 (0.2-1.3) mg/dL AST 27 (17-59) IU/L ALT 20 (<50) IU/L Alkaline Phosphatase 73 (38-126) U/L Total Protein 7.8 (6.3-8.2) g/dL Albumin 4.5 (3.5-5.0) g/dL Globulin 3.3 (1.7-4.1) g/dL Albumin/Globulin Ratio 1.4 (1.0-2.8) Lipase 195 (23-300) U/L Urine RBC None seen (0-5/HPF) Urine WBC 0-1/hpf (0-5/HPF) Ur Squamous Epith Cells None seen (0-5/HPF) Urine Bacteria None seen (None) Ur Culture Indicated? Cult not indicated Vol Urine Centrifuged 10ml (spun) Urine Dip Bedside Urine Glucose Negative Bedside Urine Bilirubin - Negative Bedside Urine Ketone - Negative Urine Specific [place] 1.020 Bedside Urine Occult Blood - Negative Bedside Urine pH 6.5 Bedside Urine Protein - Negative Bedside Urine Urobilinogen - Negative Bedside Urine Nitrite - Negative Bedside Urine Leukocytes - Negative Esterase MDM Narrative Medical decision making narrative: Labs show white count 8.9 hemoglobin 13.8 platelets of 219. Chemistries show creatinine of 1.29, BUN 38, electrolytes are overall appropriate glucose is 102 LFTs are negative lipase is 195. Patient's creatinine was [id number] in 2021 following that. Urine dips negative, urine microscopy shows no red cells 1 white cell no squamous no bacteria. Based on patient's I suspect pain secondary to his back may have a little bit of sciatica or radiculopathy. Patient and I discussed he has not on any medication for diabetes short course of steroid, narcotic pain medication. Because of his renal function we will avoid regular NSAIDs at this time. We will have patient follow up with PMR in/or primary care discussed return precautions. Discharge Plan Departure Patient Disposition: Home Clinical Impression: Back pain with right-sided radiculopathy Instructions: DI for Lumbar Radiculopathy Activity Restrictions/Additional Instructions: Follow up for recheck with your primary care, sometimes physical therapy can be helpful if you are having persistent symptoms maybe helpful to have some additional imaging and/or follow up with PMR. Contacts included below please call to set up an appointment. You have been given a short course of steroid. Take this medication with food. You can take acetaminophen up to a 1000 mg every 6 hours for pain if inadequate pain you can take little bit of oral narcotic 1-2 tablets every 6 hours as needed. This medication can make you sleepy do not drive, perform hazardous activities or make any major decisions while taking it. This medication will make you constipated please take a stool softener once to twice daily until stools are soft and regular. Prescription sent to [facility] pharmacy in [place] Please return for fevers, new redness or swelling, rapidly worsening pain, new loss of bowel or bladder control, new weakness, loss of sensation, inability to lift or move your lower extremity, inability to walk safely or other new or concerning changes. Prescriptions: New prednisone 10 mg tablets,dose pack See Rx Instructions .ROUTE .COMPLEX Qty: 21 0RF Rx Instructions: 6 tabs p.o. x1 day, then 5 tabs p.o. x1 day, then 4 tablets p.o. x1 day, then 3 tabs p.o. x1 day, then 2 tabs p.o. x1 day, then 1 tab p.o. x1 day tramadol 50 mg tablet 50 mg PO Q6H PRN (Reason: pain) Qty: 10 0RF No Action atorvastatin 40 mg Tablet 40 mg PO DAILY metformin 500 mg Tablet 500 mg PO BID metoprolol tartrate 50 mg Tablet 25 mg PO DAILY folic acid 1 mg Tablet 1 mg PO DAILY lisinopril 2.5 mg Tablet 2.5 mg PO DAILY mecobalamin (vitamin B12) [B12 Active] 1,000 mcg Tablet,Chewable 1,000 mcg PO DAILY aspirin 81 mg Capsule 81 mg PO DAILY oxycodone 5 mg tablet 5 mg PO Q4H PRN (Reason: pain) Qty: 14 0RF sildenafil 100 mg tablet 100 mg PO DAILY PRN (Reason: Sexual Activity) Rx Instructions: administer 30 minutes to 4 hours before activity potassium chloride 20 mEq packet 20 meq PO DAILY cholecalciferol (vitamin D3) [Vitamin D3] 25 mcg (1,000 unit) capsule 25 mcg PO DAILY ascorbic acid (vitamin C) 1,000 mg tablet 500 mg PO BID vitamin E (dl, acetate) 180 mg (400 unit) capsule 180 mg PO DAILY tamsulosin 0.4 mg capsule 0.4 mg PO BEDTIME Qty: 90 3RF Referrals: León De Leon DO [Primary Care Provider] - Stand Alone Forms: Patient Portal/API/Survey
== END 2024-04-30 16:41 | disposition home or self-care (01) ==
PROVIDERS: Emergency Provider Emergency Medicine; PCP Family Medicine
DX: M54.16 Radiculopathy, lumbar region (principal); I10 Essential (primary) hypertension; E78.5 Hyperlipidemia, unspecified; Z86.79 Personal history of other diseases of the circulatory system; Z87.891 Personal history of nicotine dependence; Z98.890 Other specified postprocedural states
CPT/HCPCS: 36415; 80053; 81003; 81015; 83690; 85025; 93005; 96374; 96375; 99284; J2270; J2405